=== PATIENT | male | born 1965 | race Caucasian/White ===

== ENCOUNTER 2022-01-26 21:33 | Observation (INO) ==
[2022-01-26] MEDS ORDERED: SODIUM CHLORIDE 0.9% 1000ML 1,000 ML IV ONE (22:48)
[2022-01-26 23:03] LABS: Basophils # (auto) 0.17 K/uL (0-0.2); Basophils % (auto) 1.1 %; Eosinophils # (auto) 0.76 K/uL (0-0.50); Eosinophils % (auto) 5.1 %; Hematocrit (blood only) 39.9 % (40.1-51.0); Hemoglobin 12.9 g/dl (14.0-18.0); Immature Granulocytes # (auto) 0.11 K/uL (0.00-0.02); Immature Granulocytes % (auto) 0.7 %; Lymphocytes # (auto) 2.56 K/uL (1.2-3.4); Lymphocytes % (auto) 17.1 %; Mean Corpuscular Hemoglobin 29.3 pg (25.0-34.0); Mean Corpuscular Hgb Conc 32.3 g/dL (32.0-36.0); Mean Corpuscular Volume 90.5 fL (80.0-100.0); Mean Platelet Volume 11.1 fL (9.4-12.4); Monocytes # (auto) 1.13 K/uL (0.24-0.82); Monocytes % (auto) 7.5 %; Neutrophils # (auto) 10.24 K/uL (1.4-6.5); Neutrophils % (auto) 68.5 %; Platelet Count 433 K/uL (130-400); RDW Coefficient of Variation 12.7 % (11.5-14.5); RDW Standard Deviation 41.7 fL (36.4-46.3); Red Blood Count 4.41 M/uL (4.63-6.08); White Blood Count 14.97 K/ul (4.8-10.8)
--- NOTE | 2022-01-26 23:06 | Emergency Department Note ---
History of Present Illness General Chief complaint: Dehydration Stated complaint: DEHYDRATION, DIARRHEA Time Seen by Provider: 01/26/22 22:47 History of Present Illness Maximum Pain Intensity: 5 56-year-old male presents emergency department with a 3-day history of diarrhea. Patient states initially had crampy upper abdominal pain and 2 episodes of vomiting over the past 2 days. He states he felt well today however he has had 10 episodes of diarrhea that is nonbloody but watery; patient denies sick contacts, patient states that he was at the [employer] this weekend. Patient denies bloody stools, denies recent antibiotic use. Denies history of colitis.Denies specific abdominal pain currently denies fever. There are no other mitigating or alleviating factors Past Med/Surg History Social History Smoking Status: Never smoker Feels Safe at Home: Yes Immunizations: Past medical history is diabetes, past surgical history denies, social history negative for alcohol Review of Systems A total of 10 systems reviewed and were otherwise negative Constitutional: no fever Cardiovascular: no chest pain Gastrointestinal: + nausea, + vomiting and + diarrhea/loose stools; no abdominal pain Physical Exam Vital Signs Vital Signs - 24 hr 01/26/22 21:35 01/26/22 22:00 Temperature 36 C L Temperature Source Temporal Artery Scan Pulse Rate 85 78 Respiratory Rate 18 15 Respiratory Effort / Characteristics Non-Labored Spontaneous Respiratory Depth Normal Blood Pressure 108/70 102/69 Blood Pressure Mean 82 80 Pulse Oximetry 94 97 Oxygen Delivery Method Room Air Room Air Sepsis Recent Fever Within 48 Hours No Sepsis New/Unexplained Change in Mental Status No Sepsis Action Taken by Nursing No Action Required VITAL SIGNS - Vital signs and nursing notes were reviewed. GENERAL - no acute distress. Communicates well with provider and answers questions appropriately. SKIN - Without rashes. HEAD - NC/AT. EYES - PERRL with EOMI bilaterally. Sclera anicteric. Palpebral conjunctiva pink and moist with no injection noted. EARS - No deformities of external structures noted on gross examination bilaterally. NOSE - Midline and without cyanosis. No epistaxis or purulent drainage noted. Septum midline without deviation or septal hematoma noted. MOUTH/OROPHARYNX - Without perioral cyanosis. Buccal mucosa pink and moist and without leukoplakia. NECK - Neck with FROM. Supple to palpation. LUNGS - Chest wall symmetric without accessory muscle use, intercostals retractions, or central cyanosis. Normal vesicular breath sounds CTA B/L. No wheezes, rales, or rhonchi appreciated. CARDIAC - RRR with S1/S2. No murmur, rubs, or gallops appreciated. ABDOMEN - Abdominal contour soft without pulsations or visible masses. BS normoactive all four quadrants. No tenderness, palpable masses, hepato splenomegaly, or ascites noted. EXTREMITIES - No clubbing or peripheral cyanosis. +5/5 strength noted in UE/LE bilaterally. NEUROLOGIC - Cranial nerves II through XII grossly intact. PSYCH - A&Ox3 and cooperates fully with examiner. Pt is very pleasant and interacts well with examiner. Course Reevaluation(s) Reevaluation #1: Started on IV fluids, patient clearly is dehydrated with VASILE. Patient will undergo CT, the case was discussed with the hospitalist for admission Time: 00:10 Consultations Consultation #1: Discussed with Dr. Castle for admission Time: 00:11 Administered Medications Discontinued Medications Sodium Chloride (Nss 1000ml) 1,000 mls @ 999 mls/hr IV .Q1H1M ONE Stop: 01/26/22 23:48 Last Admin: 01/26/22 23:44 Dose: 999 mls/hr Documented By: Critical Care Time Critical Care Time: Yes Total Critical Care Time: 35 I have personally spent greater than 35 minutes of critical care time in the direct management of this patient. This includes bedside care, interpretation of diagnostic studies, and testing, discussion with consultants, patient, and family members, and other required patient management activities. These minutes are in excess of all separately billable procedures. Medical Decision Making Medical Records Attestation: I reviewed the patient's medical records. Home Medications Current Medication List: was personally reviewed by me Laboratory Data Attestation: I reviewed the patient's lab results. Result diagrams: 01/26/22 21:53 01/26/22 21:53 Lab Results 01/26/22 01/26/22 01/26/22 Range/Units 21:53 21:53 23:42 WBC 14.97 H (4.8-10.8) K/ul RBC 4.41 L (4.63-6.08) M/uL Hgb 12.9 L (14.0-18.0) g/dl Hct 39.9 L (40.1-51.0) % MCV 90.5 (80.0-100.0) fL MCH 29.3 (25.0-34.0) pg MCHC 32.3 (32.0-36.0) g/dL RDW Std Deviation 41.7 (36.4-46.3) fL RDW Coeff of Flaquita 12.7 (11.5-14.5) % Plt Count 433 H (130-400) K/uL MPV 11.1 (9.4-12.4) fL Immature Gran % (Auto) 0.7 % Neut % (Auto) 68.5 % Lymph % (Auto) 17.1 % [place] % (Auto) 7.5 % Eos % (Auto) 5.1 % Baso % (Auto) 1.1 % Neut # (Auto) 10.24 H (1.4-6.5) K/uL Lymph # (Auto) 2.56 (1.2-3.4) K/uL [place] # (Auto) 1.13 H (0.24-0.82) K/uL Eos # (Auto) 0.76 H (0-0.50) K/uL Baso # (Auto) 0.17 (0-0.2) K/uL Immature Gran # (Auto) 0.11 H (0.00-0.02) K/uL Sodium 126 L (136-145) mmol/L Potassium 4.5 (3.5-5.1) mmol/L Chloride 101 (98-107) mmol/L Carbon Dioxide 16 L (21-32) mmol/L Anion Gap 9 (3-11) BUN 75 H (6-23) mg/dl Creatinine 3.30 H (0.6-1.4) mg/dl Est Cr Clr Drug Dosing 23.6 ml/min Est GFR ( Amer) 22.6 ml/min Est GFR (Non-Af Amer) 19.5 ml/min BUN/Creatinine Ratio 22.7 H (10-20) Glucose 153 H (70-99(Fasting)) mg/dl Calcium 9.2 (8.5-10.1) mg/dl Total Bilirubin 0.9 (0.2-1.0) mg/dl AST 25 (13-39) U/L ALT 26 (7-52) U/L Alkaline Phosphatase 44 (34-104) U/L Total Protein 8.5 H (6.0-8.3) gm/dl Albumin 5.1 H (3.4-5.0) gm/dl Globulin 3.4 (2.5-4.0) gm/dl Albumin/Globulin Ratio 1.5 (0.9-2) Lipase 59 (11-82) U/L SARS-CoV-2, RNA, NAAT NEGATIVE (NEGATIVE) MDM Narrative Medical decision making differential diagnosis includes dehydration, metabolic derangement, colitis, gastroenteritis, gastritis. Plan is to check labs, give IV fluids Impression & Plan VASILE (acute kidney injury), Dehydration Discharge Plan Visit Data Chief Complaint: Dehydration Stated Complaint: DEHYDRATION, DIARRHEA ED Provider: Landon Sapp Discharge Problem: VASILE (acute kidney injury), Dehydration Patient Disposition: Being Evaluated by Hospitalist Forms Stand Alone Forms: My [facility] Referrals Referrals: PCP,NO [Physician] -
[2022-01-26 23:13] LABS: Albumin Globulin Ratio 1.5 (0.9-2); Albumin Level 5.1 gm/dl (3.4-5.0); BUN Creatinine Ratio 22.7 (10-20); Bilirubin,Total 0.9 mg/dl (0.2-1.0); Calcium 9.2 mg/dl (8.5-10.1); Creatinine Clr Calc Pharmacy 23.6 ml/min; Est GFR (African American) 22.6 ml/min; Est GFR (Non-African American) 19.5 ml/min; Globulin 3.4 gm/dl (2.5-4.0); Potassium 4.5 mmol/L (3.5-5.1); Total Protein 8.5 gm/dl (6.0-8.3)
[2022-01-26 23:59] LABS: Base Excess VBG -11.9 mEq/L; HCO3 VBG 15 mmol/L; Oxygen Saturation VBG 60.2 %; PCO2 VBG 38 mmHg (38-50); PO2 VBG 37 mmHg; pH VBG 7.21 (7.36-7.41)
--- NOTE | 2022-01-27 00:36 | History & Physical Report ---
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 Basal bolus Insulin, ISS BG goal 1 10-1 40, carb count coverage DVT prophylaxis. Heparin subcu Full code Text document was generated using [employer] voice recognition software. It may contain grammatical or spelling errors. Kindly contact undersigned for clarification of any documentation item in questi on. History of Present Illness Chief Complaint: Diarrhea Primary Care Provider: Timmy Chavez MD History obtained from patient and records. 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 4 days history of nausea vomiting watery diarrhea symptoms without chest pain or shortness of breath. No fever, some chills. Transient abdominal cramping. [facility] prior to diarrheal illness. No recent antibiotic Rx. Patient consulted ER for worsening symptoms. 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 Allergies Allergy/AdvReac Type Severity Reaction Status Date / Time lisinopril Allergy Intermediate Swelling Verified 01/27/22 01:07 of Lip/Tongue/Throat Home Medications Medication Instructions Recorded Confirmed Type Vitamin B-12 1,000 mcg PO DAILY 01/27/22 01/27/22 History albuterol sulfate 2 puff inhalation QID PRN 01/27/22 01/27/22 History Congestion amlodipine 10 mg PO DAILY 01/27/22 01/27/22 History aspirin 81 mg PO DAILY 01/27/22 01/27/22 History carvedilol 25 mg tablet 37.5 mg PO BID 01/27/22 01/27/22 History cetirizine 10 mg tablet (Zyrtec) 10 mg PO HS 01/27/22 01/27/22 History dulaglutide 4.5 mg/0.5 mL 4.5 mg subcut WK 01/27/22 01/27/22 History subcutaneous pen injector (Trulicity) empagliflozin 25 mg tablet 25 mg PO DAILY 01/27/22 01/27/22 History (Jardiance) fenofibrate micronized 67 mg 67 mg PO DAILY 01/27/22 01/27/22 History capsule levothyroxine 100 mcg tablet 100 mcg PO DAILY 01/27/22 01/27/22 History losartan 100 mg tablet 100 mg PO DAILY 01/27/22 01/27/22 History metformin 500 mg tablet 500 mg PO BID 01/27/22 01/27/22 History omeprazole 20 mg capsule,delayed 20 mg PO DAILY 01/27/22 01/27/22 History release rosuvastatin 5 mg tablet 5 mg PO DAILY 01/27/22 01/27/22 History spironolactone 25 mg tablet 25 mg PO DAILY 01/27/22 01/27/22 History terazosin 1 mg capsule 2 mg PO HS 01/27/22 01/27/22 History testosterone 20.25 mg/1.25 gram 20.25 mg transdermal DAILY 01/27/22 01/27/22 History (1.62 %) transdermal gel pump Past Med/Surg History Social History Smoking Status: Never smoker Hx Alcohol Use: No Hx Substance Use: No Preferred Language: Mauritanian Communication Ability: Effective Measurement Psychologist Required: No Beliefs That Will Affect Care: None Current Living Situation: Spouse Other Information That Helps Us Care for You: No Feels Safe at Home: Yes Safety Concerns: Feels Safe At This Time Assistive Devices: CPAP Review of Systems Review of Systems: As per HPI, all other systems reviewed and negative Physical Exam Physical Exam: GENERAL: Comfortable, pleasant, no respiratory distress SKIN: Pallor, warm HEENT: Bespectacled, pale palpebral conjunctivae, no ptosis, dry buccal mucosa NECK : Supple, no tenderness CHEST : CTA, no tenderness HEART : RRR, no obvious murmurs ABDOMEN: Some distention, nontender EXTREMITIES : No LE swelling/tenderness, no other conspicuous deformities noted NEUROLOGIC : Coherent, no facial asymmetry, no other gross focality Results & Data Results & Data ([facility]) Vital Signs (Past 12 Hours) Vital Signs Temp Pulse Resp BP Pulse Ox O2 Del Method 01/27/22 00:31 76 13 117/74 99 Room Air 01/26/22 22:00 78 15 102/69 97 Room Air 01/26/22 21:35 36 C L 85 18 108/70 94 Room Air Laboratory Results Laboratory Results WBC 14.97 K/ul (4.8-10.8) H 01/26/22 21:53 RBC 4.41 M/uL (4.63-6.08) L 01/26/22 21:53 Hgb 12.9 g/dl (14.0-18.0) L 01/26/22 21:53 Hct 39.9 % (40.1-51.0) L 01/26/22 21:53 MCV 90.5 fL (80.0-100.0) 01/26/22 21:53 MCH 29.3 pg (25.0-34.0) 01/26/22 21:53 MCHC 32.3 g/dL (32.0-36.0) 01/26/22 21:53 RDW Std Deviation 41.7 fL (36.4-46.3) 01/26/22 21:53 RDW Coeff of Flaquita 12.7 % (11.5-14.5) 01/26/22 21:53 Plt Count 433 K/uL (130-400) H 01/26/22 21:53 MPV 11.1 fL (9.4-12.4) 01/26/22 21:53 Immature Gran % (Auto) 0.7 % 01/26/22 21:53 Neut % (Auto) 68.5 % 01/26/22 21:53 Lymph % (Auto) 17.1 % 01/26/22 21:53 [place] % (Auto) 7.5 % 01/26/22 21:53 Eos % (Auto) 5.1 % 01/26/22 21:53 Baso % (Auto) 1.1 % 01/26/22 21:53 Neut # (Auto) 10.24 K/uL (1.4-6.5) H 01/26/22 21:53 Lymph # (Auto) 2.56 K/uL (1.2-3.4) 01/26/22 21:53 [place] # (Auto) 1.13 K/uL (0.24-0.82) H 01/26/22 21:53 Eos # (Auto) 0.76 K/uL (0-0.50) H 01/26/22 21:53 Baso # (Auto) 0.17 K/uL (0-0.2) 01/26/22 21:53 Immature Gran # (Auto) 0.11 K/uL (0.00-0.02) H 01/26/22 21:53 VBG pH 7.21 (7.36-7.41) L 01/26/22 23:53 VBG pCO2 38 mmHg (38-50) 01/26/22 23:53 VBG pO2 37 mmHg 01/26/22 23:53 VBG HCO3 15 mmol/L 01/26/22 23:53 VBG O2 Saturation 60.2 % 01/26/22 23:53 VBG Base Excess -11.9 mEq/L 01/26/22 23:53 Sodium 126 mmol/L (136-145) L 01/26/22 21:53 Potassium 4.5 mmol/L (3.5-5.1) 01/26/22 21:53 Chloride 101 mmol/L (98-107) 01/26/22 21:53 Carbon Dioxide 16 mmol/L (21-32) L 01/26/22 21:53 Anion Gap 9 (3-11) 01/26/22 21:53 BUN 75 mg/dl (6-23) H 01/26/22 21:53 Creatinine 3.30 mg/dl (0.6-1.4) H 01/26/22 21:53 Est Cr Clr Drug Dosing 23.6 ml/min 01/26/22 21:53 Est GFR ( Amer) 22.6 ml/min 08/30/22 21:53 Est GFR (Non-Af Amer) 19.5 ml/min 01/26/22 21:53 BUN/Creatinine Ratio 22.7 (10-20) H 01/26/22 21:53 Glucose 153 mg/dl (70-99(Fasting)) H 01/26/22 21:53 Calcium 9.2 mg/dl (8.5-10.1) 01/26/22 21:53 Total Bilirubin 0.9 mg/dl (0.2-1.0) 01/26/22 21:53 AST 25 U/L (13-39) 01/26/22 21:53 ALT 26 U/L (7-52) 01/26/22 21:53 Alkaline Phosphatase 44 U/L (34-104) 01/26/22 21:53 Total Protein 8.5 gm/dl (6.0-8.3) H 01/26/22 21:53 Albumin 5.1 gm/dl (3.4-5.0) H 01/26/22 21:53 Globulin 3.4 gm/dl (2.5-4.0) 01/26/22 21:53 Albumin/Globulin Ratio 1.5 (0.9-2) 01/26/22 21:53 Lipase 59 U/L (11-82) 01/26/22 21:53 SARS-CoV-2, RNA, NAAT NEGATIVE (NEGATIVE) 01/26/22 23:[address] abd pelvis initial read: Fluid within the colon compatible with a nonspecific diarrheal state. No colonicwall thickening evident to suggest colitis Moderate gastric distention predominantlyfluid-filled maysimplyreflect recent fluid ingestion. Further GI evaluation recommended onlyin the setting of symptoms of gastric outlet obstruction Solid organs in the upper abdomen are normal The gallbladder is contracted Chest x-ray as per my interpretation borderline cardiomegaly
[2022-01-27] MEDS ORDERED: LACTATED RINGER'S 1,000 ML IV ONE (00:52)
[2022-01-27 01:39] LABS: Appearance Urine Clear (Clear); Bilirubin Urine Negative (Negative); Blood Urine Negative (Negative); Color Urine Yellow; Glucose Urine UA 3+ (Negative); Ketones Urine Negative (Negative); Leukocyte Esterase Urine Negative (Negative); Nitrite Urine Negative (Negative); Protein Urine Negative (Negative); Specific Gravity Urine 1.009 (1.000-1.030); Urobilinogen Urine Negative (Negative)
[2022-01-27 01:46] LABS: BUN Creatinine Ratio 26.7 (10-20); Calcium 8.2 mg/dl (8.5-10.1); Creatinine Clr Calc Pharmacy 27.7 ml/min; Est GFR (African American) 27.5 ml/min; Est GFR (Non-African American) 23.7 ml/min; Potassium 4.4 mmol/L (3.5-5.1)
[2022-01-27 01:52] LABS: Adenovirus F 40/41 PCR Not Detected (NotDetected); Astrovirus PCR Not Detected (NotDetected); Campylobacter PCR Not Detected (NotDetected); Clostridium diff Toxin A/B PCR Not Detected (NotDetected); Cryptosporidium PCR Not Detected (NotDetected); Cyclospora cayetanensis PCR Not Detected (NotDetected); Entamoeba histolytica PCR Not Detected (NotDetected); Enteroaggregative E.coli(EAEC) Not Detected (NotDetected); Enteropathogenic E.coli (EPEC) Not Detected (NotDetected); Enterotoxigenic E.coli (ETEC) Not Detected (NotDetected); Giardia lamblia PCR Not Detected (NotDetected); Norovirus GI/GII PCR Not Detected (NotDetected); Plesiomonas shigelloides PCR Not Detected (NotDetected); Rotavirus A PCR Not Detected (NotDetected); Salmonella PCR Not Detected (NotDetected); Sapovirus PCR Not Detected (NotDetected); Shiga-like Toxin E.coli (STEC) Not Detected (NotDetected); Shigella/Enteroinvasive E.coli Not Detected (NotDetected); Vibrio cholerae PCR Not Detected (NotDetected); Vibrio species PCR Not Detected (NotDetected); Yersinia enterocolitica PCR Not Detected (NotDetected)
[2022-01-27] MEDS ORDERED: PROMETHAZINE HCL 12.5 MG in SODIUM CHLORIDE 0.9% 50 ML IV PRN (03:54)
[2022-01-27] MEDS ORDERED: ACETAMINOPHEN 325 MG TAB PO PRN (03:54)
[2022-01-27] MEDS ORDERED: oxyCODONE HCL IR 5 MG TAB (IMMEDIATE RELEASE) PO PRN (03:54)
[2022-01-27] MEDS ORDERED: GLUCOSE 10 TAB/TUBE PO PRN (03:54)
[2022-01-27] MEDS ORDERED: CARBOHYDRATES FOR HYPOGLYCEMIA PO PRN (03:54)
[2022-01-27] MEDS ORDERED: GLUCAGON FOR INJ 1 MG VIAL SQ PRN (03:54)
[2022-01-27] MEDS ORDERED: DEXTROSE 50% 50 ML SYRINGE IV PRN (03:54)
[2022-01-27] MEDS ORDERED: GLUCOSE 40% GEL 15 GM TUBE PO PRN (03:54)
[2022-01-27] MEDS: INSULIN ASPART PER UNIT SC SCH ×5 (04:52→20:16)
[2022-01-27] MEDS: LEVOTHYROXINE SODIUM 100 MCG TABLET PO SCH (06:07)
[2022-01-27] MEDS: HEPARIN SOD 5,000 UNIT/0.5 ML VIAL SQ SCH ×3 (06:20→21:53)
[2022-01-27 07:01] LABS: Basophils # (auto) 0.11 K/uL (0-0.2); Basophils % (auto) 0.9 %; Eosinophils # (auto) 0.77 K/uL (0-0.50); Eosinophils % (auto) 6.5 %; Hematocrit (blood only) 34.9 % (40.1-51.0); Hemoglobin 11.3 g/dl (14.0-18.0); Immature Granulocytes # (auto) 0.08 K/uL (0.00-0.02); Immature Granulocytes % (auto) 0.7 %; Lymphocytes # (auto) 2.21 K/uL (1.2-3.4); Lymphocytes % (auto) 18.7 %; Mean Corpuscular Hgb Conc 32.4 g/dL (32.0-36.0); Mean Corpuscular Volume 89.7 fL (80.0-100.0); Mean Platelet Volume 10.3 fL (9.4-12.4); Monocytes % (auto) 8.5 %; Neutrophils # (auto) 7.64 K/uL (1.4-6.5); Neutrophils % (auto) 64.7 %; Platelet Count 335 K/uL (130-400); RDW Coefficient of Variation 12.7 % (11.5-14.5); RDW Standard Deviation 41.4 fL (36.4-46.3); Red Blood Count 3.89 M/uL (4.63-6.08); White Blood Count 11.81 K/ul (4.8-10.8)
[2022-01-27 07:28] LABS: BUN Creatinine Ratio 28.3 (10-20); Calcium 8.1 mg/dl (8.5-10.1); Creatinine Clr Calc Pharmacy 31.5 ml/min; Est GFR (African American) 32.1 ml/min; Est GFR (Non-African American) 27.7 ml/min; Potassium 4.4 mmol/L (3.5-5.1)
[2022-01-27] MEDS ORDERED: LACTATED RINGER'S 1,000 ML IV SCH (07:45)
--- NOTE | 2022-01-27 08:00 | CT Scan Report ---
CT abd pelvis wo con CLINICAL HISTORY: diarrhea TECHNIQUE: Helical axial images of the abdomen and pelvis were obtained. Automated dose lowering tech niques and/or adjustment according to patient size were utilized for this exam. This exam was perfor med without intravenous contrast. CT DOSE: 331.82 mGy.cm COMPARISON: None available at the time of this dictation. FINDINGS: Lower chest: No acute abnormality Liver: Hepatic steatosis is noted. Gallbladder and biliary tree: No calcified gallstones. Normal caliber wall. No intra- or extrahepatic biliary ductal dilation. Pancreas: Unremarkable, no focal lesions. Spleen: Unremarkable. Adrenals: Unremarkable. Kidneys and ureters: Unremarkable. Bladder: Limited evaluation due to underdistention. Reproductive organs: Unremarkable. Bowel: Liquid contents are seen in the colon. No wall thickening or fat stranding is seen. The append ix appears normal. The stomach is distended. Lymph nodes Retroperitoneal: Unremarkable. Pelvic: Unremarkable. Mesenteric: Subcentimeter lymph nodes are noted. Peritoneum: Normal. Vessels: Unremarkable. Abdominal wall: Bilateral fat-containing inguinal hernias are seen. Bones: Degenerative changes in the visualized spine. IMPRESSION: 1. Limited contents in the colon compatible with diarrhea. No evidence of bowel inflammation or obst ruction. 2. Hepatic steatosis. ACT 112: Negative or not required by law. Electronically signed by: Srinivas Gill M.D. 01/27/2022 7:58 AM
[2022-01-27] MEDS: PANTOprazole 40 MG TAB PO SCH (08:07)
[2022-01-27] MEDS: FENOFIBRATE NANOCRYSTALLIZED 48 MG TABLET PO SCH (08:07)
[2022-01-27] MEDS: ROSUVASTATIN CALCIUM 5 MG TAB PO SCH (08:07)
[2022-01-27] MEDS: amLODIPine BESYLATE 5 MG TAB PO SCH (08:07)
[2022-01-27] MEDS: MAGNESIUM SULFATE / D5W 1 GM/100 ML BAG IV SCH ×3 (08:13→12:11)
[2022-01-27] MEDS: LANTUS PER UNIT CHARGE SQ SCH (08:18)
--- NOTE | 2022-01-27 08:56 | XRay Report ---
XR chest 1V portable HISTORY: Renal failure. COMPARISON: None. FINDINGS: The lungs are clear. Cardiac silhouette is top normal in size. No pleural effusions. No pne umothorax. IMPRESSION: No acute process. ACT 112: Negative or not required by law. Electronically signed by: Alvaro Bass M.D. 01/27/2022 8:55 AM
--- NOTE | 2022-01-27 09:59 | Ultrasound Report ---
RENAL ULTRASOUND HISTORY: Acute kidney injury COMPARISON: Abdomen and pelvis CT 01/27/2022. FINDINGS: Right kidney: 11.0 cm. No hydronephrosis. Normal corticomedullary differentiation. Mild cortical thin robert/lobulation. Left kidney: 11.2 cm. No hydronephrosis. Normal corticomedullary differentiation. Mild cortical thinn ing/lobulation. Bladder: No bladder wall thickening. The bilateral ureteral jets were identified. Miscellaneous: Hepatic steatosis. IMPRESSION: 1. Mild bilateral renal cortical thinning/lobulation. This is likely chronic. 2. No hydronephrosis. 3. Hepatic steatosis ACT 112: Negative or not required by law. Electronically signed by: Alvaro Bass M.D. 01/27/2022 9:57 AM
--- NOTE | 2022-01-27 12:44 | Hospitalist Progress Note ---
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 He was found to have VASILE on CKD, hyponatremia and non- anion gap metabolic acidosis. Patient was admitted to telemetry floor for further care. Gastroenteritis VASILE on CKD, likely prerenal secondary to gastroenteritis Hyponatremia likely hypovolemic Non-anion gap metabolic acidosis secondary to diarrhea and VASILE Afebrile, normotensive and saturating well on room air. WBC down trended from 14.9-11.8. Sodium improved from 1 26-1 28. Urine osmolarity on the lower side. Calculate serum osmolality was 287; serum osmolarity in lab 301. Higher serum osmolarity in setting of hyponatremia due to increased BUN and glucose. [id number] Creatinine down trended to 2.47; baseline around 1.6 ( labs done in 04/2021) GI bio fire is negative Renal ultrasoundno hydronephrosis Plan; Continue IV hydration for now. No fever, chills, blood/mucus in stool. This is more suggestive of viral gastroenteritis. Advance diet as tolerated. -Continue to monitor sodium; appropriately going up. -Nephrology consulted; patient follows up with Dr. Augustine as outpatient. -Need to hold his antihypertensive. Only on amlodipine currently. Chronic conditions; Type 2 diabetes mellitus, continue on glargine and sliding scale Hyperlipidemia continue rosuvastatin Hypothyroidismcontinue levothyroxine CODE STATUS full DVT ppx- heparin Dispo- pending clinical improvement; [facility] home. Admission and Anticipated Discharge Date Admission Date: January 27, 2022 Subjective Patient seen and examined at bedside. He continues to have loose bowel movement. However, he feels that the abdominal pain has decreased compared to presentation. He says that his appetite is back and would like to try regular food. Review of Systems Review of Systems: All systems reviewed & are unremarkable except as noted in Subjective Physical Exam Physical Exam: GENERAL: Comfortable, pleasant, no respiratory distress SKIN: Pallor, warm HEENT: Bespectacled, pale palpebral conjunctivae, no ptosis, dry buccal mucosa NECK : Supple, no tenderness CHEST : CTA, no tenderness HEART : RRR, no obvious murmurs ABDOMEN: Some distention, nontender EXTREMITIES : No LE swelling/tenderness, no other conspicuous deformities noted NEUROLOGIC : Coherent, no facial asymmetry, no other gross focality Results & Data Results & Data ([facility]) Vital Signs (Past 12 Hours) Vital Signs Temp Pulse Pulse Resp BP BP BP 01/27/22 11:31 36.6 C 67 16 107/64 01/27/22 10:49 75 01/27/22 07:50 36.8 C 76 18 103/61 01/27/22 04:53 36.9 C 78 18 112/74 01/27/22 02:18 77 01/27/22 02:07 36.9 C 78 18 112/74 01/27/22 01:00 75 13 118/72 01/27/22 00:31 76 13 117/74 Pulse Ox O2 Del Method 01/27/22 11:31 97 Room Air 01/27/22 10:49 01/27/22 07:50 97 Room Air 01/27/22 04:53 98 Room Air 01/27/22 02:18 01/27/22 02:07 98 Room Air 01/27/22 01:00 97 Room Air 01/27/22 00:31 99 Room Air Diagnostic Findings Laboratory Results WBC 11.81 K/ul (4.8-10.8) H 01/27/22 06:42 RBC 3.89 M/uL (4.63-6.08) L 01/27/22 06:42 Hgb 11.3 g/dl (14.0-18.0) L 01/27/22 06:42 Hct 34.9 % (40.1-51.0) L 01/27/22 06:42 MCV 89.7 fL (80.0-100.0) 01/27/22 06:42 MCH 29.0 pg (25.0-34.0) 01/27/22 06:42 MCHC 32.4 g/dL (32.0-36.0) 01/27/22 06:42 RDW Std Deviation 41.4 fL (36.4-46.3) 01/27/22 06:42 RDW Coeff of [place]qu[place] 12.7 % (11.5-14.5) 01/27/22 06:42 Plt Count 335 K/uL (130-400) 01/27/22 06:42 MPV 10.3 fL (9.4-12.4) 01/27/22 06:42 Immature Gran % (Auto) 0.7 % 01/27/22 06:42 Neut % (Auto) 64.7 % 01/27/22 06:42 Lymph % (Auto) 18.7 % 01/27/22 06:42 [place] % (Auto) 8.5 % 01/27/22 06:42 Eos % (Auto) 6.5 % 01/27/22 06:42 Baso % (Auto) 0.9 % 01/27/22 06:42 Neut # (Auto) 7.64 K/uL (1.4-6.5) H 01/27/22 06:42 Lymph # (Auto) 2.21 K/uL (1.2-3.4) 01/27/22 06:42 [place] # (Auto) 1.00 K/uL (0.24-0.82) H 01/27/22 06:42 Eos # (Auto) 0.77 K/uL (0-0.50) H 01/27/22 06:42 Baso # (Auto) 0.11 K/uL (0-0.2) 01/27/22 06:42 Immature Gran # (Auto) 0.08 K/uL (0.00-0.02) H 01/27/22 06:42 VBG pH 7.21 (7.36-7.41) L 01/26/22 23:53 VBG pCO2 38 mmHg (38-50) 01/26/22 23:53 VBG pO2 37 mmHg 01/26/22 23:53 VBG HCO3 15 mmol/L 01/26/22 23:53 VBG O2 Saturation 60.2 % 01/26/22 23:53 VBG Base Excess -11.9 mEq/L 01/26/22 23:53 Sodium 128 mmol/L (136-145) L 01/27/22 06:42 Potassium 4.4 mmol/L (3.5-5.1) 01/27/22 06:42 Chloride 107 mmol/L (98-107) 01/27/22 06:42 Carbon Dioxide 14 mmol/L (21-32) L 01/27/22 06:42 Anion Gap 7 (3-11) 01/27/22 06:42 BUN 70 mg/dl (6-23) H 01/27/22 06:42 Creatinine 2.47 mg/dl (0.6-1.4) H D 01/27/22 06:42 Est Cr Clr Drug Dosing 31.5 ml/min 01/27/22 06:42 Est GFR ( Amer) 32.1 ml/min 01/27/22 06:42 Est GFR (Non-Af Amer) 27.7 ml/min 01/27/22 06:42 BUN/Creatinine Ratio 28.3 (10-20) H 01/27/22 06:42 Glucose 108 mg/dl (70-99(Fasting)) H 01/27/22 06:42 POC Glucose 101 mg/dl (70-99) H 01/27/22 11:45 Osmolality 301 mOsm/kg (280-300) H 01/26/22 21:53 Calcium 8.1 mg/dl (8.5-10.1) L 01/27/22 06:42 Magnesium 1.3 mg/dl (1.7-2.4) L 01/26/22 21:53 Total Bilirubin 0.9 mg/dl (0.2-1.0) 01/26/22 21:53 AST 25 U/L (13-39) 01/26/22 21:53 ALT 26 U/L (7-52) 01/26/22 21:53 Alkaline Phosphatase 44 U/L (34-104) 01/26/22 21:53 Total Protein 8.5 gm/dl (6.0-8.3) H 01/26/22 21:53 Albumin 5.1 gm/dl (3.4-5.0) H 01/26/22 21:53 Globulin 3.4 gm/dl (2.5-4.0) 01/26/22 21:53 Albumin/Globulin Ratio 1.5 (0.9-2) 01/26/22 21:53 Lipase 59 U/L (11-82) 01/26/22 21:53 TSH 3.185 uIu/ml (0.300-4.500) 01/26/22 21:53 Urine Color Yellow 01/27/22 01:32 Urine Appearance Clear (Clear) 01/27/22 01:32 Urine pH 5.0 (4.5-7.5) 01/27/22 01:32 Ur Specific [place] 1.009 (1.000-1.030) 01/27/22:32 Urine Protein Negative (Negative) 01/27/22:32 Urine Glucose (UA) 3+ (Negative) H 01/27/22 01:32 Urine Ketones Negative (Negative) 01/27/22:32 Urine Blood Negative (Negative) 01/27/22: Urine Nitrite Negative (Negative) 01/27/22 01: Urine Bilirubin Negative (Negative) 01/27/22 01:32 Urine Urobilinogen Negative (Negative) 01/27/22:32 Ur Leukocyte Esterase Negative (Negative) 01/27/22:32 Urine Osmolality 238 mOsm/kg (500-800) L 01/27/22 01:32 Stl C. cayetanensis PCR Not Detected (NotDetected) 01/27/22 00:25 Stool Rotavirus A PCR Not Detected (NotDetected) 01/27/22 00:25 Stl Adenov F 40/41 PCR Not Detected (NotDetected) 01/27/22 00:25 Stool Astrovirus (PCR) Not Detected (NotDetected) 01/27/22 00:25 Stool Campylobacter PCR Not Detected (NotDetected) 01/27/22 00:25 Stl C. diff Tox A/B PCR Not Detected (NotDetected) 01/27/22 00:25 Stool Cryptosporidium PCR Not Detected (NotDetected) 01/27/22 00:25 Stl E.coli Shiga Tox PCR Not Detected (NotDetected) 01/27/22 00:25 Stl Enterotoxigenic E PCR Not Detected (NotDetected) 01/27/22 00:25 Stool EPEC (PCR) Not Detected (NotDetected) 01/27/22 00:25 Stool EAEC (PCR) Not Detected (NotDetected) 01/27/22 00:25 Stl E. histolytica PCR Not Detected (NotDetected) 01/27/22 00:25 Stool Giardia Lamblia PCR Not Detected (NotDetected) 01/27/22 00:25 Stool Salmonella PCR Not Detected (NotDetected) 01/27/22 00:25 Stool Sapovirus (PCR) Not Detected (NotDetected) 01/27/22 00:25 Stl P. shigelloides PCR Not Detected (NotDetected) 01/27/22 00:25 Stl Shigella/EIEC PCR Not Detected (NotDetected) 01/27/22 00:25 St Y.enterocolitica PCR Not Detected (NotDetected) 01/27/22 00:25 Stool Vibrio (PCR) Not Detected (NotDetected) 01/27/22 00:25 Stl Vibrio cholerae PCR Not Detected (NotDetected) 01/27/22 00:25 Stl Norovirus GI/GII PCR Not Detected (NotDetected) 01/27/22 00:25 SARS-CoV-2, RNA, NAAT NEGATIVE (NEGATIVE) 01/26/22 23:42 Impressions Abdomen/Pelvis CT 01/26/22 23:27 CT abd pelvis wo con CLINICAL HISTORY: diarrhea TECHNIQUE: Helical axial images of the abdomen and pelvis were obtained. Automated dose lowering techniques and/or adjustment according to patient size were utilized for this exam. This exam was performed without intravenous contrast. CT DOSE: 331.82 mGy.cm COMPARISON: None available at the time of this dictation. FINDINGS: Lower chest: No acute abnormality Liver: Hepatic steatosis is noted. Gallbladder and biliary tree: No calcified gallstones. Normal caliber wall. No intra- or extrahepatic biliary ductal dilation. Pancreas: Unremarkable, no focal lesions. Spleen: Unremarkable. Adrenals: Unremarkable. Kidneys and ureters: Unremarkable. Bladder: Limited evaluation due to underdistention. Reproductive organs: Unremarkable. Bowel: Liquid contents are seen in the colon. No wall thickening or fat stranding is seen. The appendix appears normal. The stomach is distended. Lymph nodes Retroperitoneal: Unremarkable. Pelvic: Unremarkable. Mesenteric: Subcentimeter lymph nodes are noted. Peritoneum: Normal. Vessels: Unremarkable. Abdominal wall: Bilateral fat-containing inguinal hernias are seen. Bones: Degenerative changes in the visualized spine. IMPRESSION: 1. Limited contents in the colon compatible with diarrhea. No evidence of bowel inflammation or obstruction. 2. Hepatic steatosis. ACT 112: Negative or not required by law. Electronically signed by: Srinivas Gill M.D. 01/27/2022 7:58 AM Chest X-Ray 01/27/22 00:16 XR chest 1V portable HISTORY: Renal failure. COMPARISON: None. FINDINGS: The lungs are clear. Cardiac silhouette is top normal in size. No pleural effusions. No pneumothorax. IMPRESSION: No acute process. ACT 112: Negative or not required by law. Electronically signed by: Alvaro Bass M.D. 01/27/2022 8:55 AM Renal Ultrasound 01/27/22 07:43 RENAL ULTRASOUND HISTORY: Acute kidney injury COMPARISON: Abdomen and pelvis CT 01/27/2022. FINDINGS: Right kidney: 11.0 cm. No hydronephrosis. Normal corticomedullary differentiation. Mild cortical thinning/lobulation. Left kidney: 11.2 cm. No hydronephrosis. Normal corticomedullary differentia tion. Mild cortical thinning/lobulation. Bladder: No bladder wall thickening. The bilateral ureteral jets were identified. Miscellaneous: Hepatic steatosis. IMPRESSION: 1. Mild bilateral renal cortical thinning/lobulation. This is likely chronic. 2. No hydronephrosis. 3. Hepatic steatosis ACT 112: Negative or not required by law. Electronically signed by: Alvaro Bass M.D. 01/27/2022 9:57 AM
--- NOTE | 2022-01-27 17:18 | Nephrology Consultation ---
Date of Consultation January 27, 2022 Assessment & Plan (1) Hyponatremia: no prior/OP hx of hyponatremia; likely hypovolemic based on hx/response. asymptomatic improving on labs this am. Goal sNa for this evening is 132 though would accept to 137 -recheck bmp and mag now > may need D5W versus just observation -Stop IVF (2) Acute on chronic renal failure: improving w/ supportive care; cont same -agree w/ holding jardiance, metformin, leatha antag -daily bmp History of Present Illness Reason for Consultation: hyponatremia, VASILE Requesting Physician: Dr White Attending Physician: Shailesh White MD History of Present Illness 56 y/o M whom I'm asked to evaluate for hyponatremia and VASILE was admitted for management of volume depletion and VASILE on CKD after he presented w/ presumed food borne illness. PMH includes nonproteinuric CKD 3A/B baseline creatinine 1.6-1.7, panhypopituitarism from trauma w/ resultant growth hormone deficiency/hypogonadism/hypothyroid, CAD, HTN, HL, DM on po meds, severe EDA on CPAP. Ate a sausage sandwich at [employer] and w/in 12 hrs developed n/v/watery diarrhea (q30 min for some of the time) intermittent crampy abd pain which persisted x 3 days. No f/c; no rash. no new/worrisome voiding sx. did have some severe heartburn as well at start and intermittently; has resolved since arrival here. On arrival his sNa was 126 (to 128 by 0900); creatinine 3.3 (to 2.5 by 0900); WBC 14K. Started on LR at 100 mL/hr after 1LNS. Allergies Allergy/AdvReac Type Severity Reaction Status Date / Time lisinopril Allergy Intermediate Swelling Verified 01/27/22 01:07 of Lip/Tongue/Throat Home Medications Medication Instructions Recorded Confirmed Type Vitamin B-12 1,000 mcg PO DAILY 01/27/22 01/27/22 History albuterol sulfate 2 puff inhalation QID PRN 01/27/22 01/27/22 History Congestion amlodipine 10 mg PO DAILY 01/27/22 01/27/22 History aspirin 81 mg PO DAILY 01/27/22 01/27/22 History carvedilol 25 mg tablet 37.5 mg PO BID 01/27/22 01/27/22 History cetirizine 10 mg tablet (Zyrtec) 10 mg PO HS 01/27/22 01/27/22 History dulaglutide 4.5 mg/0.5 mL 4.5 mg subcut WK 01/27/22 01/27/22 History subcutaneous pen injector (Trulicity) empagliflozin 25 mg tablet 25 mg PO DAILY 01/27/22 01/27/22 History (Jardiance) fenofibrate micronized 67 mg 67 mg PO DAILY 01/27/22 01/27/22 History capsule levothyroxine 100 mcg tablet 100 mcg PO DAILY 01/27/22 01/27/22 History losartan 100 mg tablet 100 mg PO DAILY 01/27/22 01/27/22 History metformin 500 mg tablet 500 mg PO BID 01/27/22 01/27/22 History omeprazole 20 mg capsule,delayed 20 mg PO DAILY 01/27/22 01/27/22 History release rosuvastatin 5 mg tablet 5 mg PO DAILY 01/27/22 01/27/22 History spironolactone 25 mg tablet 25 mg PO DAILY 01/27/22 01/27/22 History terazosin 1 mg capsule 2 mg PO HS 01/27/22 01/27/22 History testosterone 20.25 mg/1.25 gram 20.25 mg transdermal DAILY 01/27/22 01/27/22 History (1.62 %) transdermal gel pump Patient History Medical History CAD (coronary artery disease) CKD (chronic kidney disease) stage 3, GFR 30-59 ml/min HTN (hypertension) DEA (obstructive sleep apnea) Panhypopituitarism Type 2 diabetes mellitus Family History Father Hypertension Mother Diabetes Social History Smoking Status: Never smoker Hx Alcohol Use: No Hx Substance Use: No Preferred Language: Haitian Communication Ability: Effective [employer] Messenger Required: No Beliefs That Will Affect Care: None Current Living Situation: Spouse Other Information That Helps Us Care for You: No Feels Safe at Home: Yes Safety Concerns: Feels Safe At This Time Assistive Devices: CPAP Review of Systems Review of Systems: All systems reviewed & are unremarkable except as noted in HPI & below Physical Exam Constitutional: well developed and well nourished; no acute distress Eyes: EOM intact bilaterally ENMT: Ears: no external ear abnormality Nose: no external nose abnormality Mouth: + dry oral mucous membranes Neck: no nuchal rigidity Respiratory: normal respiratory effort Auscultation: lungs clear to auscultation bilaterally Cardiovascular: RRR, no murmur, no edema Gastrointestinal (Abdomen): Inspection/Auscultation: normal bowel sounds Percussion/Palpation: abdomen soft; abdomen nontender Musculoskeletal: Extremities: strength 5/5 throughout Skin: no rashes, warm and dry Neurologic: crabtree, fluent speech, no tremor Psychiatric: Orientation: oriented x 3 Speech: normal rate/rhythm/volume of speech Results & Data ([facility]) Vital Signs (Past 12 Hours) Vital Signs Temp Pulse Pulse Resp BP BP Pulse Ox 01/27/22 15:38 69 01/27/22 14:52 36.8 C 68 18 110/67 98 01/27/22 11:31 36.6 C 67 16 107/64 97 01/27/22 10:49 75 01/27/22 07:50 36.8 C 76 18 103/61 97 O2 Del Method 01/27/22 15:38 01/27/22 14:52 Room Air 01/27/22 11:31 Room Air 01/27/22 10:49 01/27/22 07:50 Room Air Laboratory Results 01/27/22 06:42 01/27/22 06:42
[2022-01-27 19:17] LABS: BUN Creatinine Ratio 24.6 (10-20); Calcium 8.5 mg/dl (8.5-10.1); Creatinine Clr Calc Pharmacy 33.6 ml/min; Est GFR (African American) 34.6 ml/min; Est GFR (Non-African American) 29.9 ml/min; Magnesium 2.2 mg/dl (1.7-2.4); Potassium 4.6 mmol/L (3.5-5.1)
[2022-01-28] MEDS: HEPARIN SOD 5,000 UNIT/0.5 ML VIAL SQ SCH (06:04)
[2022-01-28] MEDS: LEVOTHYROXINE SODIUM 100 MCG TABLET PO SCH (06:04)
[2022-01-28 07:49] LABS: Albumin Globulin Ratio 1.6 (0.9-2); Albumin Level 4.2 gm/dl (3.4-5.0); BUN Creatinine Ratio 25.5 (10-20); Bilirubin,Total 0.6 mg/dl (0.2-1.0); Creatinine Clr Calc Pharmacy 41.4 ml/min; Est GFR (African American) 44.6 ml/min; Est GFR (Non-African American) 38.5 ml/min; Globulin 2.7 gm/dl (2.5-4.0); Magnesium 2.1 mg/dl (1.7-2.4); Potassium 4.6 mmol/L (3.5-5.1); Total Protein 6.9 gm/dl (6.0-8.3)
[2022-01-28] MEDS: INSULIN ASPART PER UNIT SC SCH (08:43)
[2022-01-28] MEDS: LANTUS PER UNIT CHARGE SQ SCH (08:43)
[2022-01-28] MEDS: FENOFIBRATE NANOCRYSTALLIZED 48 MG TABLET PO SCH (08:47)
[2022-01-28] MEDS: ROSUVASTATIN CALCIUM 5 MG TAB PO SCH (08:47)
[2022-01-28] MEDS: amLODIPine BESYLATE 5 MG TAB PO SCH (08:47)
[2022-01-28] MEDS: PANTOprazole 40 MG TAB PO SCH (08:47)
--- NOTE | 2022-01-28 08:55 | Nephrology Progress Note ---
Date of Service January 28, 2022 Assessment & Plan (1) Hyponatremia: Plan: no prior/OP hx of hyponatremia; likely hypovolemic based on hx/response. asymptomatic improving on labs this am. corrected a bit fast but overall at goal -resumed LR at 80 for now (2) Acute on chronic renal failure: Plan: improving w/ supportive care; cont same; stage 2 nonoliguric prerenal VASILE -agree w/ holding jardiance, metformin, leatha antag -daily bmp FROM neph standpoint could be d/c home if diarrhea remains resolved -reintroduce jardiance/leatha antagonist one by one weekly once renal function back to normal -recheck bmp weekly x 3 to be ordered by neph RN after d/c -no need for hospital d/c neph appt unless OP labs concerning -no fluid limit at d/c Admission and Anticipated Discharge Date Admission Date: January 27, 2022 Subjective no further diarrhea since yesterday am; feels improved overall; no n/v; no voiding concerns; no sob Review of Systems Review of Systems: All systems reviewed & are unremarkable except as noted in Subjective Physical Exam Constitutional: well developed and well nourished; no acute distress Eyes: EOM intact bilaterally ENMT: Ears: no external ear abnormality Nose: no external nose abnormality Mouth: + dry oral mucous membranes Neck: no nuchal rigidity Respiratory: normal respiratory effort Auscultation: lungs clear to auscultation bilaterally Cardiovascular: RRR, no murmur, no edema Gastrointestinal (Abdomen): Inspection/Auscultation: normal bowel sounds Percussion/Palpation: abdomen soft; abdomen nontender Musculoskeletal: Extremities: strength 5/5 throughout Skin: no rashes, warm and dry Psychiatric: Orientation: oriented x 3 Speech: normal rate/rhythm/volume of speech Results & Data ([facility]) Vital Signs (Past 12 Hours) Vital Signs Temp Pulse Pulse Resp BP Pulse Ox O2 Del Method 01/28/22 07:50 36.9 C 69 18 120/69 97 Room Air 01/28/22 06:57 70 01/28/22 03:00 36.4 C L 68 18 134/76 95 Room Air 01/27/22 22:20 71 01/27/22 22:00 36.6 C 73 20 132/75 98 Room Air Laboratory Results 01/27/22 06:42 01/28/22 07:13
[2022-01-28] MEDS ORDERED: LACTATED RINGER'S 1,000 ML IV SCH (09:00)
--- NOTE | 2022-01-28 15:27 | Discharge Summary ---
Date of Service January 28, 2022 Admission HPI Per Admitting Provider History obtained from patient and records. 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 4 days history of nausea vomiting watery diarrhea symptoms without chest pain or shortness of breath. No fever, some chills. Transient abdominal cramping. Consumption of a sausage sandwich at the [employer] prior to diarrheal illness. No recent antibiotic Rx. Patient consulted ER for worsening symptoms. 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 Admission Exam Per Admitting Provider GENERAL: Comfortable, pleasant, no respiratory distress SKIN: Pallor, warm HEENT: Bespectacled, pale palpebral conjunctivae, no ptosis, dry buccal mucosa NECK : Supple, no tenderness CHEST : CTA, no tenderness HEART : RRR, no obvious murmurs ABDOMEN: Some distention, nontender EXTREMITIES : No LE swelling/tenderness, no other conspicuous deformities noted NEUROLOGIC : Coherent, no facial asymmetry, no other gross focality Principal Diagnosis Viral Gastroenteritis VASILE on CKD, likely prerenal secondary to gastroenteritis Hyponatremia likely hypovolemic Non-anion gap metabolic acidosis secondary to diarrhea and VASILE Discharge Exam GENERAL: Comfortable, pleasant, no respiratory distress SKIN: Pallor, warm HEENT: Bespectacled, pale palpebral conjunctivae, no ptosis, dry buccal mucosa NECK : Supple, no tenderness CHEST : CTA, no tenderness HEART : RRR, no obvious murmurs ABDOMEN: Some distention, nontender EXTREMITIES : No LE swelling/tenderness, no other conspicuous deformities noted NEUROLOGIC : Coherent, no facial asymmetry, no other gross focality Discharge Data Allergies Allergy/AdvReac Type Severity Reaction Status Date / Time lisinopril Allergy Intermediate Swelling Verified 01/27/22 01:07 of Lip/Tongue/Throat Consultations 01/27/22 00:08 ED Decision to Admit Stat 01/27/22 09:19 Consult Nephrology Routine Ordered Studies 01/26/22 23:27 CT abd pelvis wo con Urgent 01/27/22 07:43 US Renal Bladder [US renal/blad retro comp] Routine Hospital Course (1) Gastroenteritis: (2) Hyponatremia: (3) VASILE (acute kidney injury): (4) Type 2 diabetes mellitus: Plan Patient is a 56-year-old male with past medical history of type 2 diabetes mellitus, CKD stage III, hypertension, hyperlipidemia, 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 He was found to have VASILE on CKD, hyponatremia(126) and non-anion gap metabolic acidosis. Patient was admitted to telemetry floor for further care. Patient was treated with IV hydration. GI bio fire was negative for any pathogens. Nephrology consulted for co-management. Patient's sodium continued to improve with IV hydration.; Na at discharge was 135. Patient's diarrhea resolved over the course of the stay in the hospital. He is creatinine trended down to 1.88; his baseline is around 1.6. Patient was discharged home with instruction to hold off on metformin, losartan Jardiance and spironolactone till he sees his PCP and repeat his BMP. Patient has appointment on 02/03 to see his PCP. Total Time Total Time Spent Total Time Spent (In Minutes): 35 Total Time Includes: Examination of the Patient, Discharge Planning, Medication Reconciliation, Communication With Other Providers and Other Discharge Plan Discharge Items Patient Disposition: Home - Self-Care Reason For Visit: HYPONATREMIA, ARF Discharge Diagnosis: Gastroenteritis VASILE on CKD, likely prerenal secondary to gastroenteritis Hyponatremia likely hypovolemic Non-anion gap metabolic acidosis secondary to diarrhea and VASILE Activity: Resume your previous activity Non-emergency contact: Primary Care Provider Call non-emergency contact if: you have any medication questions and your symptoms worsen Follow-up/Referrals: Timmy Chavez MD [Primary Care Provider] - (Date & Time 02/03/2022 11:00 AM Provider RINKU [facility] Department [facility] ) Diet: Carb Consistent or DM2 Addtl Attending Provider Instructions: You were admitted here and treated for viral gastroenteritis, acute kidney injury and low sodium. Please hold taking following medication till you see your primary care doctor and have labs drawn. 1) Metformin 2) losartan 3) Jardiance 4) Spironolactone Nephrology has recommended to reintroduce Jardiance/spironolactone one by one weekly after renal function is back to normal. Continue to take other medications as prescribed. Check your blood pressure daily. Follow-up with nephrology as needed. Pending Studies at Discharge: No Stand-Alone Forms: My [facility], Smoking Cessation Medications and DC Order Prescriptions: Continued metformin 500 mg tablet 500 mg PO BID Rx Instructions: 2 tabs in AM, 1 tab in PM carvedilol 25 mg tablet 37.5 mg PO BID fenofibrate micronized 67 mg capsule 67 mg PO DAILY terazosin 1 mg capsule 2 mg PO HS spironolactone 25 mg tablet 25 mg PO DAILY levothyroxine 100 mcg tablet 100 mcg PO DAILY omeprazole 20 mg capsule,delayed release(DR/EC) 20 mg PO DAILY losartan 100 mg tablet 100 mg PO DAILY rosuvastatin 5 mg tablet 5 mg PO DAILY testosterone 20.25 mg/1.25 gram (1.62 %) gel in metered-dose pump 20.25 mg transdermal DAILY Jardiance 25 mg tablet 25 mg PO DAILY Trulicity 4.5 mg/0.5 mL pen injector 4.5 mg SUBCUT WK albuterol sulfate 2 puff inhalation QID PRN (Reason: Congestion) amlodipine 10 mg PO DAILY cetirizine [Zyrtec] 10 mg Tablet 10 mg PO HS aspirin 81 mg PO DAILY Vitamin B-12 1,000 mcg PO DAILY Discharge Orders: Discharge Order (Routine); Ordered 01/28/22 Ordered By: Shailesh White Admission Data Admit Date/Time: 01/27/22 00:55 Attending Provider: Shailesh White Admit Provider: Dale Sosa Primary Care Provider: Timmy Chavez Other Providers: Dale Sosa ; Nohemi Loredo Other Interventions: Discharge Summary Assessment (RN) Last Done: 01/28/22 10:50
== END 2022-01-28 11:48 | disposition home or self-care (01) ==
LOC: ED 21:33 → INTOOBSV 01-27 00:55 → 2N 01-27 00:55

== ENCOUNTER 2023-09-06 21:20 | Inpatient (IN) ==
[2023-09-06 21:49] LABS: Basophils % (auto) 0.6 %; Eosinophils # (auto) 0.49 K/uL (0.00-0.50); Eosinophils % (auto) 2.7 %; Hematocrit (blood only) 42.2 % (42.0-52.0); Hemoglobin 13.8 g/dl (14.0-18.0); Immature Granulocytes # (auto) 0.12 K/uL (0.01-0.20); Immature Granulocytes % (auto) 0.7 %; Lymphocytes # (auto) 2.34 K/uL (1.20-3.40); Lymphocytes % (auto) 12.9 %; Mean Corpuscular Hemoglobin 28.8 pg (25.0-34.0); Mean Corpuscular Hgb Conc 32.7 g/dL (32.0-36.0); Mean Corpuscular Volume 87.9 fL (80.0-100.0); Mean Platelet Volume 10.5 fL (9.4-12.4); Monocytes # (auto) 1.19 K/uL (0.11-0.59); Monocytes % (auto) 6.6 %; Neutrophils % (auto) 76.5 %; Platelet Count 415 K/uL (130-400); RDW Coefficient of Variation 12.8 % (11.5-14.5); RDW Standard Deviation 41.1 fL (36.4-46.3); White Blood Count 18.14 K/ul (4.8-10.8)
[2023-09-06 22:08] LABS: Albumin Globulin Ratio 1.5 (0.9-2); Albumin Level 5.2 gm/dl (3.4-5.0); BUN Creatinine Ratio 21.4 (10-20); Bilirubin,Total 1.3 mg/dl (0.2-1.0); Calcium 9.7 mg/dl (8.6-10.3); Creatinine Clr Calc Pharmacy 32.5 ml/min; Est GFR (African American) 33.8 ml/min; Est GFR (Non-African American) 29.1 ml/min; Globulin 3.5 gm/dl (2.5-4.0); Potassium 4.5 mmol/L (3.5-5.1); Total Protein 8.7 gm/dl (6.0-8.3)
[2023-09-06 22:32] LABS: Adenovirus PCR Not Detected (NotDetected); Bordetella parapertussis PCR Not Detected (NotDetected); Bordetella pertussis PCR Not Detected (NotDetected); Chlamydia pneumoniae PCR Not Detected (NotDetected); Coronavirus 229E PCR Not Detected (NotDetected); Coronavirus CoV-2 (COVID19)PCR Not Detected (NotDetected); Coronavirus HKU1 PCR Not Detected (NotDetected); Coronavirus NL63 PCR Not Detected (NotDetected); Coronavirus OC43PCR Not Detected (NotDetected); Human Metapneumovirus PCR Not Detected (NotDetected); Influenza A PCR Not Detected (NotDetected); Influenza B PCR Not Detected (NotDetected); Mycoplasma pneumoniae PCR Not Detected (NotDetected); Parainfluenza Virus 1 PCR Not Detected (NotDetected); Parainfluenza Virus 2 PCR Not Detected (NotDetected); Parainfluenza Virus 3 PCR Not Detected (NotDetected); Parainfluenza Virus 4 PCR Not Detected (NotDetected); Respiratory Syncytial VirusPCR Not Detected (NotDetected); Rhinovirus/Enterovirus PCR Not Detected (NotDetected)
[2023-09-07] MEDS: SODIUM CHLORIDE 0.9% 250 ML IV ONE (01:23)
[2023-09-07] MEDS: SODIUM CHLORIDE 0.9% 1,000 ML IV SCH (01:46)
--- NOTE | 2023-09-07 01:51 | Emergency Department Note ---
Impression & Plan Acute hyponatremia, Acute dehydration, Nausea, vomiting, and diarrhea ED Provider Note NAME: ASHLEY DU Sr AGE: 58 SEX: Male INFORMANT: Patient ED PROVIDER(S): Placido Rodriguez MD CHIEF COMPLAINT: Vomiting and diarrhea PLAN: Disposition: Admitted Outpatient prescription management: none Referral: None MEDICAL DECISION MAKING: Patient presented to the emergency department because of vomiting and diarrhea. He felt dehydrated. Blood work was consistent with acute dehydration with an elevated creatinine from baseline consistent with VASILE. Patient also had hyponatremia with a sodium of 124. Mild leukocytosis was also noted. Patient's bili was minimally elevated but rest of LFTs were unremarkable. Respiratory bio fire was negative. Stool bio fire testing was ordered as well as C. difficile. Patient had an unremarkable ECG. Patient was gently hydrated with saline because of the hyponatremia. Patient will need admitted to the hospital. Consultation was placed with Dr. Dale Sosa, [facility] hospitalist service. Patient was seen in the ER and admitted for further treatment. 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 Triage Nursing notes: reviewed and agree them. Vital Signs: reviewed and remarkable for no significant abnormalities Additional History obtained from: none Chronic Medical/Social Conditions affecting care: CKD Prior/ Outside/ External records reviewed: none Differential Diagnosis: Etiologies such as dehydration, gastroenteritis, food borne illness, infections, appendicitis, diverticulitis, inflammatory bowel disease, GI bleed, biliary pathology, as well as others were entertained. Diagnostics, independently interpreted by me: EC Lead ECG performed and revealed Normal sinus rhythm at 80, normal [place], QRS normal. No elevation or depression. No PACs or PVCs Cardiac Monitoring: Cardiac monitoring ordered by me: The patient was placed on continuous cardiac monitoring and observed. It revealed a normal sinus rhythm at 72 beats per minute without ectopy or evidence of dysrhythmia. Medical decision rules: none Imaging studies: Deferred. HPI: 58 year old Male arrives for evaluation of vomiting and diarrhea. This started a few days ago and is persisting but mostly diarrhea at this point. The patient also notes the following associated symptoms, feeling dehydrated. The patient has found no relieving factors. Current pain is rated as 0/10. Patient notes a similar episode last year that caused dehydration and hospital admission. He was concerned for the same. Patient notes no formal etiology was found at that time. Pt denies LOC, headache, fevers, chills, diaphoresis, visual changes, neck pain, chest pain, breathing difficulties, abdominal pain, back pain, melena, hematochezia, urinary symptoms, numbness, weakness, lymphadenopathy, rash, or other complaints.. PAST MEDICAL HISTORY: See Below, CKD PAST SURGICAL HISTORY: See Below, SOCIAL HISTORY: See Below, non-smoker HOME MEDICATIONS: See Below ALLERGIES: See Below VITALS: See Below PHYSICAL EXAMINATION: GENERAL: Awake, tired-appearing, in no distress HENT: Normocephalic, atraumatic. Oropharynx unremarkable except for mildly dry mucous membranes. EYES: Normal conjunctiva. Sclera non-icteric. NECK: Inspection normal. Non-tender. Supple. No nuchal rigidity. FROM. No masses. RESPIRATORY: Clear to auscultation. No wheezes. No rales. Normal respiratory effort. CARDIAC: Normal rate. Normal rhythm. No murmurs. No rubs. Extremities warm and well perfused. Pulses equal. No JVD. GI: Soft, non-distended. No tenderness to palpation. No rebound or guarding. No masses. RECTAL: Deferred. MUSCULOSKELETAL: Atraumatic. Chest examination reveals no tenderness. The back is symmetrical on inspection without obvious abnormality. There is no CVA tenderness to palpation. No joint edema. LOWER EXTREMITIES: Calves are equal size bilaterally and non-tender. No edema. No discoloration. NEURO: Normal sensorium. No sensory or motor deficits noted. SKIN: No rash or jaundice noted. PROCEDURES: none CRITICAL CARE: none OBSERVATION NOTE: none Past Med/Surg History Medical History (Updated 09/07/23 @ 14:11 by Nohemi Loredo MD, PhD) Hyponatremia Acute on chronic renal failure HTN (hypertension) EDA (obstructive sleep apnea) CAD (coronary artery disease) CKD (chronic kidney disease) stage 3, GFR 30-59 ml/min Panhypopituitarism Type 2 diabetes mellitus Gastroenteritis Dehydration VASILE (acute kidney injury) Family History Father Hypertension Mother Diabetes Social History Smoking Status: Never smoker Hx Alcohol Use: No Hx Substance Use: No Preferred Language: Afghan Communication Ability: Effective 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 Beliefs That Will Affect Care: None Current Living Situation: Spouse Other Information That Helps Us Care for You: No Feels Safe at Home: Yes Safety Concerns: Feels Safe At This Time Assistive Devices: None Allergies Allergies Allergy/AdvReac Type Severity Reaction Status Date / Time lisinopril Allergy Intermediate Swelling Verified 09/07/23 02:40 of Lip/Tongue/Throat Home Meds Home Medications Medication Instructions Recorded Confirmed carvedilol 25 mg tablet 37.5 mg PO BIDM 01/27/22 09/07/23 cetirizine 10 mg tablet (Zyrtec) 10 mg PO HS 01/27/22 09/07/23 dulaglutide 4.5 mg/0.5 mL 4.5 mg subcut WK 01/27/22 09/07/23 subcutaneous pen injector (Trulicity) empagliflozin 25 mg tablet 25 mg PO DAILY 01/27/22 09/07/23 (Jardiance) fenofibrate micronized 67 mg 67 mg PO DAILYBB 01/27/22 09/07/23 capsule levothyroxine 100 mcg tablet 100 mcg PO DAILYBB 01/27/22 09/07/23 metformin 500 mg tablet 500 mg PO BIDM 01/27/22 09/07/23 omeprazole 20 mg capsule,delayed 20 mg PO DAILY 01/27/22 09/07/23 release rosuvastatin 5 mg tablet 5 mg PO DAILY 01/27/22 09/07/23 spironolactone 25 mg tablet 25 mg PO QAM 01/27/22 09/07/23 terazosin 1 mg capsule 2 mg PO HS 01/27/22 09/07/23 testosterone 20.25 mg transdermal QAM 01/27/22 09/07/23 albuterol sulfate 90 mcg/actuation 2 puff inhalation QID PRN 09/07/23 09/07/23 aerosol inhaler Shortness Of Breath Or Wheezing amlodipine 10 mg tablet 10 mg PO QAM 09/07/23 09/07/23 aspirin 81 mg tablet,delayed 81 mg PO QAM 09/07/23 09/07/23 release cholecalciferol (vitamin D3) 50 2,000 unit PO DAILY 09/07/23 09/07/23 mcg (2,000 unit) tablet cyanocobalamin (vitamin B-12) 1,000 mcg PO DAILY 09/07/23 09/07/23 1,000 mcg tablet fluticasone propionate 50 1 spray intranasal BID PRN 09/07/23 09/07/23 mcg/actuation nasal Congestion spray,suspension Results & Data (ED) Vital Signs Vital Signs - 24 hr 09/06/23 21:26 09/07/23 00:24 Temperature 36.9 C Temperature Source Temporal Artery Scan Pulse Rate 81 72 Respiratory Rate 16 Respiratory Effort / Characteristics Non-Labored Spontaneous Respiratory Depth Normal Blood Pressure 130/84 Blood Pressure Mean 99 Pulse Oximetry 100 Oxygen Delivery Method Room Air Sepsis Recent Fever Within 48 Hours No Sepsis New/Unexplained Change in Mental Status N/A Sepsis Action Taken by Nursing No Action Required Laboratory Data 09/08/23 04:08 09/08/23 04:08 Lab Results 09/06/23 09/06/23 09/07/23 Range/Units 21:28 21:36 02:34 WBC 18.14 H (4.8-10.8) K/ul RBC 4.80 (4.70-6.10) M/uL Hgb 13.8 L (14.0-18.0) g/dl Hct 42.2 (42.0-52.0) % MCV 87.9 (80.0-100.0) fL MCH 28.8 (25.0-34.0) pg MCHC 32.7 (32.0-36.0) g/dL RDW Std Deviation 41.1 (36.4-46.3) fL RDW Coeff of [place] 12.8 (11.5-14.5) % Plt Count 415 H (130-400) K/uL MPV 10.5 (9.4-12.4) fL Immature Gran % (Auto) 0.7 % Neut % (Auto) 76.5 % Lymph % (Auto) 12.9 % [place] % (Auto) 6.6 % Eos % (Auto) 2.7 % Baso % (Auto) 0.6 % Neut # (Auto) 13.90 H (1.40-6.50) K/uL Lymph # (Auto) 2.34 (1.20-3.40) K/uL [place] # (Auto) 1.19 H (0.11-0.59) K/uL Eos # (Auto) 0.49 (0.00-0.50) K/uL Baso # (Auto) 0.10 (0.00-0.20) K/uL Immature Gran # (Auto) 0.12 (0.01-0.20) K/uL Sodium 124 L (136-145) mmol/L Potassium 4.5 (3.5-5.1) mmol/L Chloride 96 L (98-107) mmol/L Carbon Dioxide 19 L (21-32) mmol/L Anion Gap 9 (3-11) BUN 50 H (6-23) mg/dl Creatinine 2.34 H (0.6-1.4) mg/dl Est Cr Clr Drug Dosing 32.5 ml/min Est GFR ( Amer) 33.8 ml/min Est GFR (Non-Af Amer) 29.1 ml/min BUN/Creatinine Ratio 21.4 H (10-20) Glucose 156 H (70-99(Fasting)) mg/dl Calcium 9.7 (8.6-10.3) mg/dl Magnesium (1.7-2.4) mg/dl Total Bilirubin 1.3 H (0.2-1.0) mg/dl AST 20 (13-39) U/L ALT 18 (7-52) U/L Alkaline Phosphatase 56 (34-104) U/L Total Protein 8.7 H (6.0-8.3) gm/dl Albumin 5.2 H (3.4-5.0) gm/dl Globulin 3.5 (2.5-4.0) gm/dl Albumin/Globulin Ratio 1.5 (0.9-2) TSH (0.300-4.500) uIu/ml Urine Color Yellow Urine Appearance Clear (Clear) Urine pH 5.0 (4.5-7.5) Ur Specific [place] 1.008 (1.000-1.030) Urine Protein Negative (Negative) Urine Glucose (UA) 1+ H (Negative) Urine Ketones Negative (Negative) Urine Blood Negative (Negative) Urine Nitrite Negative (Negative) Urine Bilirubin Negative (Negative) Urine Urobilinogen Negative (Negative) Ur Leukocyte Esterase Negative (Negative) Urine Osmolality 235 L (500-800) mOsm/kg Ur Random Sodium 10 mmol/L Stl C. cayetanensis PCR Not Detected (NotDetected) Stool Rotavirus A PCR Not Detected (NotDetected) Stl Adenov F 40/41 PCR Not Detected (NotDetected) Stool Astrovirus (PCR) Not Detected (NotDetected) Stool Campylobacter PCR Not Detected (NotDetected) Stl C. diff Tox B Gene Negative Cdiff Gene (Neg) Stool Cryptosporidium PCR Not Detected (NotDetected) Stl E.coli Shiga Tox PCR Not Detected (NotDetected) Stl Enterotoxigenic E PCR Not Detected (NotDetected) Stool EPEC (PCR) Not Detected (NotDetected) Stool EAEC (PCR) Not Detected (NotDetected) Stl E. histolytica PCR Not Detected (NotDetected) Stool Giardia Lamblia PCR Not Detected (NotDetected) Stool Salmonella PCR Not Detected (NotDetected) Stool Sapovirus (PCR) Not Detected (NotDetected) Stl P. shigelloides PCR Not Detected (NotDetected) Stl Shigella/EIEC PCR Not Detected (NotDetected) St Y.enterocolitica PCR Not Detected (NotDetected) Stool Vibrio (PCR) Not Detected (NotDetected) Stl Vibrio cholerae PCR Not Detected (NotDetected) Stl Norovirus GI/GII PCR Not Detected (NotDetected) Adenovirus (PCR) Not Detected (NotDetected) B. pertussis DNA (PCR) Not Detected (NotDetected) B.parapertussis DNA PCR Not Detected (NotDetected) C. pneumoniae DNA (PCR) Not Detected (NotDetected) Coronavirus OC43 (PCR) Not Detected (NotDetected) Coronavirus HKU1 (PCR) Not Detected (NotDetected) Coronavirus 229E (PCR) Not Detected (NotDetected) SARS-CoV-2 (PCR) Not Detected (NotDetected) Coronavirus NL63 (PCR) Not Detected (NotDetected) Human Metapneumovir PCR Not Detected (NotDetected) Influenza Type A (PCR) Not Detected (NotDetected) Influenza Type B (PCR) Not Detected (NotDetected) M. pneumoniae (PCR) Not Detected (NotDetected) Parainfluenza 1 (PCR) Not Detected (NotDetected) Parainfluenza 2 (PCR) Not Detected (NotDetected) Parainfluenza 3 (PCR) Not Detected (NotDetected) Parainfluenza 4 (PCR) Not Detected (NotDetected) RSV (PCR) Not Detected (NotDetected) Entero/Rhino (PCR) Not Detected (NotDetected) 09/07/23 Range/Units 02:48 WBC (4.8-10.8) K/ul RBC (4.70-6.10) M/uL Hgb (14.0-18.0) g/dl Hct (42.0-52.0) % MCV (80.0-100.0) fL MCH (25.0-34.0) pg MCHC (32.0-36.0) g/dL RDW Std Deviation (36.4-46.3) fL RDW Coeff of [place]qu[place] (11.5-14.5) % Plt Count (130-400) K/uL MPV (9.4-12.4) fL Immature Gran % (Auto) % Neut % (Auto) % Lymph % (Auto) % [place] % (Auto) % Eos % (Auto) % Baso % (Auto) % Neut # (Auto) (1.40-6.50) K/uL Lymph # (Auto) (1.20-3.40) K/uL [place] # (Auto) (0.11-0.59) K/uL Eos # (Auto) (0.00-0.50) K/uL Baso # (Auto) (0.00-0.20) K/uL Immature Gran # (Auto) (0.01-0.20) K/uL Sodium 125 L (136-145) mmol/L Potassium 4.6 (3.5-5.1) mmol/L Chloride 101 (98-107) mmol/L Carbon Dioxide 17 L (21-32) mmol/L Anion Gap 7 (3-11) BUN 49 H (6-23) mg/dl Creatinine 2.04 H D (0.6-1.4) mg/dl Est Cr Clr Drug Dosing 37.3 ml/min Est GFR ( Amer) 39.9 ml/min Est GFR (Non-Af Amer) 34.4 ml/min BUN/Creatinine Ratio 24.0 H (10-20) Glucose 126 H (70-99(Fasting)) mg/dl Calcium 8.7 (8.6-10.3) mg/dl Magnesium 1.4 L (1.7-2.4) mg/dl Total Bilirubin (0.2-1.0) mg/dl AST (13-39) U/L ALT (7-52) U/L Alkaline Phosphatase (34-104) U/L Total Protein (6.0-8.3) gm/dl Albumin (3.4-5.0) gm/dl Globulin (2.5-4.0) gm/dl Albumin/Globulin Ratio (0.9-2) TSH 2.070 (0.300-4.500) uIu/ml Urine Color Urine Appearance (Clear) Urine pH (4.5-7.5) Ur Specific [place] (1.000-1.030) Urine Protein (Negative) Urine Glucose (UA) (Negative) Urine Ketones (Negative) Urine Blood (Negative) Urine Nitrite (Negative) Urine Bilirubin (Negative) Urine Urobilinogen (Negative) Ur Leukocyte Esterase (Negative) Urine Osmolality (500-800) mOsm/kg Ur Random Sodium mmol/L Stl C. cayetanensis PCR (NotDetected) Stool Rotavirus A PCR (NotDetected) Stl Adenov F 40/41 PCR (NotDetected) Stool Astrovirus (PCR) (NotDetected) Stool Campylobacter PCR (NotDetected) Stl C. diff Tox B Gene (Neg) Stool Cryptosporidium PCR (NotDetected) Stl E.coli Shiga Tox PCR (NotDetected) Stl Enterotoxigenic E PCR (NotDetected) Stool EPEC (PCR) (NotDetected) Stool EAEC (PCR) (NotDetected) Stl E. histolytica PCR (NotDetected) Stool Giardia Lamblia PCR (NotDetected) Stool Salmonella PCR (NotDetected) Stool Sapovirus (PCR) (NotDetected) Stl P. shigelloides PCR (NotDetected) Stl Shigella/EIEC PCR (NotDetected) St Y.enterocolitica PCR (NotDetected) Stool Vibrio (PCR) (NotDetected) Stl Vibrio cholerae PCR (NotDetected) Stl Norovirus GI/GII PCR (NotDetected) Adenovirus (PCR) (NotDetected) B. pertussis DNA (PCR) (NotDetected) B.parapertussis DNA PCR (NotDetected) C. pneumoniae DNA (PCR) (NotDetected) Coronavirus OC43 (PCR) (NotDetected) Coronavirus HKU1 (PCR) (NotDetected) Coronavirus 229E (PCR) (NotDetected) SARS-CoV-2 (PCR) (NotDetected) Coronavirus NL63 (PCR) (NotDetected) Human Metapneumovir PCR (NotDetected) Influenza Type A (PCR) (NotDetected) Influenza Type B (PCR) (NotDetected) M. pneumoniae (PCR) (NotDetected) Parainfluenza 1 (PCR) (NotDetected) Parainfluenza 2 (PCR) (NotDetected) Parainfluenza 3 (PCR) (NotDetected) Parainfluenza 4 (PCR) (NotDetected) RSV (PCR) (NotDetected) Entero/Rhino (PCR) (NotDetected) Administered Medications Discontinued Medications Amlodipine Besylate (Amlodipine Besylate 5 Mg Tab) 10 mg PO [facility] Stop: 10/07/23 08:59 Last Admin: 09/08/23 09:05 Dose: 10 mg Documented By: ZOYA Co-signed By: EBONY Admin: 09/07/23 08:23 Dose: 10 mg Documented By: ALISON Aspirin (Aspirin 81 Mg Ectab) [facility] [place] Stop: 10/07/23 08:59 Last Admin: 09/08/23 07:29 Dose: 81 mg Documented By: Admin: 09/07/23 08:23 Dose: 81 mg Documented By: ALISON Carvedilol (Carvedilol 12.5 Mg Tab) [facility] [place] Stop: 10/07/23 07:59 Last Admin: 09/08/23 07:28 Dose: 37.5 mg Documented By: Admin: 09/07/23 18:15 Dose: 37.5 mg Documented By: Admin: 09/07/23 08:21 Dose: 37.5 mg Documented By: ALISON Cetirizine HCl (Cetirizine Hcl 10 Mg Tablet) 10 mg PO HS [facility] Stop: 10/07/23 20:59 Last Admin: 09/07/23 20:33 Dose: 10 mg Documented By: MARU Cyanocobalamin (Cyanocobalamin (B-12) 500 Mcg Tablet) 1,000 mcg PO DAILY [facility] Stop: 10/07/23 08:59 Last Admin: 09/08/23 07:30 Dose: 1,000 mcg Documented By: Admin: 09/07/23 08:22 Dose: 1,000 mcg Documented By: ALISON Heparin Sodium (Porcine) (Heparin Sod 5,000 Unit/0.5 Ml Vial) 5,000 units SQ Q8 [facility] Stop: 10/07/23 05:59 Last Admin: 09/08/23 13:13 Dose: Not Given Documented By: Admin: 09/08/23 05:34 Dose: 5,000 units Documented By: Admin: 09/07/23 21:50 Dose: 5,000 units Documented By: Admin: 09/07/23 14:02 Dose: 5,000 units Documented By: Admin: 09/07/23 06:45 Dose: 5,000 units Documented By: JOSUE Sodium Chloride (Nss) 1,000 mls @ 125 mls/hr IV .Q8H [facility] Stop: 10/07/23 01:14 Last Infusion: 09/07/23 08:18 Dose: Infused Documented By: Infusion: 09/07/23 02:26 Dose: 0 mls/hr Documented By: Admin: 09/07/23 01:46 Dose: 125 mls/hr Documented By: JOSUE Sodium Chloride (Nss) 250 mls @ 999 mls/hr IV .Q16M ONE Stop: 09/07/23 01:29 Last Infusion: 09/07/23 01:44 Dose: Infused Documented By: Admin: 09/07/23 01:23 Dose: 999 mls/hr Documented By: JOSUE Magnesium Sulfate/Dextrose (Magnesium Sulfate / D5w) 1 gm in 100 mls @ 50 mls/hr IV Q2H [facility] Stop: 09/07/23 07:44 Last Infusion: 09/07/23 08:40 Dose: Infused Documented By: Admin: 09/07/23 06:27 Dose: 50 mls/hr Documented By: Infusion: 09/07/23 06:27 Dose: Infused Documented By: Admin: 09/07/23 04:41 Dose: 50 mls/hr Documented By: JOSUE Sodium Chloride (Nss) 1,000 mls @ 60 mls/hr IV .[id number] ONE Stop: 09/08/23 00:39 Last Infusion: 09/07/23 14:21 Dose: Infused Documented By: Admin: 09/07/23 08:18 Dose: 60 mls/hr Documented By: HUY Dextrose (D5w) 1,000 mls @ 150 mls/hr IV .[id number] STA Stop: 09/07/23 20:53 Last Infusion: 09/07/23 21:07 Dose: Infused Documented By: Admin: 09/07/23 14:41 Dose: 150 mls/hr Documented By: HUY Insulin Aspart (Insulin Aspart Per Unit Charge) 0 units SC ACHS [facility] Stop: 10/07/23 05:22 Last Admin: 09/08/23 13:21 Dose: 3 units Documented By: LENA Co-signed By: MOHAN Admin: 09/08/23 08:50 Dose: Not Given Documented By: Admin: 09/07/23 21:26 Dose: Not Given Documented By: Admin: 09/07/23 18:25 Dose: Not Given Documented By: Admin: 09/07/23 12:46 Dose: Not Given Documented By: Admin: 09/07/23 06:00 Dose: Not Given Documented By: JOSUE Co-signed By: LISSETTE Pantoprazole Sodium (Pantoprazole 40 Mg Tab) 40 mg PO DAILY [facility] Stop: 10/07/23 08:59 Last Admin: 09/08/23 07:29 Dose: 40 mg Documented By: Admin: 09/07/23 08:22 Dose: 40 mg Documented By: ALISON Rosuvastatin Calcium (Rosuvastatin Calcium 5 Mg Tab) 5 mg PO DAILY [facility] Stop: 10/07/23 08:59 Last Admin: 09/08/23 09:07 Dose: 5 mg Documented By: ZOYA Co-signed By: EBONY Admin: 09/07/23 08:21 Dose: 5 mg Documented By: ALISON Terazosin HCl (Terazosin Hcl 1 Mg Cap) 2 mg PO HS [facility] Stop: 10/07/23 20:59 Last Admin: 09/07/23 21:50 Dose: 2 mg Documented By: TANYA Discharge Plan Visit Data Chief Complaint: Illness Stated Complaint: VOMITING, DIARREAH, DEHYDRATION, KIDNEY CHECK/PROB ED Provider: Placido Rodriguez Discharge Problem: Acute hyponatremia, Acute dehydration, Nausea, vomiting, and diarrhea Patient Disposition: Admitted As Inpatient Discharge Instructions Interventions: ED Discharge Assessment Last Done: 09/07/23 05:24
[2023-09-07 02:48] LABS: Appearance Urine Clear (Clear); Bilirubin Urine Negative (Negative); Blood Urine Negative (Negative); Color Urine Yellow; Glucose Urine UA 1+ (Negative); Ketones Urine Negative (Negative); Leukocyte Esterase Urine Negative (Negative); Nitrite Urine Negative (Negative); Protein Urine Negative (Negative); Specific Gravity Urine 1.008 (1.000-1.030); Urobilinogen Urine Negative (Negative)
[2023-09-07 03:15] LABS: Calcium 8.7 mg/dl (8.6-10.3); Creatinine Clr Calc Pharmacy 37.3 ml/min; Est GFR (African American) 39.9 ml/min; Est GFR (Non-African American) 34.4 ml/min; Magnesium 1.4 mg/dl (1.7-2.4); Potassium 4.6 mmol/L (3.5-5.1)
--- NOTE | 2023-09-07 03:42 | History & Physical Report ---
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 Heparin subcu Full code Text document was generated using [employer] voice recognition software. It may contain grammatical or spelling errors. Kindly contact undersigned for clarification of any documentation item in question. History of Present Illness Chief Complaint: Vomiting, diarrhea Primary Care Provider: Timmy Chavez MD History obtained from patient and records. 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 Last confinement 2021 for ARF on CKD, hypovolemic hyponatremia secondary to gastroenteritis. Few days history of nausea, vomiting, watery diarrhea symptoms without abdominal pain symptoms. No chest pain or shortness of breath. No fever, some chills. Recent food consumption at a [employer] restaurant in [place], [place]. No other family members were sick. No recent antibiotic Rx. Patient consulted ER for worsening symptoms. 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 Allergies Allergy/AdvReac Type Severity Reaction Status Date / Time lisinopril Allergy Intermediate Swelling Verified 09/07/23 02:40 of Lip/Tongue/Throat Home Medications Medication Instructions Recorded Confirmed Type carvedilol 25 mg tablet 37.5 mg PO BIDM 01/27/22 09/07/23 History cetirizine 10 mg tablet (Zyrtec) 10 mg PO HS 01/27/22 09/07/23 History dulaglutide 4.5 mg/0.5 mL 4.5 mg subcut WK 01/27/22 09/07/23 History subcutaneous pen injector (Trulicity) empagliflozin 25 mg tablet 25 mg PO DAILY 01/27/22 09/07/23 History (Jardiance) fenofibrate micronized 67 mg 67 mg PO DAILYBB 01/27/22 09/07/23 History capsule levothyroxine 100 mcg tablet 100 mcg PO DAILYBB 01/27/22 09/07/23 History metformin 500 mg tablet 500 mg PO BIDM 01/27/22 09/07/23 History omeprazole 20 mg capsule,delayed 20 mg PO DAILY 01/27/22 09/07/23 History release rosuvastatin 5 mg tablet 5 mg PO DAILY 01/27/22 09/07/23 History spironolactone 25 mg tablet 25 mg PO QAM 01/27/22 09/07/23 History terazosin 1 mg capsule 2 mg PO HS 01/27/22 09/07/23 History testosterone 20.25 mg transdermal QAM 01/27/22 09/07/23 History albuterol sulfate 90 mcg/actuation 2 puff inhalation QID PRN 09/07/23 09/07/23 H istory aerosol inhaler Shortness Of Breath Or Wheezing amlodipine 10 mg tablet 10 mg PO QAM 09/07/23 09/07/23 History aspirin 81 mg tablet,delayed 81 mg PO QAM 09/07/23 09/07/23 History release cholecalciferol (vitamin D3) 50 2,000 unit PO DAILY 09/07/23 09/07/23 History mcg (2,000 unit) tablet cyanocobalamin (vitamin B-12) 1,000 mcg PO DAILY 09/07/23 09/07/23 History 1,000 mcg tablet fluticasone propionate 50 1 spray intranasal BID PRN 09/07/23 09/07/23 History mcg/actuation nasal Congestion spray,suspension Past Med/Surg History Medical History CAD (coronary artery disease) CKD (chronic kidney disease) stage 3, GFR 30-59 ml/min HTN (hypertension) EDA (obstructive sleep apnea) Panhypopituitarism Type 2 diabetes mellitus Family History Father Hypertension Mother Diabetes Social History Smoking Status: Never smoker Hx Alcohol Use: No Hx Substance Use: No Preferred Language: [place] Communication Ability: Effective Tax Technician Required: No Beliefs That Will Affect Care: None Current Living Situation: Spouse Other Information That Helps Us Care for You: No Feels Safe at Home: Yes Safety Concerns: Feels Safe At This Time Assistive Devices: None Review of Systems Review of Systems: As per HPI, all other systems reviewed and negative Physical Exam Physical Exam: GENERAL: Comfortable, pleasant, no respiratory distress SKIN: Pallor, warm HEENT: Bespectacled, pale palpebral conjunctivae, no ptosis, dry buccal mucosa NECK : Supple, no tenderness CHEST : CTA, no tenderness HEART : RRR, no obvious murmurs ABDOMEN: Some distention, nontender EXTREMITIES : No LE swelling/tenderness, no other conspicuous deformities noted NEUROLOGIC : Coherent, no facial asymmetry, no other gross focality Results & Data Results & Data Vital Signs (Past 12 Hours) Vital Signs Temp Pulse Resp BP Pulse Ox O2 Del Method 09/07/23 03:00 135/73 09/07/23 02:00 76 14 132/66 97 09/07/23 01:00 68 15 130/78 97 09/07/23 00:24 72 09/06/23 21:26 36.9 C 81 16 130/84 100 Room Air Laboratory Results Laboratory Results WBC 18.14 K/ul (4.8-10.8) H 09/06/23 21:28 RBC 4.80 M/uL (4.70-6.10) 09/06/23 21:28 Hgb 13.8 g/dl (14.0-18.0) L 09/06/23 21:28 Hct 42.2 % (42.0-52.0) 09/06/23 21:28 MCV 87.9 fL (80.0-100.0) 09/06/23 21:28 MCH 28.8 pg (25.0-34.0) 09/06/23 21: MCHC 32.7 g/dL (32.0-36.0) 09/06/23: RDW Std Deviation 41.1 fL (36.4-46.3) 09/06/23: RDW Coeff of [place] 12.8 % (11.5-14.5) 09/06/23 21: Plt Count 415 K/uL (130-400) H 09/06/23 21: MPV 10.5 fL (9.4-12.4) 09/06/23 21: Immature Gran % (Auto) 0.7 % 09/06/23 21: Neut % (Auto) 76.5 % 09/06/23: Lymph % (Auto) 12.9 % 09/06/23: [place] % (Auto) 6.6 % 09/06/23: Eos % (Auto) 2.7 % 09/06/23: Baso % (Auto) 0.6 % 09/06/23 21: Neut # (Auto) 13.90 K/uL (1.40-6.50) H 09/06/23 21: Lymph # (Auto) 2.34 K/uL (1.20-3.40) 09/06/23: [place] # (Auto) 1.19 K/uL (0.11-0.59) H 09/06/23 21: Eos # (Auto) 0.49 K/uL (0.00-0.50) 09/06/23 21: Baso # (Auto) 0.10 K/uL (0.00-0.20) 09/06/23 21: Immature Gran # (Auto) 0.12 K/uL (0.01-0.20) 09/06/23 21: Sodium 125 mmol/L (136-145) L 09/07/23 02:48 Potassium 4.6 mmol/L (3.5-5.1) 09/07/23 02:48 Chloride 101 mmol/L (98-107) 09/07/23 02:48 Carbon Dioxide 17 mmol/L (21-32) L 09/07/23 02:48 Anion Gap 7 (3-11) 09/07/23 02:48 BUN 49 mg/dl (6-23) H 09/07/23 02:48 Creatinine 2.04 mg/dl (0.6-1.4) H D 09/07/23 02:48 Est Cr Clr Drug Dosing 37.3 ml/min 09/07/23 02:48 Est GFR ( Amer) 39.9 ml/min 09/07/23 02:48 Est GFR (Non-Af Amer) 34.4 ml/min 09/07/23 02:48 BUN/Creatinine Ratio 24.0 (10-20) H 09/07/23 02:48 Glucose 126 mg/dl (70-99(Fasting)) H 09/07/23 02:48 Osmolality 284 mOsm/kg (280-300) 09/07/23 Unknown Calcium 8.7 mg/dl (8.6-10.3) 09/07/23 02:48 Magnesium 1.4 mg/dl (1.7-2.4) L 09/07/23 02:48 Total Bilirubin 1.3 mg/dl (0.2-1.0) H 09/06/23 21:28 AST 20 U/L (13-39) 09/06/23 21:28 ALT 18 U/L (7-52) 09/06/23 21:28 Alkaline Phosphatase 56 U/L (34-104) 09/06/23 21:28 Total Protein 8.7 gm/dl (6.0-8.3) H 09/06/23 21:28 Albumin 5.2 gm/dl (3.4-5.0) H 09/06/23 21:28 Globulin 3.5 gm/dl (2.5-4.0) 09/06/23 21:28 Albumin/Globulin Ratio 1.5 (0.9-2) 09/06/23 21:28 Urine Color Yellow 09/07/23 02:34 Urine Appearance Clear (Clear) 09/07/23 02:34 Urine pH 5.0 (4.5-7.5) 09/07/23 02:34 Ur Specific [place] 1.008 (1.000-1.030) 09/07/23 02:34 Urine Protein Negative (Negative) 09/07/23 02:34 Urine Glucose (UA) 1+ (Negative) H 09/07/23 02:34 Urine Ketones Negative (Negative) 09/07/23 02:34 Urine Blood Negative (Negative) 09/07/23 02:34 Urine Nitrite Negative (Negative) 09/07/23 02:34 Urine Bilirubin Negative (Negative) 09/07/23 02:34 Urine Urobilinogen Negative (Negative) 09/07/23 02:34 Ur Leukocyte Esterase Negative (Negative) 09/07/23 02:34 Ur Random Sodium 10 mmol/L 09/07/23 02:34 Stl C. diff Tox B Gene Negative Cdiff Gene (Neg) 09/07/23 02:34 Adenovirus (PCR) Not Detected (NotDetected) 09/06/23 21:36 B. pertussis DNA (PCR) Not Detected (NotDetected) 09/06/23 21:36 B.parapertussis DNA PCR Not Detected (NotDetected) 09/06/23 21:36 C. pneumoniae DNA (PCR) Not Detected (NotDetected) 09/06/23 21:36 Coronavirus OC43 (PCR) Not Detected (NotDetected) 09/06/23 21:36 Coronavirus HKU1 (PCR) Not Detected (NotDetected) 09/06/23 21:36 Coronavirus 229E (PCR) Not Detected (NotDetected) 09/06/23 21:36 SARS-CoV-2 (PCR) Not Detected (NotDetected) 09/06/23 21:36 Coronavirus NL63 (PCR) Not Detected (NotDetected) 09/06/23 21:36 Human Metapneumovir PCR Not Detected (NotDetected) 09/06/23 21:36 Influenza Type A (PCR) Not Detected (NotDetected) 09/06/23 21:36 Influenza Type B (PCR) Not Detected (NotDetected) 09/06/23 21:36 M. pneumoniae (PCR) Not Detected (NotDetected) 09/06/23 21:36 Parainfluenza 1 (PCR) Not Detected (NotDetected) 09/06/23 21:36 Parainfluenza 2 (PCR) Not Detected (NotDetected) 09/06/23 21:36 Parainfluenza 3 (PCR) Not Detected (NotDetected) 09/06/23 21:36 Parainfluenza 4 (PCR) Not Detected (NotDetected) 09/06/23 21:36 RSV (PCR) Not Detected (NotDetected) 09/06/23 21:36 Entero/Rhino (PCR) Not Detected (NotDetected) 09/06/23 21:36 Diagnostic Findings Chest x-ray as per my interpretation : No congestion
[2023-09-07] MEDS ORDERED: PROMETHAZINE HCL 6.25 MG in SODIUM CHLORIDE 0.9% 50 ML IV PRN (03:46)
[2023-09-07] MEDS ORDERED: ACETAMINOPHEN 325 MG TAB PO PRN (03:47)
[2023-09-07] MEDS ORDERED: oxyCODONE HCL IR 5 MG TAB (IMMEDIATE RELEASE) PO PRN (03:47)
[2023-09-07 04:09] LABS: Thyroid Stimulating Hormone 2.07 uIu/ml (0.300-4.500)
[2023-09-07 04:13] LABS: Adenovirus F 40/41 PCR Not Detected (NotDetected); Astrovirus PCR Not Detected (NotDetected); Campylobacter PCR Not Detected (NotDetected); Cryptosporidium PCR Not Detected (NotDetected); Cyclospora cayetanensis PCR Not Detected (NotDetected); Entamoeba histolytica PCR Not Detected (NotDetected); Enteroaggregative E.coli(EAEC) Not Detected (NotDetected); Enteropathogenic E.coli (EPEC) Not Detected (NotDetected); Enterotoxigenic E.coli (ETEC) Not Detected (NotDetected); Giardia lamblia PCR Not Detected (NotDetected); Norovirus GI/GII PCR Not Detected (NotDetected); Plesiomonas shigelloides PCR Not Detected (NotDetected); Rotavirus A PCR Not Detected (NotDetected); Salmonella PCR Not Detected (NotDetected); Sapovirus PCR Not Detected (NotDetected); Shiga-like Toxin E.coli (STEC) Not Detected (NotDetected); Shigella/Enteroinvasive E.coli Not Detected (NotDetected); Vibrio cholerae PCR Not Detected (NotDetected); Vibrio species PCR Not Detected (NotDetected); Yersinia enterocolitica PCR Not Detected (NotDetected)
[2023-09-07] MEDS: MAGNESIUM SULFATE / D5W 1 GM/100 ML BAG IV SCH (04:41)
[2023-09-07] MEDS ORDERED: GLUCAGON FOR INJ 1 MG VIAL SQ PRN (05:23)
[2023-09-07] MEDS ORDERED: DEXTROSE 50% 50 ML SYRINGE IV PRN (05:23)
[2023-09-07] MEDS ORDERED: GLUCOSE 40% GEL 15 GM TUBE PO PRN (05:23)
[2023-09-07] MEDS ORDERED: CARBOHYDRATES FOR HYPOGLYCEMIA PO PRN (05:23)
[2023-09-07] MEDS ORDERED: GLUCOSE 10 TAB/TUBE PO PRN (05:23)
[2023-09-07] MEDS: INSULIN ASPART PER UNIT CHARGE SC SCH (06:00)
[2023-09-07] MEDS: HEPARIN SOD 5,000 UNIT/0.5 ML VIAL SQ SCH (06:45)
--- NOTE | 2023-09-07 06:52 | XRay Report ---
XR chest 1V portable HISTORY: 58 years-old Male hyponatremia COMPARISON: 01/27/2022 TECHNIQUE: AP view of the chest FINDINGS: Cardiomediastinal and hilar silhouettes are within normal limits. No pneumothorax, pleural effusion, airspace consolidation or pulmonary edema. The bones of the chest appear grossly intact. IMPRESSION: No acute process. ACT 112: Negative or not required by law. The above report was generated using voice recognition software. It may contain grammatical, syntax o r spelling errors. Electronically signed by: Sagar Babb M.D. 09/07/2023 6:50 AM
[2023-09-07 07:03] LABS: Basophils # (auto) 0.05 K/uL (0.00-0.20); Basophils % (auto) 0.4 %; Eosinophils # (auto) 0.46 K/uL (0.00-0.50); Eosinophils % (auto) 3.5 %; Hematocrit (blood only) 33.7 % (42.0-52.0); Hemoglobin 11.5 g/dl (14.0-18.0); Immature Granulocytes # (auto) 0.06 K/uL (0.01-0.20); Immature Granulocytes % (auto) 0.5 %; Lymphocytes # (auto) 1.81 K/uL (1.20-3.40); Lymphocytes % (auto) 13.6 %; Mean Corpuscular Hgb Conc 34.1 g/dL (32.0-36.0); Mean Corpuscular Volume 84.9 fL (80.0-100.0); Mean Platelet Volume 10.3 fL (9.4-12.4); Monocytes # (auto) 0.96 K/uL (0.11-0.59); Monocytes % (auto) 7.2 %; Neutrophils # (auto) 9.93 K/uL (1.40-6.50); Neutrophils % (auto) 74.8 %; Platelet Count 357 K/uL (130-400); RDW Coefficient of Variation 12.7 % (11.5-14.5); RDW Standard Deviation 39.1 fL (36.4-46.3); Red Blood Count 3.97 M/uL (4.70-6.10); White Blood Count 13.27 K/ul (4.8-10.8)
[2023-09-07] MEDS ORDERED: SODIUM CHLORIDE 0.9% 1,000 ML IV ONE (07:41)
[2023-09-07] MEDS: SODIUM CHLORIDE 0.9% 1,000 ML IV ONE (08:18)
[2023-09-07] MEDS: carvediloL 12.5 MG TAB PO SCH (08:21)
[2023-09-07] MEDS: ROSUVASTATIN CALCIUM 5 MG TAB PO SCH (08:21)
[2023-09-07] MEDS: PANTOprazole 40 MG TAB PO SCH (08:22)
[2023-09-07] MEDS: CYANOCOBALAMIN (B-12) 500 MCG TABLET PO SCH (08:22)
[2023-09-07] MEDS: ASPIRIN 81 MG ECTAB PO SCH (08:23)
[2023-09-07] MEDS: amLODIPine BESYLATE 5 MG TAB PO SCH (08:23)
--- OUTSIDE RECORDS SUMMARY | 2023-09-07 10:28 | External Medical Summary | Summary of Care ---
Author Name Unknown Organization [facility] Address [address] [place] [facility] [place] [address] Phone [phone] Care Team Providers Care Efficiency Engineer Name Role Phone Timmy Chavez MD Primary Care Provider + Reason for Visit * Reason Comments Dosage Adjustment In Person (Anticoag Cl inic) Diabetes Follow-Up Encounter Details Date Type Department Care Team (Late st Contact Info) Description 08/12/2023 3:30 PM EDT Office Visit Pharmacy, [facility] [address] [facility] [address] [facility] [address] [address] Type 2 diabetes mellitus with hemoglobin A1c goal of less than 8.0% ([facility])* Allergies Active Allergy Reactions Criticality Noted Date Comments Lisinopril Edema face/lips/tongue High 11/28/2003 Lip swelling documented as of this encounter (statuses as of 08/12/2023) Medications Medication Sig Dispensed Refills Start Date End Date Status CETIRIZINE HCL 10 MG PO TABS one tablet by mouth daily at night 0 Active ASPIRIN 81 MG PO CHEWIndications:Ches t pain,Dyslipidemia, goal LDL below 100,HTN, goal below 130/80,DM type 2, goal A1c below 7 take one tablet daily 100 Tab 3 12/22/2010 Active HM VITAMIN D3 2000 UNITS PO CAPS 1 CAPSULE DAILY 0 10/03/2012 Active VITAMIN B-12 1000 MCG PO TABS 1 TABLET DAILY 0 02/25/2014 Active fluticasone (FLONASE) 50 MCG/ACT nasal spray USE ONE SPRAY IN EACH NOSTRIL TWICE DAILY FOR ALLERGIES 1 Bottle 3 12/02/2014 Active CPAP every night at bedtime. 0 Active metFORMIN HCl 500 MG Oral Tablet (Glucophage)Indicati ons:Type 2 diabetes mellitus with hemoglobin A1c goal of less than 7.0% (HCC) Take 1 Tablet by mouth 2 times a day with morning and evening meals. 180 Tablet 3 08/23/2022 Active Fenofibrate Micronized 67 MG Oral CapsuleIndications:D yslipidemia, goal LDL below 100 Take 1 Capsule by mouth daily before breakfast. 90 Capsule 3 12/21/2022 Active Terazosin HCl 1 MG Oral Capsule (Hytrin)Indications: Hypertensive heart disease without heart failure,HTN, goal below 140/90 TAKE TWO CAPSULES BY MOUTH ONCE DAILY AT BEDTIME 180 Capsule 3 01/20/2023 Active Carvedilol 25 MG Oral Tablet (Coreg)Indications:H TN, goal below 140/80,Hypertensive heart disease without congestive heart failure TAKE ONE & ONE-HALF TABLETS BY MOUTH TWICE DAILY WITH MORNING AND EVENING MEALS 270 Tablet 3 04/07/2023 Active Omeprazole 20 MG Oral Capsule Delayed Release (PriLOSEC)Indication s:GERD (gastroesophageal reflux disease) TAKE 1 CAP BY MOUTH DAILY. 90 Capsule 1 04/07/2023 Active Levothyroxine Sodium 100 MCG Oral Tablet (Levoxyl)Indications :Hypothyroidism due to acquired atrophy of thyroid Take 1 Tablet by mouth in the morning. 30 minutes prior to breakfast or other meds. 90 Tablet 1 04/07/2023 Active Spironolactone 25 MG Oral Tablet (Aldactone)Indicatio ns:Hypertensive heart disease without heart failure One tablet daily 90 Tablet 3 04/26/2023 Active Empagliflozin 25 MG Oral Tablet (Jardiance) Take 1 Tablet by mouth in the morning. 90 Tablet 3 04/25/2023 Active Testosterone 20.25 MG/ACT (1.62%) Transdermal Gel (AndroGel Pump)Indications:Hyp ogonadism male Apply 3 Act topically to affected area in the morning. to clean, dry, unbroken skin on the shoulders or upper arms.. 225 g 1 06/09/2023 Active amLODIPine Besylate 10 MG Oral Tablet (Norvasc)Indications :HTN, goal below 140/80 Take 1 Tablet by mouth in the morning. 90 Tablet 3 06/17/2023 Active Rosuvastatin Calcium 5 MG Oral Tablet (Crestor)Indications :Dyslipidemia, goal LDL below 100 Take 1 Tablet by mouth in the morning. 90 Tablet 3 07/18/2023 Active Trulicity 4.5 MG/0.5ML Subcutaneous Solution Pen-injector (Dulaglutide)Indicat ions:Type 2 diabetes mellitus with hemoglobin A1c goal of less than 7.0% ([facility]) Inject 1 pen once weekly 6 mL 3 07/15/2023 Active documented as of this encounter (statuses as of 08/12/2023) Active Problems Problem Noted Date Diagnosed Date Chronic kidney disease, stage 3b 08/09/2022 Overview: Per CKD protocol Hypertension associated with stage 3b chronic kidney disease due to type 2 diabetes mellitus 08/09/2022 Overview: Per CKD protocol Gastroenteritis 02/03/2022 Hx of actinic keratosis 03/06/2018 Well adult exam 09/09/2016 Overview: Hx growth hormone as child. 05/21 grandson with Hirshprung surgery 05/21 colon mult polyps PATH PEND 2013 colonoscopy WNL. HTN, goal below 140/90 08/04/2015 Overview: Per HTN Protocol #27. Epididymal cyst 06/18/2014 Low testosterone 06/18/2014 Overview: With chronic fatigue. Other anterior pituitary disorders 03/14/2013 Overview: Injury at ? Type 2 diabetes mellitus with hypoglycemia unawa reness 01/22/2013 Hypogonadism male 12/06/2012 Intermittent asthma with reliever use up to twic e per week 08/11/2012 Hypertensive heart disease 04/12/2012 Severe obstructive sleep apnea 05/07/2011 Overview: CPAP 8 cwp AHI 44 [employer] DYSLIPIDEMIA, GOAL LDL BELOW 100 05/15/2009 Overview: Per Lipid Taxonomy. Type 2 diabetes mellitus wit h hemoglobin A1c goal of less than 8.0% 03/27/2009 Overview: Per Diabetes Taxonomy. ICD-10 update of inactive term ADVANCE DIRECTIVE INFORMATION 04/30/2005 Overview: Yes, Patient instructed to provide copy of advance directive for provider to review and to be scanned into Electronic Medical Record Hypothyroidism due to acquired atrophy of thyroi d Allergic rhinitis documented as of this encounter (statuses as of 08/12/2023) Resolved Problems Problem Noted Date Diagnosed Date Resolved Date Stage 3 chronic kidney disease 11/08/2022 12/09/2022 Type 2 diabetes mellitus wit h stage 3a chronic kidney disease and hypertension 05/10/2022 08/11/2022 Overview: Per CKD protocol Type 2 DM with CKD stage 3 and hypertension 05/03/2022 05/13/2022 Overview: Per CKD protocol COVID-19 virus infection 04/28/2020 Stage 3a chronic kidney disease 04/07/2020 08/11/2022 Overview: Per CKD protocol Kidney disease, chronic, sta ge III (GFR 30-59 ml/min) 08/07/2018 04/10/2020 Overview: Per CKD protocol #1 Hematospermia 06/18/2014 09/09/2016 Overview: Really blood in semen (he had a bilateral vasectomy and the blood should not be from the testes). Screening for deficiency anemia 12/11/2012 09/09/2016 Hypoglycemia 12/06/2012 09/09/2016 [facility] HTN3 Clinical [facility] [id number] 09/27/2012 11/23/2012 HTN, GOAL BELOW 140/80 01/17/201209/02 Overview: Per HTN Protocol #27. Sleep apnea 02/08/2011 05/07/2011 HTN, GOAL BELOW 130/80 06/26/200901/19 Overview: Per HTN Taxonomy. PURE HYPERCHOLESTEROLEM 03/05/200504/29 Overview: Per Lipid Taxonomy. ACUTE SINUSITIS NOS 05/17/2004 12/28/19 05 ACUTE URI NOS 05/17/2004 12/27/2004 Unspecified viral infection, in conditions classified elsewhere and of unspecified site 05/17/2004 12/27/2004 Myalgia and myositis 05/17/2004 005 ASTHMA,UNSPEC,W/ ACUTE EXACERB 05/17/2004 11/01/2008 HTN, goal below 140/90 03/05/200206/26 Overview: Per HTN Taxonomy. Panhypopituitarism 7 Asthma with severity to be determined 09/09/2016 Overview: ICD-10 update of inactive term Type 2 diabetes mellitus wit h hemoglobin A1c goal of less than 7.0% 03/27/2009 Overview: Per Diabetes Taxonomy. ICD-10 update of inactive term documented as of this encounter (statuses as of 08/12/2023) Immunizations Name Administration Dates Next Due COVID-19 mRNA, LNP-s, No Pre serve, 2-Dose Series ([employer]Logic) 05/13/2021,08/18/2020,07/28/2020 H1N1 2009 Influenza, IM 03/30/2009 Hepatitis B, 20+ yrs 03/31/1995,10/28/1994,09/27 Pneumococcal Conjugate Vacci ne, 20-valent ([id number]) 11/03/2021 Seasonal Influenza, PF, 6 M & above, IM , (FluLaval or Fluzone) 2023,03/16/2022,02/17/2021,2019,03/12/2019,03/06/2018 Seasonal Influenza, Quadriva lent, No Preserve, IM 02/16/2017,03/10/2015 Seasonal Influenza, Split, I IV3, With Preserve, Inj 03/01/2014,02/15/2013,02/08/2012,2010,02/26/2010,02/27/2009,04/01/2008,1 06/18/2006,03/07/2006 TDAP (age 10 and older)(Boostrix) 05/25/2016 TDAP (age 11 and older)(Adacel) 11/01/2005 Zoster Vaccine Recombinant (Shingrix) 12/19/2018 ,09/15/2018 documented as of this encounter Social History Tobacco Use Types Packs/Day Years Used Date Smoking Tobacco: Never Smokeless Tobacco: Never Comments:No Passive smoke ex posure Alcohol Use Standard Drinks/Week Comments No 0 (1 standard drink = 0.6 oz pur e alcohol) PHQ-2 Answer Date Recorded PHQ Adult Total Score 0 11/03/2022 Hunger Vital Sign Answer Date Recorded Within the past 12 months, y ou worried that your food would run out before you got the money to buy more. Never true 11/04/19 Within the past 12 months, t he food you bought just didn't last and you didn't have money to get more. Never true 11/03/2022 Sex and Gender Information Value Date Recorded Sex Assigned at Male 11/03/2022 3:49 PM EDT Gender Identity Male 11/03/2022 3:49 PM EDT Sexual Orientation Straight 11/03/2022 3: 49 PM EDT Job Start Date Occupation Industry Not on file Not on file Not on file documented as of this encounter Progress Notes * Cookie Ortiz, [facility] - 08/12/2023 3:19 PM EDT Medication Therapy Disease [facility] - Diabetes Management Progress Note Landon Cecy Ghosh Sr., identified by name and date of , is a 58 year old male being seen for diabetes management/education. Patient presents for return diabetic visit. DIABETES: Current diabetic medications: Metformin 500 mg tablets BID Trulicity 4.5 mg weekly Jardiance 25 mg daily Medication Injection Site: Abdomen Lifestyle: Diet: improved Glucose Review/SMBG: Readings per patient memory/recall: Patient is currently testing 0 times a day Hypoglycemia: Does your blood sugar go below 70 mg/dL? No Hyperglycemia symptoms present: none Recent Labs Units 07/21/23 1439 05/06/23 0940 07/23/22 0736 HEMOGLOBIN A1C - [facility] % 8.1* 10.1* 8.8* Recent Labs Units 07/21/23 1439 10/22/22 0739 07/23/22 0736 ESTIMATED GLOMERULAR FILTRATION RATE - [facility] mL/min 48* 51* 43* CREATININE - [facility] mg/dL 1.6* 1.6* 1.8* HYPERTENSION: Patient on ACEi/ARB: no, not indicated BP Readings from Last 3 Encounters: 07/21/23 130/74 05/20/23 112/68 05/19/23 115/65 Blood pressure at goal: yes HYPERLIPIDEMIA: Patient is taking moderate or high intensity statin: yes HEALTH MAINTENANCE REVIEW: Health Maintenance Due Topic Date Due DXA Scan 05/16/2018 Diabetic Eye Exam 11/18/2022 COVID-19 Vaccine ( season) 2023 CKD HGB USE SMARTSET [id number] 07/23/2023 Albumin/Creatinine Ratio 10/23/2023 ASSESSMENT & PLAN: ICD-10-CM 1. Type 2 diabetes mellitus with hemoglobin A1c goal of less than 8.0% (HCC) E11.9 BG Readings - Blood sugars controlled. A1c improved to 8.1%. Medications - Reviewed current regimen, patient is adherent to regimen. Will continue at this time. Diet, Exercise, Lifestyle - increased exercise . Discussed with patient. Patient is agreeable to SMBG 0 time(s) daily. Patient aware to contact clinic if any hypoglycemia before next visit. MEDICATION CHANGES: no change Diabetic Medications: Metformin 500 mg tablets BID Trulicity 4.5 mg weekly Jardiance 25 mg daily HEALTH MAINTENANCE INTERVENTIONS: Labs: Up to Date Immunizations: Up to Date Foot Exam: Up to Date Eye Exam: Up to Date Annual Wellness Visit: Up to Date FOLLOW UP: Return to clinic in 12 weeks 12/02/2023 Cookie Ortiz rah Clinical Pharmacist - [employer] Medication Therapy Management Clinic 08/12/2023, 3:19 PM documented in this encounter Plan of Treatment Upcoming Encounters Date Type Department Care Team (Late st Contact Info) Description 10/07/2023 1:30 PM EDT Imaging Cardiac Studies, [facility] [address] [place] [address] 11/23/2023 11:40 AM EDT Office Visit Family Practice [facility] [address] [place] [address] Timmy Chavez MD [address] [place] [address] 12/02/2023 3:30 PM EDT Office Visit Pharmacy, [facility] [address] [facility] [place] [address] [facility] [address] [facility] [place] [address] 05/17/2024 10:00 AM EST Office Visit Sleep Disorders Ctr [facility] [address] [facility] [place] [phone] Mariel Mendez, [address] [place] [address] Scheduled Procedures Name Priority Associated Diagnoses Date/Ti me COLONOSCOPY FLEXIBLE PROXIMA L DIAGNOSTIC Recall History of colonic polyps Health Maintenance Due Date Last Done Comments DXA Scan 05/16/2018 05/16/2017 Diabetic Eye Exam 11/18/2022 11/18/2021, , 01/16/2018, Additional history exists COVID-19 Vaccine ( season) 2023 05/13/2021, 08/18/2020, 07/28/2020 CKD HGB USE SMARTSET 15886 07/23/202307/23, 04/29/2021, 09/09/2016, Additional history exists Albumin/Creatinine Ratio 10/23/2023 023, 07/23/2022, 01/30/2021, Additional history exists CKD PHOS USE SMARTSET 19420 10/23/202309/28, 07/23/2022, 08/21/2021, Additional history exists TSH 10/23/2023 10/22/2022, 07/29, 07/02/2020, Additional history exists Depression Screening 11/04/2023 11/03/2022 Diabetic Foot Exam 11/04/2023 11/03/2022, 0 11/03/2021, 10/23/2020, Additional history exists GFR 01/19/2024 07/21/2023, 09/28, 07/23/2022, Additional history exists HbA1c 01/19/2024 07/21/2023, 12/2022, 07/23/2022, Additional history exists DTaP,Tdap,and Td Vaccines (3 - Td or Tdap) 05/25/2026 05/25/2016, 11/01/2005, 10/28/1994 COLONOSCOPY-EVERY 5 YRS AGES 18-100 05/19/2028 05/19/2023, 05/19/2023, 12/27/2012, Additional history exists Lipid Panel 07/21/2028 07/21/2023, 02/27, 07/02/2020, Additional history exists Hepatitis B Completed 03/31/1995, 05/1994, 10/28/1994, Additional history exists Fecal Occult Blood Test Discontinued 12/15/2012 Zoster Vaccines Completed 12/19/2018, 09/15/2018 Pneumococcal Vaccine: Pediatrics (0 to 5 Years) and At-Risk Patients (6 to 64 Years) Completed 11/03/2021, 03/05/2002 Influenza Vaccine (FLU shot) Completed 2023, 03/16/2022, 02/17/2021, Additional history exists Colonoscopy Discontinued 05/19/2023, 04/30, 12/27/2012, Additional history exists Colorectal Cancer Screening Discontinued Cologuard Discontinued GARDASIL-HPV IMMUNIZATION SERIES Aged Out No longer eligible based on patient's age to complete this topic MENINGOCOCCAL (MENACTRA/MENVEO) Aged Out No longer eligible based on patient's age to complete this topic Sigmoidoscopy Discontinued documented as of this encounter Medical Devices Not on filedocumented as of this encounter Visit Diagnoses Diagnosis Type 2 diabetes mellitus with hemoglobin A1c goal of less than 8.0% (HCC)- Primary documented in this encounter Care Teams Efficiency Engineer Relationship Specialty Start Date End Date Timmy Chavez MD [address] [place] [address] PCP - General Family Medicine 09/09/16 documented as of this encounter
--- OUTSIDE RECORDS SUMMARY | 2023-09-07 10:28 | External Medical Summary | Summary of Care ---
Author Name Unknown Organization [facility] Address [address] [facility] [place] [address] Phone [phone] Care Team Providers Care Client Service Consultant Name Role Phone Timmy Chavez MD Primary Care Provider + Encounter Details Date Type Department Care Team (Late st Contact Info) Description 05/10/2023 Telephone OR [facility], Operating Room [facility] [address] [facility] [place] [address] Kateryna Urbina MD [address] [place] [address] [place] [address] Allergies Active Allergy Reactions Criticality Noted Date Comments Lisinopril Edema face/lips/tongue High 11/28/2003 Lip swelling documented as of this encounter (statuses as of 08/09/2023) Medications Medication Sig Dispensed Refills Start Date End Date Status CETIRIZINE HCL 10 MG PO TABS one tablet by mouth daily at night 0 Active ASPIRIN 81 MG PO CHEWIndications:Rebeca st pain,Dyslipidemia, goal LDL below 100,HTN, goal below [...] Active metFORMIN HCl 500 MG Oral Tablet (Glucophage)Indicat ions:Type 2 diabetes mellitus with hemoglobin A1c goal of less than 7.0% (HCC) Take 1 Tablet by mouth 2 times a day with morning and evening meals. 180 Tablet 3 08/23/2022 Active Fenofibrate Micronized 67 MG Oral CapsuleIndications: Dyslipidemia, goal LDL below 100 Take 1 Capsule by mouth daily before breakfast. 90 Capsule 3 12/21/2022 Active Terazosin HCl 1 MG Oral Capsule (Hytrin)Indications :Hypertensive heart disease without heart failure,HTN, goal below 140/90 TAKE TWO CAPSULES BY MOUTH ONCE DAILY AT BEDTIME 180 Capsule 3 01/20/2023 Active Carvedilol 25 MG Oral Tablet (Coreg)Indications: HTN, goal below 140/80,Hypertensive heart disease without congestive heart failure TAKE ONE & ONE-HALF TABLETS BY MOUTH TWICE DAILY WITH MORNING AND EVENING MEALS 270 Tablet 3 04/07/2023 Active Omeprazole 20 MG Oral Capsule Delayed Release (PriLOSEC)Indicatio ns:GERD (gastroesophageal reflux disease) TAKE 1 CAP BY MOUTH DAILY. 90 Capsule 1 04/07/2023 Active Levothyroxine Sodium 100 MCG Oral Tablet (Levoxyl)Indication s:Hypothyroidism due to acquired atrophy of thyroid Take 1 Tablet by mouth in the morning. 30 minutes prior to breakfast or other meds. 90 Tablet 1 04/07/2023 Active Spironolactone 25 MG Oral Tablet (Aldactone)Indicati ons:Hypertensive heart disease without heart failure One tablet daily 90 Tablet 3 04/26/2023 Active Empagliflozin 25 MG Oral Tablet (Jardiance) Take 1 Tablet by mouth in the morning. 90 Tablet 3 04/25/2023 Active documented as of this encounter (statuses as of 08/09/2023) Active Problems Problem Noted Date Diagnosed Date [...] as of this encounter (statuses as of 08/09/2023) Resolved Problems Problem Noted Date Diagnosed Date [...] deficiency anemia 12/11/2012 09/09/2016 Hypoglycemia 12/06/2012 09/09/[facility] Tri al [id number] 09/27/2012 11/23/2012 HTN, GOAL BELOW 140/80 01/17/201209/02 [...] as of this encounter (statuses as of 08/09/2023) Immunizations Name Administration Dates Next Due COVID-19 mRNA, LNP-s, No Pre serve, 2-Dose Series (ReplyBuy) 05/13/2021,08/18/2020,07/28/2020 H1N1 2009 Influenza, IM 03/30/2009 Hepatitis B, 20+ yrs 03/31/1995,10/28/1994,09/27 Pneumococcal Conjugate Vacci ne, 20-valent ([id number]) 11/03/2021 Seasonal Influenza, PF, 6 M & [...] money to buy more. Never true 11/04/19 23 Within the past 12 months, t he [...] on file documented as of this encounter Miscellaneous Notes * Telephone Encounter - Latanya Forbes RN - 05/10/2023 2:34 PM EST Attempted to call for pre anesthesia evaluation. No answer. Voice mail left requesting return call documented in this encounter Plan of Treatment Upcoming Encounters Date Type Department Care Team (Late st Contact Info) Description 08/12/2023 3:30 PM EDT Office Visit Pharmacy, [facility] [address] [facility] [place] [address] [facility] [address] [facility] [facility] [place] [address] 10/07/2023 1:30 PM EDT Imaging Cardiac Studies, [facility] [address] [place] [address] 11/23/2023 11:40 AM EDT Office Visit Family Practice [facility] [address] [place] [address] Timmy Chavez MD [address] [place] [address] 05/17/2024 10:00 AM EST Office Visit Sleep Disorders Ctr [facility] [address] [place] [phone] Mariel Mendez DO [address] [place] [address] Scheduled Procedures Name Priority Associated Diagnoses Date/Ti me COLONOSCOPY FLEXIBLE PROXIMA L DIAGNOSTIC Recall History of colonic polyps Health Maintenance Due Date Last Done Comments DXA Scan 05/16/2018 05/16/2017 Diabetic Eye Exam 11/18/2022 11/18/2021, , 01/16/2018, Additional history exists COVID-19 Vaccine ( season) 2023 05/13/2021, 08/18/2020, 07/28/2020 CKD HGB USE SMARTSET 53689 07/23/202307/23, 04/29/2021, 09/09/2016, Additional history exists Albumin/Creatinine Ratio 10/23/2023 023, 07/23/2022, 01/30/2021, Additional history exists CKD PHOS USE SMARTSET [id number] 10/23/202309/28, 07/23/2022, 08/21/2021, Additional history exists TSH 10/23/2023 10/22/2022, 07/29, 07/02/2020, Additional history exists Depression Screening 11/04/2023 11/03/2022 Diabetic Foot Exam 11/04/2023 11/03/2022, 0 11/03/2021, 10/23/2020, Additional history exists GFR 01/19/2024 07/21/2023, 09/28, 07/23/2022, Additional history exists HbA1c 01/19/2024 07/21/2023, 1212/2022, 07/23/2022, Additional history exists DTaP,Tdap,and Td Vaccines [...] Not on filedocumented as of this encounter Care Teams Client Service Consultant Relationship Specialty Start Date End Date Timmy Chavez MD [address] [place] [address] PCP - General Family Medicine 09/09/16 documented as of this encounter
--- OUTSIDE RECORDS SUMMARY | 2023-09-07 10:29 | External Medical Summary ---
Author Name Unknown Address Unknown Organization [id number] [address] [place] [address] Laboratory Report Ordering Provider Test Date Status TIFFANIE GAXIOLA 07/21/2023 14:39:35 Final Observation Date Value Abnormality Reference (Units ) Status BUN 07/21/2023 14:39:35 29 Above high normal 6-20 (mg/dL) Final Creatinine 07/21/2023 14:39:35 1.6 Above high normal 0.6-1.2 (mg/dL) Final Glomerular filtration rate/1.73 sq M.predicted [Volume Rate/Area] in Serum, Plasma or Blood by Creatinine-based formula (CKD-EPI) 07/21/2023 14:39:35 48 Below low normal >=60 (mL/min) Final eGFR is calculated based on the CKD-EPI 2020 equation SODIUM 07/21/2023 14:39:35 137 135-146 (m mol/L) Final Potassium 07/21/2023 14:39:35 4.3 3.5-5.1 (m mol/L) Final Cl 07/21/2023 14:39:35 102 98-107 (mm ol/L) Final CO2 07/21/2023 14:39:35 23 22-32 (mmo l/L) Final Anion gap 07/21/2023 14:39:35 12 7-15 (mmol /L) Final Glucose 07/21/2023 14:39:35 191 Above high normal 70 -120 (mg/dL) Final Calcium 07/21/2023 14:39:35 10.0 8.4-10.2 ( mg/dL) Final Performing Location [facility] [address] [place] [address]
--- OUTSIDE RECORDS SUMMARY | 2023-09-07 10:29 | External Medical Summary | Summary of Care ---
Author Name Unknown Organization [facility] Address [address] [place] [address] Phone [phone] Care Team Providers Care Senior Merchandiser Name Role Phone Timmy Chavez MD Primary Care Provider + Reason for Visit * Reason Comments Outpatient Testing Encounter Details Date Type Department Care Team (Late st Contact Info) Description 07/21/2023 2:40 PM EST Laboratory Laboratory, [facility] [address] [place] [address] [facility] [address] [place] [address] Type 2 diabetes mellitus with hemoglobin A1c goal of less than 8.0% ([facility]) Allergies Active Allergy Reactions Criticality Noted Date Comments Lisinopril Edema face/lips/tongue High 11/28/2003 Lip swelling documented as of this encounter (statuses as of 07/21/2023) Medications Medication Sig Dispensed Refills Start Date [...] A1c goal of less than 7.0% (HCC) Inject 1 pen once weekly 6 mL 3 07/15/2023 Active documented as of this encounter (statuses as of 07/21/2023) Active Problems Problem Noted Date Diagnosed Date [...] as of this encounter (statuses as of 07/21/2023) Resolved Problems Problem Noted Date Diagnosed Date [...] deficiency anemia 12/11/2012 09/09/2016 Hypoglycemia 12/06/2012 09/09/2016 [facility] HTN3 Clinical [facility] [id number] 09/27/2012 11/23/2012 HTN, GOAL BELOW 140/80 01/17/201209/02 [...] as of this encounter (statuses as of 07/21/2023) Immunizations Name Administration Dates Next Due COVID-19 mRNA, LNP-s, No Pre serve, 2-Dose Series ([employer]) 05/13/2021,08/18/2020,07/28/2020 H1N1 2009 Influenza, IM 03/30/2009 Hepatitis B, 20+ yrs 03/31/1995,10/28/1994,09/27 Pneumococcal Conjugate Vacci ne, 20-valent ([id number]) 11/03/2021 Seasonal Influenza, PF, 6 M & [...] on file documented as of this encounter Plan of Treatment Upcoming Encounters Date Type Department Care Team (Late st Contact Info) Description 07/21/2023 3:30 PM EST Office Visit Cardiology, [facility] [address] [place] [address] Scot Vernon DO [address] [place] [address] Arrived 08/12/2023 3:30 PM EDT Office Visit Pharmacy, [facility] [address] [place] [address] [facility] [address] [place] [address] 11/23/2023 11:40 AM EDT Office Visit Family Practice [facility] [address] [place] [address] Timmy Chavez MD [address] [place] [address] 05/17/2024 10:00 AM EST Office Visit Sleep Disorders Ctr [facility] [place] [address] [place] [phone] Mariel Mendez, [address] [place] [address] Pending Results Name Type Priority Associated Diagnoses Date /Time HEMOGLOBIN A1C Lab Routine Type 2 diabetes mellitus with hemoglobin A1c goal of less than 8.0% (HCC) 07/21/2023 2:39 PM EST BASIC METABOLIC PANEL Lab Routine Type 2 diabetes mellitus with hemoglobin A1c goal of less than 8.0% ([facility]) 07/21/2023 2:39 PM EST LIPID PANEL WITH DIRECT LDL IF TG IS HIGH Lab Routine Type 2 diabetes mellitus with hemoglobin A1c goal of less than 8.0% ([facility]) 07/21/2023 2:39 PM EST Scheduled Procedures Name Priority Associated Diagnoses Date/Ti me COLONOSCOPY FLEXIBLE PROXIMA L DIAGNOSTIC Recall History of colonic polyps Health Maintenance Due Date Last Done Comments DXA Scan 05/16/2018 05/16/2017 Diabetic Eye Exam 11/18/2022 11/18/2021, , 01/16/2018, Additional history exists COVID-19 Vaccine ( season) 2023 05/13/2021, 08/18/2020, 07/28/2020 GFR 04/24/2023 10/22/2022, 07/01, 03/12/2022, Additional history exists CKD HGB USE SMARTSET 84906 07/23/202307/23, 04/29/2021, 09/09/2016, Additional history exists Albumin/Creatinine Ratio 10/23/2023 023, 07/23/2022, 01/30/2021, Additional history exists CKD PHOS USE SMARTSET 94776 10/23/20232 10/2022, 07/23/2022, 08/21/2021, Additional history exists TSH 10/23/2023 10/22/2022, 07/29, 07/02/2020, Additional history exists Depression Screening 11/04/2023 11/03/2022 Diabetic Foot Exam 11/04/2023 11/03/2022, 0 11/03/2021, 10/23/2020, Additional history exists HbA1c 11/05/2023 05/06/2023, 07/01, 03/12/2022, Additional history exists DTaP,Tdap,and Td Vaccines (3 - Td or Tdap) 05/25/2026 05/25/2016, 11/01/2005, 10/28/1994 Lipid Panel 03/12/2027 03/12/2022, 07/2020, 03/13/2020, Additional history exists COLONOSCOPY-EVERY 5 YRS AGES 18-100 05/19/2028 05/19/2023, 05/19/2023, 12/27/2012, Additional history exists Hepatitis B Completed 03/31/1995, [...] A1c goal of less than 8.0% (HCC) documented in this encounter Care Teams Senior Merchandiser Relationship Specialty Start Date End Date Timmy Chavez MD [address] [place] [address] PCP - General Family Medicine 09/09/16 documented as of this encounter
--- OUTSIDE RECORDS SUMMARY | 2023-09-07 10:29 | External Medical Summary | Summary of Care ---
Author Name Unknown Organization [facility] Address [address] [place] [address] Phone [phone] Care Team Providers Care Stave And Bolt Equalizer Name Role Phone Timmy Allen MD Primary Care Provider + Reason for Visit * Reason Onset Date Comments Medication Refill 07/14/2023 Encounter Details Date Type Department Care Team (Late st Contact Info) Description 07/14/2023 Refill Pharmacy, [facility] [address] [facility] [address] Timmy Allen MD [address] [place] [address] Type 2 diabetes mellitus with hemoglobin A1c goal of less than 7.0% ([facility]) Allergies Active Allergy Reactions Criticality Noted Date Comments Lisinopril Edema face/lips/tongue High 11/28/2003 Lip swelling documented as of this encounter (statuses as of 07/15/2023) Medications Medication Sig Dispensed Refills Start Date End Date Status CETIRIZINE HCL 10 MG PO TABS one tablet by mouth daily at night 0 Active ASPIRIN 81 MG PO CHEWIndications:Ch est pain,Dyslipidemia, goal LDL below 100,HTN, goal below [...] CPAP every night at bedtime. 0 Active Rosuvastatin Calcium 5 MG Oral Tablet (Crestor)Indicatio ns:Dyslipidemia, goal LDL below 100 Take 1 Tablet by mouth in the morning. 90 Tablet 3 07/13/2022 Active metFORMIN HCl 500 MG Oral Tablet (Glucophage)Indica tions:Type 2 diabetes mellitus with hemoglobin A1c goal of less than 7.0% (HCC) Take 1 Tablet by mouth 2 times a day with morning and evening meals. 180 Tablet 3 08/23/2022 Active Fenofibrate Micronized 67 MG Oral CapsuleIndications :Dyslipidemia, goal LDL below 100 Take 1 Capsule by mouth daily before breakfast. 90 Capsule 3 12/21/2022 Active Terazosin HCl 1 MG Oral Capsule (Hytrin)Indication s:Hypertensive heart disease without heart failure,HTN, goal below 140/90 TAKE TWO CAPSULES BY MOUTH ONCE DAILY AT BEDTIME 180 Capsule 3 01/20/2023 Active Carvedilol 25 MG Oral Tablet (Coreg)Indications :HTN, goal below 140/80,Hypertensiv e heart disease without congestive heart failure TAKE ONE & ONE-HALF TABLETS BY MOUTH TWICE DAILY WITH MORNING AND EVENING MEALS 270 Tablet 3 04/07/2023 Active Omeprazole 20 MG Oral Capsule Delayed Release (PriLOSEC)Indicati ons:GERD (gastroesophageal reflux disease) TAKE 1 CAP BY MOUTH DAILY. 90 Capsule 1 04/07/2023 Active Levothyroxine Sodium 100 MCG Oral Tablet (Levoxyl)Indicatio ns:Hypothyroidism due to acquired atrophy of thyroid Take 1 Tablet by mouth in the morning. 30 minutes prior to breakfast or other meds. 90 Tablet 1 04/07/2023 Active Spironolactone 25 MG Oral Tablet (Aldactone)Indicat ions:Hypertensive heart disease without heart failure One tablet daily 90 Tablet 3 04/26/2023 Active Empagliflozin 25 MG Oral Tablet (Jardiance) Take 1 Tablet by mouth in the morning. 90 Tablet 3 04/25/2023 Active Testosterone 20.25 MG/ACT (1.62%) Transdermal Gel (AndroGel Pump)Indications:H ypogonadism male Apply 3 Act topically to affected area in the morning. to clean, dry, unbroken skin on the shoulders or upper arms.. 225 g 1 06/09/2023 Active amLODIPine Besylate 10 MG Oral Tablet (Norvasc)Indicatio ns:HTN, goal below 140/80 Take 1 Tablet by mouth in the morning. 90 Tablet 3 06/17/2023 Active Trulicity 4.5 MG/0.5ML Subcutaneous Solution Pen-injector (Dulaglutide)Indic ations:Type 2 diabetes mellitus with hemoglobin A1c goal of less than 7.0% (HCC) Inject 1 pen once weekly 6 mL 3 07/15/2023 Active Trulicity 4.5 MG/0.5ML Subcutaneous Solution Pen-injector (Dulaglutide)Indic ations:Type 2 diabetes mellitus with hemoglobin A1c goal of less than 7.0% (HCC) Inject 1 pen once weekly 6 mL 3 08/23/2022 4 Discontinue d(Refill) documented as of this encounter (statuses as of 07/15/2023) Active Problems Problem Noted Date Diagnosed Date [...] as of this encounter (statuses as of 07/15/2023) Resolved Problems Problem Noted Date Diagnosed Date [...] deficiency anemia 12/11/2012 09/09/2016 Hypoglycemia 12/06/2012 09/09/2016 [facility] HTN3 Clinical [facility] [id number] 09/27/2012 11/23/2012 HTN, GOAL BELOW 140/80 01/17/201209/02 [...] as of this encounter (statuses as of 07/15/2023) Immunizations Name Administration Dates Next Due COVID-19 mRNA, LNP-s, No Pre serve, 2-Dose Series ([employer]) 05/13/2021,08/18/2020,07/28/2020 H1N1 2009 Influenza, IM 03/30/2009 Hepatitis B, 20+ yrs 03/31/1995,10/28/1994,09/27 Pneumococcal Conjugate Vacci ne, 20-valent ([id number]) 11/03/2021 Seasonal Influenza, PF, 6 M & [...] encounter Miscellaneous Notes * Telephone Encounter - Aron Pulido RPh - 07/15/2023 7:57 AM ESTSigned Prescriptions: Disp Refills Trulicity 4.5 MG/0.5ML Subcutaneous Soluti*6 mL 3 Sig: Inject 1 pen once weeklyAuthorizing Provider: TIMMY ALLEN User: ARON PULIDO documented in this encounter Plan of Treatment Upcoming Encounters Date Type Department Care Team (Late st Contact Info) Description 07/21/2023 3:30 PM EST Office Visit Cardiology, [facility] [address] [place] [address] Scot Vernon, [address] [place] [address] 08/12/2023 3:30 PM EDT Office Visit Pharmacy, [facility] [address] [place] [address] [facility] [address] [place] [address] 11/23/2023 11:40 AM EDT Office Visit Family Practice [facility] [address] [place] [address] Timmy Allen MD [address] [place] [address] 05/17/2024 10:00 AM EST Office Visit Sleep Disorders Ctr [facility] [address] [place] [id number] Mariel Mendez DO [address] [place] [address] Scheduled Procedures Name Priority Associated Diagnoses Date/Ti me COLONOSCOPY FLEXIBLE PROXIMA L DIAGNOSTIC Recall History of colonic polyps Health Maintenance Due Date Last Done Comments DXA Scan 05/16/2018 05/16/2017 Diabetic Eye Exam 11/18/2022 11/18/2021, , 01/16/2018, Additional history exists COVID-19 Vaccine ( season) 2023 05/13/2021, 08/18/2020, 07/28/2020 GFR 04/24/2023 10/22/2022, 07/01, 03/12/2022, Additional history exists CKD HGB USE SMARTSET 65084 07/23/2023 02/24 /2023, 04/29/2021, 09/09/2016, Additional history exists Albumin/Creatinine Ratio 10/23/2023 023, 07/23/2022, 01/30/2021, Additional history exists CKD PHOS USE SMARTSET 12768 10/23/202[address] 10/2022, 07/23/2022, 08/21/2021, Additional history exists TSH 10/23/2023 10/22/2022, 07/29, 07/02/2020, Additional history exists Depression Screening 11/04/2023 11/03/2022 Diabetic Foot Exam 11/04/2023 11/03/2022, 0 11/03/2021, 10/23/2020, Additional history exists HbA1c 11/05/2023 05/06/2023, 07/01, 03/12/2022, Additional history exists DTaP,Tdap,and Td Vaccines (3 - Td or Tdap) 05/25/2026 05/25/2016, 11/01/2005, 10/28/1994 Lipid Panel 03/12/2027 03/12/2022, 020 07/2020, 03/13/2020, Additional history exists COLONOSCOPY-EVERY 5 [...] of less than 7.0% ([facility]) documented in this encounter Care Teams Stave And Bolt Equalizer Relationship Specialty Start Date End Date Timmy Allen MD [address] [place] [address] PCP - General Family Medicine 09/09/16 documented as of this encounter
--- OUTSIDE RECORDS SUMMARY | 2023-09-07 10:29 | External Medical Summary ---
Author Name Unknown Address Unknown Organization [id number][place] [place] [address] [place] [address] Laboratory Report Ordering Provider Test Date Status TIFFANIE GAXIOLA 07/21/2023 14:39:35 Final Observation Date Value Abnormality Reference (Units ) Status HbA1C 07/21/2023 14:39:35 8.1 Above high normal 4. 0-5.6 (%) Final The use of HbA1c to monitor glycemic status is based on normal hemoglobin and HbA composition. This test should not be used in patients with abnormal hemoglobin that affects the half life of the red blood cell or the in vivo glycation rates. Glucose, estimated average 07/21/2023 14:39:35 186 Above high normal <126 (mg/dL) Kirill de la cruz Performing Location [facility] [place] [address] [facility] [address]
--- OUTSIDE RECORDS SUMMARY | 2023-09-07 10:29 | External Medical Summary ---
Author Name Unknown Address Unknown Organization [id number]:[facility] [place] [address] [place] [address] Laboratory Report Ordering Provider Test Date Status ALEJANDRO HERNÁNDEZ 07/21/2023 14:39:35 Final Observation Date Value Abnormality Reference (Units ) Status Triglyceride 07/21/2023 14:39:35 207 Above high normal <=174 (mg/dL) Final Triglyceride Reference Range s (mg/dL):
<150 Acceptable
150-174 Borderline high
175-499 High
>=500 Very high Cholesterol 07/21/2023 14:39:35 99 <200 (mg /dL) Final Total Cholesterol Reference Ranges (mg/dL):
<200 Desirable
200-239 Borderline high
>=240 High HDL 07/21/2023 14:39:35 31 Below low normal >39 (mg/dL) Final HDL Cholesterol Reference Ra nges (mg/dL):
>=60 High (Desirable)
<50 Low (Undesirable) For Females
<40 Low (Undesirable) For Males NON-HDL CHOLESTEROL 07/21/2023 14:39:35 68 <=159 (mg/dL) Final Non-HDL Cholesterol Referenc e Range (mg/dL):
<100 Target level for high risk ASCVD patient
<130 Optimal for general population
130-159 Near optimal for general population
160-189 Borderline High
190-219 High
>=220 Very High Performing Location [facility] - [address] [place] [address]
--- OUTSIDE RECORDS SUMMARY | 2023-09-07 10:29 | External Medical Summary | Summary of Care ---
Author Name Unknown Organization [facility] Address [address] [place] [address] Phone [phone] Care Team Providers Care Architect Intern Name Role Phone Timmy Chavez MD Primary Care Provider + Reason for Referral * Precert (Within 10 days (routine)) - Pending Review Specialty Diagnoses / Procedures Referred By Contac t Referred To Contact Cardiac Studies Diagnoses Hypertensive heart disease without congestive heart failure BENITES (dyspnea on exertion) Coronary artery disease involving [place] coronary artery of [place] heart without angina pectoris Procedures ECHO, STRESS (EXERCISE) W/CONTRAST Scot Vernon DO [address] [place] [address] Referral ID Status Reason Start Date Expiration Date Visits Requested Visits Authorized [id number] Pending Review Precert 07/22/2023 999 999 Reason for Visit * Reason Comments Follow Up Encounter Details Date Type Department Care Team (Late st Contact Info) Description 07/21/2023 3:30 PM EST Office Visit Cardiology, [facility] [address] [place] [address] Scot Vernon DO [address] [place] [address] Hypertensive heart disease without congestive heart failure*; Type 2 diabetes mellitus with hemoglobin A1c goal of less than 7.0% (HCC); BENITES (dyspnea on exertion); Coronary artery disease involving [place] coronary artery of [place] heart without angina pectoris Allergies Active Allergy Reactions Criticality Noted Date [...] deficiency anemia 12/11/2012 09/09/2016 Hypoglycemia 12/06/2012 09/09/[facility] Clinical Tri al [id number] 09/27/2012 11/23/2012 HTN, GOAL BELOW 140/80 01/17/201209/02 [...] mRNA, LNP-s, No Pre serve, 2-Dose Series (nChannel) 05/13/2021,08/18/2020,07/28/2020 H1N1 2009 Influenza, IM 03/30/2009 Hepatitis B, 20+ yrs 03/31/1995,10/28/1994,09/27 Pneumococcal Conjugate Vacci ne, 20-valent ([id number]) 11/03/2021 Seasonal Influenza, PF, 6 M & [...] on file documented as of this encounter Last Filed Vital Signs Vital Sign Reading Time Taken Comments Blood Pressure 130/74 07/21/2023 3:41 PM EST Pulse 76 07/21/2023 3:41 PM EST Temperature - - Respiratory Rate 14 07/21/2023 3:41 PM EST Oxygen Saturation - - Inhaled Oxygen Concentration - - Weight 73.5 kg (162 lb) 07/21/2023 3:41 PM EST Height - - Body Mass Index 25 05/16/2023 11:02 AM EST documented in this encounter Progress Notes * Scot Vernon DO - 07/21/2023 3:41 PM EST SUBJECTIVE: Patient returns today for follow up of resistant HTN, hypertensive heart disease, mild nonobstructive CAD with coronary calcifications per cardiac CT 2010, DM, and dyslipidemia. Voices concern regarding family member recently diagnosed with coronary disease. Requesting repeat coronary calcium score if possible. Notes mild dyspnea on exertion without chest discomfort. Denies lightheadedness, dizziness, syncope, or near syncope. No orthopnea, PND, or lower extremity edema. Tolerating medications listed below. Notes dietary indiscretions over the holidays with resultant elevated hemoglobin A1c. Blood pressure well controlled. No interim hospitalizations. ECG: Normal sinus rhythm, nonspecific ST abnormality. Exercise stress echo report summary August 24, 2019: No evidence of inducible ischemia at high workload. 2D echo 2011 per my report: The qualitative LV ejection fraction is 60-64% (normal). The LV wall thickness is mildly increased (concentric). The left atrium is mildly enlarged. The left ventricular diastolic function is moderately abnormal (grade II). No significant valvular disease is present. The examination is adequate to evaluate the referral indication. Compared to last available study changes are noted as follows: LVH is now mild. Cardiac CT [address] Corado's report: There is coronary atherosclerosis with <25% stenosis of the LAD, LCx and RCA. The Agaston calcium score is 100. Small loculated inferior pericardial effusion. Multiple small right and left calcified granulomas. Stress Echo 11/[address] Smith's report: Interpretation Summary: Left ventricular hypertrophy with strain is noted at rest EKG.. No symptomswere noted.. The stress test was terminated due to fatigue. Exercise capacity is above average .. Uninterpretable Stress EKG due to repolarization changes of Left ventricular hypertrophy.. The left ventricular wall motion is normal at rest.. The left ventricular ejection fraction increases normallywith stress.. The left ventricular wall motion with stress is normal.. The LV wall thickness is severely increased (concentric).. The left ventricular diastolic function is moderately abnormal (gradeII). ROS: All others negative other than those noted in the HPI. 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 Epididymal cyst N50.3 Low testosterone R79.89 HTN, goal below 140/90 I10 Well adult exam Z00.00 Hx of actinic keratosis Z87.2 Gastroenteritis K52.9 Chronic kidney disease, stage 3b (HCC) N18.32 Hypertension associated with stage 3b chronic kidney disease due to type 2 diabetes mellitus (HCC) E11.22, I12.9, N18.32 Social History Tobacco Use Smoking status: Never Smoker Smokeless tobacco: Never Used Tobacco comment: No Passive smoke exposure Substance Use Topics Alcohol use: No Drug use: No Review of patient's allergies indicates: Allergen Reactions Lisinopril Edema face/lips/tongue Lip swelling Current Outpatient Medications Medication Sig Dispense Refill CETIRIZINE HCL 10 MG PO TABS one tablet by mouth daily at night ASPIRIN 81 MG PO CHEW take one tablet daily 100 Tab 3 HM VITAMIN D3 2000 UNITS PO CAPS 1 CAPSULE DAILY VITAMIN B-12 1000 MCG PO TABS 1 TABLET DAILY fluticasone (FLONASE) 50 MCG/ACT nasal spray USE ONE SPRAY IN EACH NOSTRIL TWICE DAILY FOR ALLERGIES 1 Bottle 3 CPAP every night at bedtime. metFORMIN HCl 500 MG Oral Tablet (Glucophage) Take 1 Tablet by mouth 2 times a day with morning andevening meals. 180 Tablet 3 Fenofibrate Micronized 67 MG Oral Capsule Take 1 Capsule by mouth daily before breakfast. 90 Capsule 3 Terazosin HCl 1 MG Oral Capsule (Hytrin) TAKE TWO CAPSULES BY MOUTH ONCE DAILY AT BEDTIME 180 Capsule 3 Carvedilol 25 MG Oral Tablet (Coreg) TAKE ONE & ONE-HALF TABLETS BY MOUTH TWICE DAILY WITH MORNING AND EVENING MEALS 270 Tablet 3 Omeprazole 20 MG Oral Capsule Delayed Release (PriLOSEC) TAKE 1 CAP BY MOUTH DAILY. 90 Capsule 1 Levothyroxine Sodium 100 MCG Oral Tablet (Levoxyl) Take 1 Tablet by mouth in the morning. 30 minutes prior to breakfast or other meds. 90 Tablet 1 Spironolactone 25 MG Oral Tablet (Aldactone) One tablet daily 90 Tablet 3 Empagliflozin 25 MG Oral Tablet (Jardiance) Take 1 Tablet by mouth in the morning. 90 Tablet 3 Testosterone 20.25 MG/ACT (1.62%) Transdermal Gel (AndroGel Pump) Apply 3 Act topically to affectedarea in the morning. to clean, dry, unbroken skin on the shoulders or upper arms.. 225 g 1 amLODIPine Besylate 10 MG Oral Tablet (Norvasc) Take 1 Tablet by mouth in the morning. 90 Tablet 3 Rosuvastatin Calcium 5 MG Oral Tablet (Crestor) Take 1 Tablet by mouth in the morning. 90 Tablet 3 Trulicity 4.5 MG/0.5ML Subcutaneous Solution Pen-injector (Dulaglutide) Inject 1 pen once weekly 6 mL 3 No current facility-administered medications for this visit. OBJECTIVE/PHYSICAL EXAMINATION: BP 130/74 | Pulse 76 | Resp 14 | Wt 73.5 kg (162 lb) | BMI 25.00 kg/m | BSA 1.87 m General: NAD, AAO x3, well nourished. HEENT: Normocephalic. Atraumatic. Conjunctiva pink, no scleral icterus. No carotid bruits, the carotid upstrokes are brisk. No JVD. No HJR Heart: Regular normal S-1 and S-2 no S-3 or S-4 gallop. No murmurs or rubs appreciated. PMI is not displaced. No RV heave.Lungs: Clear bilateral without rales , rhonchi, or wheeze. Abdomen: Normal bowel sounds. Soft. Nontender. No masses or organomegaly. No abdominal bruits. Extremities: No clubbing, cyanosis, or edema.Pulses: radial=2/4, Dorsalis pedis =2/4, posterior tibial=2/4. Neuro: No focal deficits. ASSESSMENT: Resistant HTN with hypertensive heart disease - BP controlled Dyslipidemia, goal LDL less than 70mg/dL with hypertriglyceridemia - controlled Mild coronary disease per coronary CT 2011 - Agaston 100 Obstructive sleep apnea - tolerating CPAP Chronic kidney disease stage 3 Diabetes type II - uncontrolled with most recent hemoglobin A1c 10.1% Hypothyroidism PLAN: Echo, stress (exercise) w/contrast Ekg Continue current cardiovascular medications including terazosin, fenofibrate, amlodipine, rosuvastatin, spironolactone, carvedilol, and low-dose aspirin. Instructed to hold carvedilol morning of stress testing. He will take medication afterward. Encouraged patient to make dietary improvements. Further recommendations regarding exercise prescription pending review of exercise stress echo. All questions answered to patient's satisfaction. He is agreeable to the current plan, however, will report any change or decline in clinical status. Follow Up: Return in about 6 months (around 01/19/2024). I spent a total of 40-54 minutes (exact time 40 mins) on the date of service in preparation, delivery, and documentation of the care provided to Landon Ghosh Sr. excluding any time spent in the performance of separately billed services. Scot Vernon DO, [facility] Associate Cardiology - Hai Hernandez documented in this encounter Nursing Notes * Maria Luz Magaña LPN - 07/21/2023 3:40 PM EST Examination Room: 13 Name: Landon Sam Davina Garcia. Date of : 1965 Reason for Visit: Follow up Problems/Concerns: Discuss having a calcium score Interim Hosp(s): denies Chest Pain/SOB: denies MyChart Discussed: ALREADY ACTIVE Patient was instructed to not get up on the exam table until directed and assisted by their provider; patient is to remain seated in the chair/ wheelchair/ exam table for fall prevention and safety reasons. Patient is aware staff will assist stepping down off exam table with personnel. documented in this encounter Plan of Treatment Upcoming Encounters Date Type Department Care Team (Late st Contact Info) Description 08/12/2023 3:30 PM EDT [facility] [address] [facility] [place] [address] [place], [facility] [address] [facility] [place] [address] 10/07/2023 1:30 PM EDT Imaging Cardiac Studies, [facility] [address] [place] [address] 11/23/2023 11:40 AM EDT Office Visit Family Practice [facility] [address] [place] [address] Timmy Chavez MD [address] [place] [address] 05/17/2024 10:00 AM EST Office Visit [facility] [address] [facility] [place] [phone] Mariel Mendez DO [address] [place] [address] Scheduled Orders Name Type Priority Associated Diagnoses Orde r Schedule EKG EKG Routine Hypertensive heart disease without congestive heart failure Expected: 07/21/2023 (Approximate), Expires: 08/18/2024 ECHO, STRESS (EXERCISE) W/CONTRAST Echocardiology Routine Hypertensive heart disease without congestive heart failure BENITES (dyspnea on exertion) Coronary artery disease involving [place] coronary artery of [place] heart without angina pectoris Expected: 07/22/2023, Expires: 08/18/2024 Scheduled Procedures Name Priority Associated Diagnoses Date/Ti me COLONOSCOPY FLEXIBLE PROXIMA L DIAGNOSTIC Recall History of colonic polyps Health Maintenance Due Date Last Done Comments DXA Scan 05/16/2018 05/16/2017 Diabetic Eye Exam 11/18/2022 11/18/2021, , 01/16/2018, Additional history exists COVID-19 Vaccine ( season) 2023 05/13/2021, 08/18/2020, 07/28/2020 CKD HGB USE SMARTSET 61269 07/23/202307/23, 04/29/2021, 09/09/2016, Additional history exists Albumin/Creatinine Ratio 10/23/2023 023, 07/23/2022, 01/30/2021, Additional history exists CKD PHOS USE SMARTSET 69632 10/23/202309/28, 07/23/2022, 08/21/2021, Additional history exists TSH 10/23/2023 10/22/2022, 07/29, 07/02/2020, Additional history exists Depression Screening 11/04/2023 11/03/2022 Diabetic Foot Exam 11/04/2023 11/03/2022, 0 11/03/2021, 10/23/2020, Additional history exists HbA1c 11/05/2023 05/06/2023, 07/01, 03/12/2022, Additional history exists GFR 01/19/2024 07/21/2023, 09/28, 07/23/2022, Additional history exists DTaP,Tdap,and Td Vaccines [...] as of this encounter Visit Diagnoses Diagnosis Hypertensive heart disease without congestive heart failure- Primary Unspecified hypertensive heart disease without heart failure Type 2 diabetes mellitus with hemoglobin A1c goal of less than 7.0% ([facility]) BENITES (dyspnea on exertion) Other dyspnea and respiratory abnormality Coronary artery disease involving [place] coronary artery of [place] heart without angina pectoris documented in this encounter Care Teams Architect Intern Relationship Specialty Start Date End Date Timmy Chavez MD [address] [place] [address] PCP - General Family Medicine 09/09/16 documented as of this encounter"
--- OUTSIDE RECORDS SUMMARY | 2023-09-07 10:29 | External Medical Summary | Summary of Care ---
Author Name Unknown Organization [facility] Address [address] [place] [address] Phone [phone] Care Team Providers Care Medical Artist Name Role Phone Timmy Allen MD Primary Care Provider + Reason for Visit * Reason Onset Date Comments Medication Refill 06/16/2023 Encounter Details Date Type Department Care Team (Late st Contact Info) Description 06/16/2023 Refill Family Practice [facility] [address] [facility] [address] Timmy Allen MD [address] [facility] [place] [address] HTN, goal below 140/80 Allergies Active Allergy Reactions Criticality Noted Date Comments Lisinopril Edema face/lips/tongue High 11/28/2003 Lip swelling documented as of this encounter (statuses as of 06/17/2023) Medications Medication Sig Dispensed Refills Start Date [...] the morning. 90 Tablet 3 07/13/2022 Active Trulicity 4.5 MG/0.5ML Subcutaneous Solution Pen-injector (Dulaglutide)Indic ations:Type 2 diabetes mellitus with hemoglobin A1c goal of less than 7.0% (HCC) Inject 1 pen once weekly 6 mL 3 08/23/2022 Active metFORMIN HCl 500 MG Oral Tablet [...] the morning. 90 Tablet 3 06/17/2023 Active amLODIPine Besylate 10 MG Oral Tablet (Norvasc)Indicatio ns:HTN, goal below 140/80 Take 1 Tablet by mouth in the morning. 90 Tablet 2 04/25/2023 4 Discontinue d(Refill) documented as of this encounter (statuses as of 06/17/2023) Active Problems Problem Noted Date Diagnosed Date [...] as of this encounter (statuses as of 06/17/2023) Resolved Problems Problem Noted Date Diagnosed Date [...] deficiency anemia 12/11/2012 09/09/2016 Hypoglycemia 12/06/2012 09/09/[facility] Clinical Tri al [id number] 09/27/2012 11/23/2012 HTN, GOAL BELOW 140/80 01/17/201209/02 [...] as of this encounter (statuses as of 06/17/2023) Immunizations Name Administration Dates Next Due COVID-19 mRNA, LNP-s, No Pre serve, 2-Dose Series ([employer]) 05/13/2021,08/18/2020,07/28/2020 H1N1 2009 Influenza, IM 03/30/2009 Hepatitis B, 20+ yrs 03/31/1995,10/28/1994,09/27 Pneumococcal Conjugate Vacci ne, 20-valent ([id number]) 11/03/2021 Seasonal Influenza, PF, 6 M & [...] encounter Miscellaneous Notes * Telephone Encounter - Tin Hensley [facility] - 06/17/2023 4:28 PM ESTSigned Prescriptions: Disp Refills amLODIPine Besylate 10 MG Oral Tablet (Nor*90 Tab*3 Sig: Take 1 Tablet by mouth in the morning.Authorizing Provider: TIMMY ALLEN User: TIN HENSLEY documented in this encounter Plan of Treatment Upcoming Encounters Date Type Department Care Team (Late st Contact Info) Description 07/21/2023 3:30 PM EST Office Visit Cardiology, [facility] [address] [place] [address] Scot Vernon, DO [address] [place] [address] 08/09/2023 3:00 PM EDT Office Visit Nephrology, [facility] [address] [facility] [place], [place] [address] Nohemi Loredo MD [address] [place] [address] 08/12/2023 3:30 PM EDT Office Visit Pharmacy, [facility] [address] [place] [address] [facility] [address] [place] [address] 11/23/2023 11:40 AM EDT Office Visit Family Practice [facility] [address] [place] [address] Timmy Allen MD [address] [place] [address] 05/17/2024 10:00 AM EST Office Visit Sleep Disorders Ctr [facility] [address] [place] [phone] Mariel Mendez, DO [address] [place] [address] Scheduled Procedures Name Priority Associated Diagnoses Date/Ti me COLONOSCOPY FLEXIBLE PROXIMA L DIAGNOSTIC Recall History of colonic polyps Health Maintenance Due Date Last Done Comments DXA Scan 05/16/2018 05/16/2017 Diabetic Eye Exam 11/18/2022 11/18/2021, , 01/16/2018, Additional history exists COVID-19 Vaccine ( season) 2023 05/13/2021, 08/18/2020, 07/28/2020 GFR 04/24/2023 10/22/2022, 07/01, 03/12/2022, Additional history exists CKD HGB USE SMARTSET 16717 07/23/202307/23, 04/29/2021, 09/09/2016, Additional history exists Albumin/Creatinine Ratio 10/23/2023 023, 07/23/2022, 01/30/2021, Additional history exists CKD PHOS USE SMARTSET 29395 10/23/202[address] 10/2022, 07/23/2022, 08/21/2021, Additional history exists TSH 10/23/2023 10/22/2022, 07/29, 07/02/2020, Additional history exists Depression Screening 11/04/2023 11/03/2022 Diabetic Foot Exam 11/04/2023 11/03/2022, 0 11/03/2021, 10/23/2020, Additional history exists HbA1c 11/05/2023 05/06/2023, 07/01, 03/12/2022, Additional history exists DTaP,Tdap,and Td Vaccines (3 - Td or Tdap) 05/25/2026 05/25/2016, 11/01/2005, 10/28/1994 Lipid Panel 03/12/2027 03/12/2022, 02/0 07/2020, 03/13/2020, Additional history exists COLONOSCOPY-EVERY 5 YRS AGES 18-100 05/19/2028 05/19/2023, 05/19/2023, 12/27/2012, Additional history exists Hepatitis B Completed 03/31/1995, 060 05/1994, 10/28/1994, Additional history exists Fecal Occult [...] as of this encounter Visit Diagnoses Diagnosis HTN, goal below 140/80 Unspecified essential hypertension documented in this encounter Care Teams Medical Artist Relationship Specialty Start Date End Date Timmy Allen MD [address] [place] [address] PCP - General Family Medicine 09/09/16 documented as of this encounter
--- OUTSIDE RECORDS SUMMARY | 2023-09-07 10:29 | External Medical Summary | Summary of Care ---
Author Name Unknown Organization [facility] Address [address] [place] [address] Phone [phone] Care Team Providers Care Agronomy Teacher Name Role Phone Timmy Chavez MD Primary Care Provider + Reason for Visit * Reason Comments Return Visit 6 month return Encounter Details Date Type Department Care Team (Late st Contact Info) Description 05/20/2023 9:40 AM EST Office Visit [facility] [address] [place] [address] Timmy Chavez MD [address] [facility] [place] [address] Well adult exam*; Type 2 diabetes mellitus with hemoglobin A1c goal of less than 8.0% ([facility]); HTN, goal below 140/90; Polyp of colon, unspecified part of colon, unspecified type Allergies Active Allergy Reactions Criticality Noted Date Comments Lisinopril Edema face/lips/tongue High 11/28/2003 Lip swelling documented as of this encounter (statuses as of 05/31/2023) Medications Medication Sig Dispensed Refills Start Date [...] evening meals. 180 Tablet 3 08/23/2022 Active Testosterone 20.25 MG/ACT (1.62%) Transdermal Gel (AndroGel Pump)Indications:H ypogonadism male Apply 3 Act topically to affected area in the morning. to clean, dry, unbroken skin on the shoulders or upper arms.. 225 g 1 11/10/2022 Active Fenofibrate Micronized 67 MG Oral CapsuleIndications [...] tablet daily 90 Tablet 3 04/26/2023 Active amLODIPine Besylate 10 MG Oral Tablet (Norvasc)Indicatio ns:HTN, goal below 140/80 Take 1 Tablet by mouth in the morning. 90 Tablet 2 04/25/2023 Active Empagliflozin 25 MG Oral Tablet (Jardiance) Take 1 Tablet by mouth in the morning. 90 Tablet 3 04/25/2023 Active Albuterol Sulfate HFA 108 (90 Base) MCG/ACT Inhalation Aerosol SolutionIndication s:Asthma, allergic INHALE TWO PUFFS BY MOUTH 4 TIMES DAILY NEEDED FOR CHEST CONGESTION OR ASTHMA 54 g 3 10/08/2020 3 Discontinue d(Medicatio n List Clean Up) documented as of this encounter (statuses as of 05/31/2023) Active Problems Problem Noted Date Diagnosed Date [...] surgery 05/21 colon mult polyps PATH PEND 2012 colonoscopy WNL. HTN, goal below 140/90 08/04/2015 [...] as of this encounter (statuses as of 05/31/2023) Resolved Problems Problem Noted Date Diagnosed Date [...] deficiency anemia 12/11/2012 09/09/2016 Hypoglycemia 12/06/2012 09/09/2016 [facility] HTN3 Clinical Tri al [id number] 09/27/2012 11/23/2012 HTN, GOAL BELOW 140/80 01/17/201209/02 Overview: Per HTN Protocol #27. Sleep apnea 02/08/2011 05/07/2011 HTN, GOAL BELOW 130/80 06/26/200901/19 Overview: Per HTN Taxonomy. PURE HYPERCHOLESTEROLEM 03/05/200504/29 Overview: Per Lipid Taxonomy. ACUTE SINUSITIS NOS 05/17/2004 12/28/19 ACUTE URI NOS 05/17/2004 12/27/2004 Unspecified viral [...] as of this encounter (statuses as of 05/31/2023) Immunizations Name Administration Dates Next Due COVID-19 mRNA, LNP-s, No Pre serve, 2-Dose Series ([employer]) 05/13/2021,08/18/2020,07/28/2020 H1N1 2009 Influenza, IM 03/30/2009 Hepatitis B, 20+ yrs 03/31/1995,10/28/1994,09/27 Pneumococcal Conjugate Vacci ne, 20-valent ([id number]) 11/03/2021 Seasonal Influenza, PF, 6 M & [...] Date Smoking Tobacco: Never Smokeless Tobacco: Never Tobacco Cessation:Counseling Given: Not Answered Comments:No Passive smoke exposure Alcohol Use Standard Drinks/Week Comments No 0 [...] 3:49 PM EDT Sexual Orientation Straight 11/03/2022 3 :49 PM EDT Job Start Date Occupation Industry Not on file Not on file Not on file documented as of this encounter Last Filed Vital Signs Vital Sign Reading Time Taken Comments Blood Pressure 112/68 05/20/2023 10:09 AM EST Pulse 84 05/20/2023 10:09 AM EST Temperature - - Respiratory Rate 20 05/20/2023 10:09 AM EST Oxygen Saturation 98% 05/20/2023 10:09 AM EST Inhaled Oxygen Concentration - - Weight 75 kg (165 lb 5 oz) 05/20/2023 10:[address] Height - - Body Mass Index 25.51 05/16/2023 11:02 AM EST documented in this encounter Progress Notes * Timmy Chavez MD - 05/20/2023 10:44 AM EST SUBJECTIVE: Landon Ghosh Sr. is a 58 year old male here for Return Visit (6 month return) . Here for CPE No fever, chills, chest pain, shortness of breath, headache, nausea, vomit, diarrhea, constipation or vision changes No polyuria/dipsia. Apprec MTM appt today, colonoscopy yesterday Sugars high--not following DM diet, not exercising ROS: Negative except above. Past Medical History: Diagnosis Date Allergic rhinitis Benign neoplasm of colon 12/27/12 COLONOSCOPY FLEXIBLE PROXIMAL DIAGNOSTIC performed by Ree Tovar DO at ENDOSCOPY [facility],HYPERPLASTIC POLYPS REPEAT COLONOSCOPY IN 10 YEAR COVID-19 virus infection 04/28/2020 Dyslipidemia, goal LDL below 100 05/15/2009 Per Lipid Taxonomy. Epididymal cyst 06/18/2014 Hematospermia HTN, goal below 140/90 08/04/2015 Per HTN Protocol #27. Hypertensive heart disease 04/12/2012 Hypogonadism male 12/06/2012 Hypothyroidism due to acquired atrophy of thyroid Intermittent asthma with reliever use up to twice per week 08/11/2012 Other anterior pituitary disorders (HCC) 03/14/2013 Severe obstructive sleep apnea 05/07/2011 CPAP 8 cwp AHI 44 T&B Medical Type 2 diabetes mellitus with hemoglobin A1c goal of less than 7.0% (HCC) 03/27/2009 Per Diabetes Taxonomy. ICD-10 update of inactive term Type 2 diabetes mellitus with hemoglobin A1c goal of less than 8.0% (HCC) 03/27/2009 Per Diabetes Taxonomy. 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 (HCC) 01/22/2013 Type 2 DM with CKD stage 3 and hypertension (HCC) 05/03/2022 Well adult exam 09/09/2016 Hx growth hormone as child Past Surgical History: Procedure Laterality Date COLONOSCOPY, DIAGNOSTIC (RECTUM) 12/27/2012 COLONOSCOPY FLEXIBLE PROXIMAL DIAGNOSTIC performed by Ree Tovar DO at ENDOSCOPY [facility],HYPERPLASTIC POLYPS REPEAT COLONOSCOPY IN 10 YEARS EGD, FLEXIBLE, DIAGNOSTIC 08/28/2013 ESOPHAGOGASTRODUODENOSCOPY (EGD), FLEXIBLE, TRANSORAL, DIAGNOSTIC performed by Ree Tovar DO at ENDOSCOPY [facility] MISCELLANEOUS ORDER ([facility] ONLY) nose and arm reset after dislocations VASECTOMY 1998 Dr. 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 +grandson Arturo Other Topics Concern Not on file Social History Narrative Likes--metal detecting [employer] weekly. . Exercise. Social Determinants of Health Financial Resource Strain: Not on file Food Insecurity: No Food Insecurity (11/03/2022) Hunger Vital Sign Worried About Running Out of Food in the Last Year: Never true Ran Out of Food in the Last Year: Never true Transportation Needs: Not on file Physical Activity: Not on file Stress: Not on file Social Connections: Not on file Intimate Partner Violence: Not on file Housing Stability: Not on file Family History Problem Relation Age of Onset Allergies Mother angioedema from ibuprofen Diabetes Mother lives in [place] Hypertension Father Endocrine Disorder Father Hyperlipidemia Endocrine Disorder Sister Hypothyroidism Allergies Daughter Allergies Son Current Outpatient Medications Medication Sig Dispense Refill [...] Bottle 3 CPAP every night at bedtime. Rosuvastatin Calcium 5 MG Oral Tablet (Crestor) Take 1 Tablet by mouth in the morning. 90 Tablet 3 Trulicity 4.5 MG/0.5ML Subcutaneous Solution Pen-injector (Dulaglutide) Inject 1 pen once weekly 6 mL 3 metFORMIN HCl 500 MG Oral Tablet (Glucophage) Take 1 Tablet by mouth 2 times a day with morning andevening meals. 180 Tablet 3 Testosterone 20.25 MG/ACT (1.62%) Transdermal Gel (AndroGel Pump) Apply 3 Act topically to affectedarea in the morning. to clean, dry, unbroken skin on the shoulders or upper arms.. 225 g 1 Fenofibrate Micronized 67 MG Oral Capsule Take [...] (Aldactone) One tablet daily 90 Tablet 3 amLODIPine Besylate 10 MG Oral Tablet (Norvasc) Take 1 Tablet by mouth in the morning. 90 Tablet 2 Empagliflozin 25 MG Oral Tablet (Jardiance) Take 1 Tablet by mouth in the morning. 90 Tablet 3 No current facility-administered medications for this visit. Physical: BP 112/68 | Pulse 84 | Resp 20 | Wt 75 kg (165 lb 5 oz) | SpO2 98% | BMI 25.51 kg/m | BSA 1.89 m General-No apparent Distress Head, Eyes, Ears, Nose, Throat--Normocephalic, atraumatic Neck-Supple Lymph-no lymphadenopathy Lungs-Clear to Auscultation bilaterally Cardiovascular--Regular rate & Rhythm, +s1, s2, no murmur Abdomen-soft, nontender, nondistended + bowel sounds Extremities--no edema Neuro-alert & oriented x3 (Z00.00) Well adult exam (primary encounter diagnosis) Plan: counseled on diet/exercise Shots had flu, rsv Iticp-RIH_-v/u path report likely will need 3-5 y f/u Prostate PSA UTD (E11.9) Type 2 diabetes mellitus with hemoglobin A1c goal of less than 8.0% (HCC) Plan: LIPID PANEL WITH DIRECT LDL IF TG IS HIGH Likely needs insulin -declined today, wants TLC trial F/u MTM 3mo (I10) HTN, goal below 140/90 Plan: cont mgmt (K63.5) Polyp of colon, unspecified part of colon, unspecified type Plan: f/u per path report (This note was completed using the dictation program Fluency Direct. As such, there may be misspellings, word substitutions, or other variations that should not change the essence of the clinical content of this encounter note.If there is need for further clarification, please direct questions to the provider listed above.) Timmy Chavez MD documented in this encounter Nursing Notes * Tootie Dillon LPN - 05/20/2023 10:09 AM EST The patient has been properly identified by confirmation of name and date of . Chief Complaint Patient presents with Return Visit 6 month return documented in this encounter Plan of Treatment Upcoming Encounters Date Type Department Care Team (Late st Contact Info) Description 08/09/2023 3:00 PM EDT [facility] [address] [place] [address] Nohemi Loredo MD [address] [facility] [place] [address] 08/12/2023 3:30 PM EDT Office Visit Pharmacy, [facility] [address] [place] [address] [facility] [address] [place] [address] 11/23/2023 11:40 AM EDT Office Visit Family Practice [facility] [address] [place] [address] Timmy Chavez MD [address] [place] [address] 05/17/2024 10:00 AM EST Office Visit [facility] [address] [place] [phone] Mariel Mendez DO [address] [place] [address] Scheduled Orders Name Type Priority Associated Diagnoses Orde r Schedule LIPID PANEL WITH DIRECT LDL IF TG IS HIGH Lab Routine Type 2 diabetes mellitus with hemoglobin A1c goal of less than 8.0% ([facility]) Expected: 05/20/2023, Expires: 05/20/2024 Health Maintenance Due Date Last Done Comments Cologuard 02/03/2008 Sigmoidoscopy 02/03/2008 Fecal Occult Blood Test 12/15/2013 12/15/2012 DXA Scan 05/16/2018 05/16/2017 Diabetic Eye Exam 11/18/2022 11/18/2021, , 01/16/2018, Additional history exists COVID-19 Vaccine ( season) 2023 05/13/2021, 08/18/2020, 07/28/2020 GFR 04/24/2023 10/22/2022, 07/01, 03/12/2022, Additional history exists CKD HGB USE SMARTSET 64563 07/23/202307/23, 04/29/2021, 09/09/2016, Additional history exists Albumin/Creatinine Ratio 10/23/2023 023, 07/23/2022, 01/30/2021, Additional history exists CKD PHOS USE SMARTSET 10849 10/23/202309/28, 07/23/2022, 08/21/2021, Additional history exists TSH 10/23/2023 10/22/2022, 07/29, 07/02/2020, Additional history exists Depression Screening 11/04/2023 11/03/2022 Diabetic Foot Exam 11/04/2023 11/03/2022, 0 11/03/2021, 10/23/2020, Additional history exists HbA1c 11/05/2023 05/06/2023, 07/01, 03/12/2022, Additional history exists DTaP,Tdap,and Td Vaccines (3 - Td or Tdap) 05/25/2026 05/25/2016, 11/01/2005, 10/28/1994 Lipid Panel 03/12/2027 03/12/2022, 07/2020, 03/13/2020, Additional history exists Colonoscopy 05/19/2033 05/19/2023, 04/30, 12/27/2012, Additional history exists Colorectal Cancer Screening 05/19/2033 Hepatitis B Completed 03/31/1995, 05/1994, 10/28/1994, Additional history exists Zoster Vaccines Completed 12/19/2018, 09/15/2018 Pneumococcal Vaccine: Pediatrics (0 to 5 Years) and At-Risk Patients (6 to 64 Years) Completed 11/03/2021, 03/05/2002 Influenza Vaccine (FLU shot) Completed 10/2022, 03/16/2022, 02/17/2021, Additional history exists GARDASIL-HPV IMMUNIZATION SERIES Aged Out No longer eligible based on patient's age to complete this topic MENINGOCOCCAL (MENACTRA/MENVEO) Aged Out No longer eligible based on patient's age to complete this topic documented as of this encounter Medical Devices Not on filedocumented as of this encounter Visit Diagnoses Diagnosis Well adult exam- Primary Routine general medical examination at a health care facility Type 2 diabetes mellitus with hemoglobin A1c goal of less than 8.0% (HCC) HTN, goal below 140/90 Unspecified essential hypertension Polyp of colon, unspecified part of colon, unspecified type documented in this encounter Care Teams Agronomy Teacher Relationship Specialty Start Date End Date Timmy Chavez MD [address] [place] [address] PCP - General Family Medicine 09/09/16 documented as of this encounter"
--- OUTSIDE RECORDS SUMMARY | 2023-09-07 10:29 | External Medical Summary | Summary of Care ---
Author Name Unknown Organization [facility] Address [address] [place] [address] Phone [phone] Care Team Providers Care Choral Director Name Role Phone Timmy Allen MD Primary Care Provider + Reason for Visit * Reason Onset Date Comments Medication Refill 06/08/2023 Encounter Details Date Type Department Care Team (Late st Contact Info) Description 06/08/2023 Refill Family Practice [facility] [address] [facility] [id number] Timmy Allen MD [address] [place] [address] Hypogonadism male; HTN, goal below 140/80 Allergies Active Allergy Reactions Criticality Noted Date Comments Lisinopril Edema face/lips/tongue High 11/28/2003 Lip swelling documented as of this encounter (statuses as of 06/09/2023) Medications Medication Sig Dispensed Refills Start Date [...] upper arms.. 225 g 1 06/09/2023 Active Testosterone 20.25 MG/ACT (1.62%) Transdermal Gel (AndroGel Pump)Indications:H ypogonadism male Apply 3 Act topically to affected area in the morning. to clean, dry, unbroken skin on the shoulders or upper arms.. 225 g 1 11/10/2022 4 Discontinue d(Refill) documented as of this encounter (statuses as of 06/09/2023) Active Problems Problem Noted Date Diagnosed Date [...] as of this encounter (statuses as of 06/09/2023) Resolved Problems Problem Noted Date Diagnosed Date [...] deficiency anemia 12/11/2012 09/09/2016 Hypoglycemia 12/06/2012 [facility]09/[facility]N3 Clinical Tri al [id number] 09/27/2012 11/23/2012 HTN, GOAL BELOW 140/80 01/17/201209/02 [...] as of this encounter (statuses as of 06/09/2023) Immunizations Name Administration Dates Next Due COVID-19 mRNA, LNP-s, No Pre serve, 2-Dose Series ([email or web address]) 05/13/2021,08/18/2020,07/28/2020 H1N1 2009 Influenza, IM 03/30/2009 Hepatitis B, 20+ yrs 03/31/1995,10/28/1994,09/27 Pneumococcal Conjugate Vacci ne, 20-valent ([id number]) 11/03/2021 Seasonal Influenza, PF, 6 M & [...] encounter Miscellaneous Notes * Telephone Encounter - Timmy Allen MD - 06/09/2023 3:02 PM ESTSigned Prescriptions: Disp Refills Testosterone 20.25 MG/ACT (1.62%) Transder*225 g 1 Sig: Apply 3 Act topically to affected area in the morning. to clean, dry, unbroken skin on the shoulders or upper arms.. Authorizing Provider: TIMMY ALLEN Refused Prescriptions: Disp Refills amLODIPine Besylate 10 MG Oral Tablet (Nor*90 Tab *2 Sig: Take 1 Tablet by mouth in the morning. Refused By: JOSE MARRUFO Reason for Refusal: Too soon Reason for Refusal Comment: 90 w/ 2 refill sent 04/25/23 * Telephone Encounter - Jose Marrufo, [facility] - 06/09/2023 11:59 AM EST Pending Prescriptions: Disp Refills Testosterone 20.25 MG/ACT (1.62%) Transder*225 g 1 Sig: Apply 3 Act topically to affected area in the morning. to clean, dry, unbroken skin on the shoulders or upper arms.. Refused Prescriptions: Disp Refills amLODIPine Besylate 10 MG Oral Tablet (Nor*90 Tab*2 Sig: Take 1 Tablet by mouth in the morn ing. Refused By: JOSE MARRUFO Reason for Refusal: Too soon Reason for Refusal Comment: 90 w/ 2 refill sent 04/25/23 * Telephone Encounter - Jose Marrufo, [facility] - 06/09/2023 11:58 AM EST I have reviewed the patients controlled substance dispensing history in the Prescription Drug Monitoring Program in compliance with the [facility] regulations before prescribing a controlled substance. PDMP checked on 06/09/2023. Pending Prescriptions: Disp Refills Testosterone 20.25 MG/ACT (1.62%) Transde*225 g 1 Sig: Apply 3 Act topically to affected area in the morning. to clean, dry, unbroken skin on the shoulders or upper arms.. Refused Prescriptions: Disp Refills amLODIPine Besylate 10 MG Oral Tablet (Nor*90 Tab*2 Sig: Take 1 Tablet by mouth in the morning. Refused By: JOSE MARRUFO Reason for Refusal: Too soon Reason for Refusal Comment: 90 w/ 2 refill sent 04/25/23 Last Visit: 05/20/2023 (in office), 08/28/2019 (telemedicine) Next Visit: 11/23/2023 Date medication was last filled: 03/18/23 Date medication is due for refill: 05/15/23 Pharmacy: [facility] [facility] [place] Is this request for a controlled substance? Yes and Urine Drug Screen Not completed Toxicology results: No results found. However, due to the size of the patient record, not all encounters were searched.Please check Results Review for a complete set of results. Please approve if appropriate. Thanks, Jose Marrufo, PharmD Clinical Pharmacist [facility] ([facility]) (formerly Telepharmacy) [phone] 06/09/2023, 11:58 AM documented in this encounter Plan of Treatment Upcoming Encounters Date Type Department Care Team (Late st Contact Info) Description 08/09/2023 3:00 PM EDT Office Visit Nephrology, [facility] [address] [place] [address] Nohemi Loredo MD 200 [facility] [place] [address] 08/12/2023 3:30 PM EDT [facility] [address] [place] [address] [facility] [address] [place] [address] 11/23/2023 11:40 AM EDT Office Visit Family Practice [facility] [place] [address] [place] [address] Timmy Allen MD [address] [place] [address] 05/17/2024 10:00 AM EST Office Visit [facility] [place] [address] [place] [phone] Mariel Mendez, [address] [place] [address] Scheduled Procedures Name Priority Associated Diagnoses Date/Ti me COLONOSCOPY FLEXIBLE PROXIMA L DIAGNOSTIC Recall History of colonic polyps Health Maintenance Due Date Last Done Comments DXA Scan 05/16/2018 05/16/2017 Diabetic Eye Exam 11/18/2022 11/18/2021, , 01/16/2018, Additional history exists COVID-19 Vaccine ( season) 2023 05/13/2021, 08/18/2020, 07/28/2020 GFR 04/24/2023 10/22/2022, 07/01, 03/12/2022, Additional history exists CKD HGB USE SMARTSET 67636 07/23/202307/23, 04/29/2021, 09/09/2016, Additional history exists Albumin/Creatinine Ratio 10/23/2023 023, 07/23/2022, 01/30/2021, Additional history exists CKD PHOS USE SMARTSET 25674 10/23/202309/28, 07/23/2022, 08/21/2021, Additional history exists TSH [...] as of this encounter Visit Diagnoses Diagnosis Hypogonadism male Other testicular hypofunction HTN, goal below 140/80 Unspecified essential hypertension documented in this encounter Care Teams Choral Director Relationship Specialty Start Date End Date Timmy Allen MD [address] [facility] [place] [address] PCP - General Family Medicine 09/09/16 documented as of this encounter
--- OUTSIDE RECORDS SUMMARY | 2023-09-07 10:29 | External Medical Summary | Summary of Care ---
Author Name Unknown Organization [facility] Address [address] [place] [address] Phone [phone] Care Team Providers Care Director Long Term Care Name Role Phone Timmy Chavez MD Primary Care Provider + Reason for Visit * Reason Onset Date Comments Medication Refill 07/14/2023 Encounter Details Date Type Department Care Team (Late st Contact Info) Description 07/14/2023 Refill Cardiology, [facility] [address] [facility] [place] [address] [address] [place], [address] [place] [address] Dyslipidemia, goal LDL below 100 Allergies Active Allergy Reactions Criticality Noted Date Comments Lisinopril Edema face/lips/tongue High 11/28/2003 Lip swelling documented as of this encounter (statuses as of 07/18/2023) Medications Medication Sig Dispensed Refills Start Date [...] once weekly 6 mL 3 07/15/2023 Active Rosuvastatin Calcium 5 MG Oral Tablet (Crestor)Indicatio ns:Dyslipidemia, goal LDL below 100 Take 1 Tablet by mouth in the morning. 90 Tablet 3 07/13/2022 4 Discontinue d(Refill) documented as of this encounter (statuses as of 07/18/2023) Active Problems Problem Noted Date Diagnosed Date [...] as of this encounter (statuses as of 07/18/2023) Resolved Problems Problem Noted Date Diagnosed Date [...] deficiency anemia 12/11/2012 09/09/2016 Hypoglycemia 12/06/2012 09/09/[facility] Clinical Tri al [id number] 09/27/2012 11/23/2012 HTN, GOAL BELOW 140/80 01/17/201209/02 [...] as of this encounter (statuses as of 07/18/2023) Immunizations Name Administration Dates Next Due COVID-19 mRNA, LNP-s, No Pre serve, 2-Dose Series ([employer]) 05/13/2021,08/18/2020,07/28/2020 H1N1 2009 Influenza, IM 03/30/2009 Hepatitis B, 20+ yrs 03/31/1995,10/28/1994,09/27 Pneumococcal Conjugate Vacci ne, 20-valent ([id number]) 11/03/2021 Seasonal Influenza, PF, 6 M & [...] encounter Miscellaneous Notes * Telephone Encounter - Braxton Fonseca PA-C - 07/18/2023 3:51 PM EST Signed Prescriptions: Disp Refills Rosuvastatin Calcium 5 MG Oral Tablet (Cre*90 Tab*3 Sig: Take 1 Tablet by mouth in the morning. Authorizing Provider: BRAXTON FONSECA * Telephone Encounter - Maria Luz Magaña LPN - 07/15/2023 3:45 PM ESTPending Prescriptions: Disp Refills Rosuvastatin Calcium 5 MG Oral Tablet (Cre*90 Tab*3 Sig: Take 1 Tablet by mouth in the morning. * Telephone Encounter - Maria Luz Magaña LPN - 07/15/2023 3:42 PM EST Did you pend patient's preferred pharmacy and medication before forwarding?yes Pharmacy: [facility]- [place] Pending Prescriptions: Disp Refills Rosuvastatin Calcium 5 MG Oral Tablet (Cr*90 Tab*3 Sig: Take 1 Tablet by mouth in the morning. Last Visit: 01/19/2023 (in office), Visit date not found (telemedicine) Next Visit: 07/21/2023 If no future appointments scheduled, and last appointment is greater than a year ago, please schedule patient for a follow-up appointment Last date the medication was ordered: 07/13/2022 Is this request for a controlled substance? NO Urine Drug Screen:No results found. However, due to the size of the patient record, not all encounters were searched. Please check Results Review for a complete set of results. Patient Phone Numbers mobile [phone] Labs: Lab Results Component Value Date/Time CREAT 1.6 (H) 10/22/2022 07:39 AM CREAT 1.60 (A) 04/29/2021 12:00 AM CREAT 1.4 (H) 07/19/2018 08:34 AM POTASSIUM 4.8 10/22/2022 07:39 AM POTASSIUM 4.9 08/21/2021 12:00 AM POTASSIUM 4.8 07/19/2018 08:34 AM TSH 2.53 10/22/2022 07:39 AM TSH 3.25 08/21/2021 12:00 AM TSH 1.94 03/02/2017 08:26 AM LDLCALC 53 07/02/2020 12:00 AM LDLCALC UNINTERPRETABLE RESULT 07/19/2018 08:34 AM LDLDIRECT 59 03/12/2022 07:52 AM LDLDIRECT 55 07/19/2018 08:34 AM LDLDIRECT 37 10/22/2011 12:08 PM ALT 24 10/22/2022 07:39 AM ALT 27 04/29/2021 12:00 AM ALT 49 07/19/2018 08:34 AM HGBA1C 10.1 (H) 05/06/2023 09:40 AM HGBA1C 8.3 (H) 01/13/2022 12:00 AM HGBA1C 9.9 (H) 07/19/2018 08:34 AM documented in this encounter Plan of Treatment Upcoming Encounters Date Type Department Care Team (Late st Contact Info) Description 07/21/2023 3:30 PM EST Office Visit Cardiology, [facility] [address] [place] [address] Scot Vernon, DO [address] [place] [address] 08/12/2023 3:30 PM EDT Office Visit Pharmacy, [facility] [address] [place] [address] [facility] [address] [place] [address] 11/23/2023 11:40 AM EDT Office Visit Family Practice [facility] [address] [place] [address] Timmy Chavez MD [address] [place] [address] 05/17/2024 10:00 AM EST Office Visit Sleep Disorders Ctr [facility] [address] [place] [id number] Mariel Mendez, DO [address] [place] [address] Scheduled Procedures Name Priority Associated Diagnoses Date/Ti me COLONOSCOPY FLEXIBLE PROXIMA L DIAGNOSTIC Recall History of colonic polyps Health Maintenance Due Date Last Done Comments DXA Scan 05/16/2018 05/16/2017 Diabetic Eye Exam 11/18/2022 11/18/2021, , 01/16/2018, Additional history exists COVID-19 Vaccine ( season) 2023 05/13/2021, 08/18/2020, 07/28/2020 GFR 04/24/2023 10/22/2022, 07/01, 03/12/2022, Additional history exists CKD HGB USE SMARTSET 15289 07/23/202307/23, 04/29/2021, 09/09/2016, Additional history exists Albumin/Creatinine Ratio 10/23/2023 023, 07/23/2022, 01/30/2021, Additional history exists CKD PHOS USE SMARTSET 90915 10/23/202309/28, 07/23/2022, 08/21/2021, Additional history exists TSH [...] as of this encounter Visit Diagnoses Diagnosis Dyslipidemia, goal LDL below 100 Other and unspecified hyperlipidemia documented in this encounter Care Teams Director Long Term Care Relationship Specialty Start Date End Date Timmy Chavez MD [address] [place] [address] PCP - General Family Medicine 09/09/16 documented as of this encounter
--- OUTSIDE RECORDS SUMMARY | 2023-09-07 10:29 | External Medical Summary | Summary of Care ---
Author Name Unknown Organization [facility] Address [address] [place] [address] Phone [phone] Care Team Providers Care Audio/Video Engineer Name Role Phone Timmy Chavez MD Primary Care Provider + Reason for Visit * Reason Comments Dosage Adjustment In Person (Anticoag Cl inic) Diabetes Follow-Up Encounter Details Date Type Department Care Team (Late st Contact Info) Description 05/20/2023 10:00 AM EST [facility] [address] [facility] [address] [facility] [address] [place] [address] Type 2 diabetes mellitus with hemoglobin A1c goal of less than 8.0% ([facility])*; DM type 2 nursing care encounter ([facility]) Allergies Active Allergy Reactions Criticality [...] 11/10/2022 Active Fenofibrate Micronized 67 MG Oral CapsuleIndications:D [...] deficiency anemia 12/11/2012 09/09/2016 Hypoglycemia 12/06/2012 09/09/2016 [facility] HTN3 Clinical Tri al [id number] 09/27/2012 11/23/2012 HTN, GOAL BELOW 140/80 01/17/201209/02 [...] mRNA, LNP-s, No Pre serve, 2-Dose Series ([employer]) 05/13/2021,08/18/2020,07/28/2020 Diptheria/Tetanus (Adult) 10/28/1994 H1N1 2009 Influenza, IM 03/30/2009 Hepatitis B Vaccine 10/28/1994,09/27/1994 Hepatitis B, 20+ yrs 03/31/1995,10/28/1994,09/27 MMR - Measles/Mumps/Rubella Vaccine 01/28/1990 Pneumococcal Conjugate Vacci ne, 20-valent ([id number]) 11/03/2021 Pneumococcal Polysaccharide PPV23 (Pneumovax) 03/05/2002 Seasonal Influenza Virus Vac cine, Unspecified Formulation 03/11/1998,03/13/1997 Seasonal Influenza, PF, 6 M & above, IM , (FluLaval or Fluzone) 2023,03/16/2022,02/17/2021,03/19,03/12/2019,03/06/2018 Seasonal Influenza, Quadriva lent, No Preserve, IM 02/16/2017,03/10/2015 Seasonal Influenza, Split, I IV3, With Preserve, Inj 03/01/2014,02/15/2013,02/08/2012,03/04,02/26/2010,02/27/2009,04/01/2008 ,04/18/2007,03/07/2006,03/04/2005,03/30,03/26/2003,03/05/2002, 1,04/27/2000,03/09/1999 TDAP (age 10 and older)(Boostrix) 05/25/2016 TDAP [...] on file documented as of this encounter Patient Instructions * Patient Instructions* Cookie Ortiz, [facility] - 05/20/2023 10:07 AM EST Images from the original note were not included. Diabetic Retinopathy: Evaluating Your Eyes Diabetic retinopathy is a condition that happens when diabetes damages blood vessels in the rear ofthe eye. It can lead to vision loss. To help catch it early, have a complete dilated eye exam at least once a year. During the exam, the eye healthcare provider will review your medical history, examine your eyes, and check your vision. Women who are and have pre-existing type 1 or type 2 diabetes have an increased risk of retinopathy. Women with diabetes should have an eye exam before or in the first trimester. They should continue to be monitored every trimester and for 1 year after delivery, depending on the severity of the retinopathy. The retina is the light-sensitive part of the eye that allows you to see. High blood sugar can damage blood vessels of the retina and cause them to leak or bleed. This damage can lead to abnormal blood vessel growth. This condition is called diabetic retinopathy. You may not have symptoms early in the disease. Later, there may be floaters, blurred vision, or poor night vision. There may also be partial or complete vision loss. Early cases of diabetic retinopathy can be treated by carefully controlling blood sugar, blood pressure, and cholesterol. Surgery or laser treatments may help restore lost vision. Laser surgery can shrink abnormal blood vessels or close ones that are leaking. Medicines injected in the eye can help decrease swelling of the retina. Home care Take all medicines, including insulin or oral diabetic medicine, exactly as prescribed. Follow the diet advised by your healthcare provider. If you have high cholesterol, follow a low-fat, low-cholesterol diet. Monitor blood sugars as advised. Try to achieve your ideal weight. If you smoke, quit smoking. Tobacco use worsens the effect of diabetes on your blood vessels. If you have high blood pressure, consider buying an automatic blood pressure machine. These are available at most pharmacies. Use this to monitor your blood pressure. Report your blood pressure readings to your healthcare provider. Exercise regularly. Follow-up care Follow up with your healthcare provider, or as advised. You must have a complete eye exam at least once a year, more often if needed. Untreated diabetic retinopathy can lead to complete loss of vision. Occupational therapists can help you adapt to any vision loss you have, including learning techniques to safely administer insulin. When to seek medical advice Call your healthcare provider right away if any of these occur. Increasing blurriness or any sudden changes in your vision Sudden flashes of light inside your eye New floaters (small dots or strings that seem to be moving across your field of vision) Eye pain, redness, or discharge from your eyelid New dark spots appearing in your field of vision Halos around lights Dimness of vision Partial or complete loss of vision Women with diabetes should have a complete eye exam before becoming , or as soon as possible when they find out they are . Retinopathy sometimes worsens during . Your eye exam Your eye healthcare provider uses an eye chart and other tools to check your vision. Then he or sheexamines your eyes for signs of disease. You are given eye drops to widen (dilate) your pupils. Youmay have one or more of the following tests: Tonometry to measure fluid pressure inside the eye. Slit lamp exam to allow the healthcare provider to view the structures of your eye. Ultrasound to create an image of the eye using sound waves. Ultrasound may be used if blood is found in the clear gel that fills the eye (vitreous). Ocular coherence tomography (OCT) to create an image of the retina using light waves. This shows ifthere is fluid leaking into certain parts of the eye. It can also measure the thickness of the retina. Fluorescein angiography This test may be done to check the health of the inside lining of the eye (retina). It also checks the tiny blood vessels (capillaries) that carry blood to the retina. During the test: Photographs are taken of the retina. A dye is then injected into the bloodstream through the arm or hand. The dye travels to the capillaries in the eye. More photographs are taken of the retina. The dye causes the capillaries to stand out on the photographs. You may feel brief nausea during the procedure. For a few hours after the test, your skin, eyes, and urine may appear yellow. Talk with your healthcare provider for more information about this test. Date Last Reviewed: 10/29/201519999611-6571 [employer]. [address] [place] [address]. All rights reserved. This information is not intended as a substitute for professional medical care. Always follow your healthcare professional's instructions. documented in this encounter Progress Notes * Cookie Ortiz RPh - 05/20/2023 9:59 AM EST Medication Therapy [facility] - Diabetes Management Progress Note Landon Cecy Ghosh Sr., identified by name and date of , is a 58 year old male being seen for diabetes management/education. Patient presents for return diabetic visit. DIABETES: Current diabetic medications: Metformin 500 mg tablets BID Trulicity 4.5 mg weekly Jardiance 25 mg daily Medication Injection Site: Abdomen Lifestyle: Diet: worse notes has not been exercising or watching what he has been eating Glucose Review/SMBG: Readings per patient memory/recall: Patient is currently testing 0-1 times a day Hypoglycemia: Does your blood sugar go below 70 mg/dL? No Hyperglycemia symptoms present: none Recent Labs Units 05/06/23 0940 07/23/22 0736 03/12/22 0741 HEMOGLOBIN A1C - [facility] % 10.1* 8.8* 9.3* Recent Labs Units 10/22/22 0739 07/23/22 0736 03/12/22 0745 ESTIMATED GLOMERULAR FILTRATION RATE - [facility] mL/min 51* 43* 40* CREATININE - [facility] mg/dL 1.6* 1.8* 1.9* HYPERTENSION: Patient on ACEi/ARB: no, not indicated BP Readings from Last 3 Encounters: 05/20/23 112/68 05/19/23 115/65 05/16/23 98/58 Blood pressure at goal: yes HYPERLIPIDEMIA: Patient is taking moderate or high intensity statin: yes HEALTH MAINTENANCE REVIEW: Health Maintenance Due Topic Date Due DXA Scan 05/16/2018 Diabetic Eye Exam 11/18/2022 COVID-19 Vaccine ( season) 2023 GFR 04/24/2023 ASSESSMENT & PLAN: ICD-10-CM 1. Type 2 diabetes mellitus with hemoglobin A1c goal of less than 8.0% ([facility]) E11.9 2. DM type 2 nursing care encounter ([facility]) E11.9 BG Readings - Blood sugars uncontrolled. A1c has worsened significantly. Medications - Reviewed current regimen, patient is adherent to regimen. Will continue per patient preference, he will work on diet and lifestyle. If does not improve in 3 months, will discussion insulin start. Diet, Exercise, Lifestyle - worsened due to lack of activity and worse diet . Discussed with patient, patient would like to work on life style to improve BG values. Patient is agreeable to SMBG 0-1 time(s) daily. Patient aware to contact clinic if any hypoglycemia before next visit. MEDICATION CHANGES: no change Diabetic Medications: Metformin 500 mg tablets BID Trulicity 4.5 mg weekly Jardiance 25 mg daily HEALTH MAINTENANCE INTERVENTIONS: Labs: Ordered & Scheduled: HgA1c and BMP/CMP Immunizations: Up to Date Foot Exam: Up to Date Eye Exam: ordered today will be completed with nurse Annual Wellness Visit: N/A FOLLOW UP: Return to clinic in 12 weeks 08/12/2023 Cookie Ortiz RPh Clinical Pharmacist - [employer] Medication Therapy Management [facility] 05/20/2023, 9:59 AM The importance of having a yearly diabetic eye exam has been discussed with patient. Order and/or Referral placed along with patient instructions. Provider made aware. Cookie Ortiz RPh documented in this encounter Miscellaneous Notes * Addendum Note - Flavia Diane OSA - 05/31/2023 1:06 PM ESTAddended by: FLAVIA DIANE on: 05/31/2023 01:06 PM Modules accepted: Orders documented in this encounter Plan of Treatment Upcoming Encounters Date Type Department Care Team (Late st Contact Info) Description 08/09/2023 3:00 PM EDT Office Visit Nephrology, [facility] [address] [place] [address] Nohemi Loredo MD [address] [place] [address] 08/12/2023 3:30 PM EDT Office Visit Pharmacy, [facility] [address] [place] [address] [facility] [address] [place] [address] 11/23/2023 11:40 AM EDT Office Visit Family Practice [facility] [address] [place] [address] Timmy Chavez MD [address] [place] [address] 05/17/2024 10:00 AM EST Office Visit Sleep Disorders Ctr [facility], [place] [address] [place] [phone] Mariel Mendez Franchesca, DO [address] [place] [address] Scheduled Orders Name Type Priority Associated Diagnoses Orde r Schedule HEMOGLOBIN A1C Lab Routine Type 2 diabetes mellitus with hemoglobin A1c goal of less than 8.0% (HCC) Expected: 08/19/2023 (Approximate), Expires: 05/20/2024 BASIC METABOLIC PANEL Lab Routine Type 2 diabetes mellitus with hemoglobin A1c goal of less than 8.0% (HCC) Expected: 05/20/2023 (Approximate), Expires: 05/20/2024 Health Maintenance Due Date Last Done Comments Cologuard 02/03/2008 Sigmoidoscopy 02/03/2008 Fecal Occult Blood Test 12/15/2013 12/15/2012 DXA Scan 05/16/2018 05/16/2017 Diabetic Eye Exam 11/18/2022 11/18/2021, , 01/16/2018, Additional history exists COVID-19 Vaccine ( season) 2023 05/13/2021, 08/18/2020, 07/28/2020 GFR 04/24/2023 10/22/2022, 07/01, 03/12/2022, Additional history exists CKD HGB USE SMARTSET 81833 07/23/202307/23, 04/29/2021, 09/09/2016, Additional history exists Albumin/Creatinine Ratio 10/23/2023 023, 07/23/2022, 01/30/2021, Additional history exists CKD PHOS USE SMARTSET 58738 10/23/202309/28, 07/23/2022, 08/21/2021, Additional history exists TSH [...] goal of less than 8.0% (HCC)- Primary DM type 2 nursing care encounter (HCC) Type II or unspecified type diabetes mellitus without mention of complication, not stated as uncontrolled documented in this encounter Care Teams Audio/Video Engineer Relationship Specialty Start Date End Date Timmy Chavez MD [address] [place] [address] PCP - General Family Medicine 09/09/16 documented as of this encounter
--- OUTSIDE RECORDS SUMMARY | 2023-09-07 10:29 | External Medical Summary ---
Author Name Unknown Address Unknown Organization K01:[facility] [address] [place] [address] Laboratory Report Ordering Provider Test Date Status ALEJANDRO HERNÁNDEZ 07/21/2023 14:39:35 Final Observation Date Value Abnormality Reference (Units ) Status LDL, (direct) 07/21/2023 14:39:35 41 <=129 (mg/dL) Final LDL Cholesterol Reference Ra nges (mg/dL):
<70 Target level for high risk ASCVD patient
<100 Optimal for general population
100-129 Near optimal for general population
130-159 Borderline high
160-189 High
>=190 Very high Performing Location [facility] [address] [place] [address]
--- OUTSIDE RECORDS SUMMARY | 2023-09-07 10:30 | External Medical Summary | Summary of Care ---
Author Name Unknown Organization [facility] Address [address] [place] [address] Phone [phone] Care Team Providers Care Sensor Technician Name Role Phone Timmy Chavez MD Primary Care Provider + Reason for Visit * Auth/Cert Specialty Diagnoses / Procedures Referred By Terri alfaro Referred To Contact Diagnoses Screen for colon cancer Screen for colon cancer [Z12.11] Procedures COLONOSCOPY, DIAGNOSTIC (RECTUM) COLONOSCOPY FLEXIBLE PROXIMAL DIAGNOSTIC Referral ID Status Reason Start Date Expiration Date Visits Re quested Visits Authorized [id number] Encounter Details Date Type Department Care Team (Latest Contact Info) Description 05/19/2023 11:56 AM EST - 05/19/2023 2:07 PM EST Hospital Encounter ENDO [facility], Endoscopy Room [facility] [address] [place] [place] [phone] Kateryna Urbina MD [address] [place], [place] [address] [address] Colonoscopy Discharge Disposition: Home - Self Care Allergies Active Allergy Reactions Criticality Noted Date Comments Lisinopril Edema face/lips/tongue High 11/28/2003 Lip swelling documented as of this encounter (statuses as of 05/20/2023) Medications Medication Sig Dispensed Refills Start Date [...] FOR ALLERGIES 1 Bottle 3 12/02/2014 Active Albuterol Sulfate HFA 108 (90 Base) MCG/ACT Inhalation Aerosol SolutionIndications :Asthma, allergic INHALE TWO PUFFS BY MOUTH 4 TIMES DAILY NEEDED FOR CHEST CONGESTION OR ASTHMA 54 g 3 10/08/2020 Active CPAP every night at bedtime. 0 Active Rosuvastatin Calcium 5 MG Oral Tablet (Crestor)Indication s:Dyslipidemia, goal LDL below 100 Take 1 Tablet by mouth in the morning. 90 Tablet 3 07/13/2022 Active Trulicity 4.5 MG/0.5ML Subcutaneous Solution Pen-injector (Dulaglutide)Indica tions:Type 2 diabetes mellitus with hemoglobin A1c [...] Testosterone 20.25 MG/ACT (1.62%) Transdermal Gel (AndroGel Pump)Indications:Hy pogonadism male Apply 3 Act topically to affected area in the morning. to clean, dry, unbroken skin on the shoulders or upper arms.. 225 g 1 11/10/2022 Active Fenofibrate Micronized 67 MG Oral CapsuleIndications: [...] Active amLODIPine Besylate 10 MG Oral Tablet (Norvasc)Indication s:HTN, goal below 140/80 Take 1 Tablet by mouth in the morning. 90 Tablet 2 04/25/2023 Active Empagliflozin 25 MG Oral Tablet (Jardiance) Take 1 Tablet by mouth in the morning. 90 Tablet 3 04/25/2023 Active documented as of this encounter (statuses as of 05/20/2023) Active Problems Problem Noted Date Diagnosed Date Chronic kidney disease, stage 3b 08/09/2022 Overview: Per CKD protocol Hypertension associated with stage 3b chronic kidney disease due to type 2 diabetes mellitus 08/09/2022 Overview: Per CKD protocol Gastroenteritis 02/03/2022 COVID-19 virus infection 04/28/2020 Hx of actinic keratosis 03/06/2018 Well adult exam 09/09/2016 Overview: Hx growth hormone as child 2012 colonoscopy WNL. HTN, goal below 140/90 [...] as of this encounter (statuses as of 05/20/2023) Resolved Problems Problem Noted Date Diagnosed Date Resolved Date Stage 3 chronic kidney disease 11/08/2022 12/09/2022 Type 2 diabetes mellitus wit h stage 3a chronic kidney disease and hypertension 05/10/2022 08/11/2022 Overview: Per CKD protocol Type 2 DM with CKD stage 3 and hypertension 05/03/2022 05/13/2022 Overview: Per CKD protocol Stage 3a chronic kidney disease 04/07/2020 08/11/2022 Overview: Per CKD protocol Kidney disease, chronic, sta ge III (GFR 30-59 ml/min) 08/07/2018 04/10/2020 Overview: Per CKD protocol #1 Hematospermia 06/18/2014 09/09/2016 Overview: Really blood in semen (he had a bilateral vasectomy and the blood should not be from the testes). Screening for deficiency anemia 12/11/2012 09/09/2016 Hypoglycemia 12/06/2012 09/09/2016 [facility] Clinical Tri al [id number] 09/27/2012 11/23/2012 HTN, GOAL BELOW 140/80 01/17/201209/02 [...] as of this encounter (statuses as of 05/20/2023) Immunizations Name Administration Dates Next Due COVID-19 mRNA, LNP-s, No Pre serve, 2-Dose Series (TheFamily) 05/13/2021,08/18/2020,07/28/2020 H1N1 2009 Influenza, IM 03/30/2009 Hepatitis B, 20+ yrs 03/31/1995,10/28/1994,09/27 Pneumococcal Conjugate Vacci ne, 20-valent ([id number]) 11/03/2021 Seasonal Influenza, PF, 6 M & [...] Sign Reading Time Taken Comments Blood Pressure 115/65 05/19/2023 1:50 PM EST Pulse 76 05/19/2023 1:50 PM EST Temperature 36.5 C (97.7 F) 05/19/2023 1:34 PM ES T Respiratory Rate 18 05/19/2023 1:50 PM EST Oxygen Saturation 100% 05/19/2023 1:50 PM EST Inhaled Oxygen Concentration - - Weight 74.8 kg (165 lb) 05/11/2023 2:08 PM EST Height 172.1 cm (5' 7.75") 05/11/2023 2:08 PM ES T Body Mass Index 25.27 05/11/2023 2:08 PM EST documented in this encounter H&P Notes * Kateryna Urbina MD - 05/19/2023 1:11 PM EST Endoscopy Pre-Procedure Assessment Name: Landon Ghosh Sr. Date: 05/19/2023 Time: 1:11 PM Procedure(s): Colonoscopy; with Indication(s) of average risk screening Endoscopy Pre-Procedure Assessment: Prior to the procedure, the patient is identified. The patient's history, medications and allergieshave been reviewed. The patient is competent. The risks and benefits of the proposed procedure and the planned sedation have been discussed with the patient. All questions have been answered and informed consent for the procedure has been obtained. Prior to Admission medications Medication Sig Last Dose Discont. Spironolactone 25 MG Oral Tablet (Aldactone) One tablet daily 05/17/2023 amLODIPine Besylate 10 MG Oral Tablet (Norvasc) Take 1 Tablet by mouth in the morning. 05/18/2023 Empagliflozin 25 MG Oral Tablet (Jardiance) Take 1 Tablet by mouth in the morning. 05/16/2023 Carvedilol 25 MG Oral Tablet (Coreg) TAKE ONE & ONE-HALF TABLETS BY MOUTH TWICE DAILY WITH MORNING AND EVENING MEALS 05/19/2023 Levothyroxine Sodium 100 MCG Oral Tablet (Levoxyl) Take 1 Tablet by mouth in the morning. 30 minutes prior to breakfast or other meds. 05/19/2023 Omeprazole 20 MG Oral Capsule Delayed Release (PriLOSEC) TAKE 1 CAP BY MOUTH DAILY. 05/18/2023 Terazosin HCl 1 MG Oral Capsule (Hytrin) TAKE TWO CAPSULES BY MOUTH ONCE DAILY AT BEDTIME 05/18/2023 Fenofibrate Micronized 67 MG Oral Capsule Take 1 Capsule by mouth daily before breakfast. 05/19/2023 Testosterone 20.25 MG/ACT (1.62%) Transdermal Gel (AndroGel Pump) Apply 3 Act topically to affectedarea in the morning. to clean, dry, unbroken skin on the shoulders or upper arms.. 05/18/2023 metFORMIN HCl 500 MG Oral Tablet (Glucophage) Take 1 Tablet by mouth 2 times a day with morning andevening meals. 05/17/2023 Trulicity 4.5 MG/0.5ML Subcutaneous Solution Pen-injector (Dulaglutide) Inject 1 pen once weekly 05/11/2023 Rosuvastatin Calcium 5 MG Oral Tablet (Crestor) Take 1 Tablet by mouth in the morning. 05/18/2023 CPAP every night at bedtime. 05/18/2023 Albuterol Sulfate HFA 108 (90 Base) MCG/ACT Inhalation Aerosol Solution INHALE TWO PUFFS BY MOUTH 4TIMES DAILY NEEDED FOR CHEST CONGESTION OR ASTHMA Past Month fluticasone (FLONASE) 50 MCG/ACT nasal spray USE ONE SPRAY IN EACH NOSTRIL TWICE DAILY FOR ALLERGIES 05/18/2023 VITAMIN B-12 1000 MCG PO TABS 1 TABLET DAILY 05/18/2023 HM VITAMIN D3 2000 UNITS PO CAPS 1 CAPSULE DAILY 05/18/2023 ASPIRIN 81 MG PO CHEW take one tablet daily 05/19/2023 CETIRIZINE HCL 10 MG PO TABS one tablet by mouth daily at night 05/18/2023 Review of patient's allergies indicates: Allergen Reactions Lisinopril Edema face/lips/tongue Lip swelling BP 123/68 | Pulse 71 | Temp 36 C (96.8 F) (Tympanic) | Resp 16 | Ht 1.721 m (5' 7.75") | Wt 74.8 kg (165 lb) | SpO2 99% | BMI 25.27 kg/m | BSA 1.89 m Physical Exam: Mental Status Examination: alert and oriented. Resp: normal ASA Grade: II - A patient with mild systemic disease. Abdomen: soft This patient has undergone a preprocedural evaluation. A determination has been made to proceed with the planned procedure under [facility] procedural guidelines and the [facility] Non-Emergent, Elective Medical Services and Treatment Recommendations (published on 09-04-19). The community and hospital prevalence of COVID-19 has been discussed as well as this patient's specific risks associated with SARS-CoV-19 infection. Based upon the clinical acuity and patient-specific care considerations, this procedure is deemed a Tier III - Procedures at little or no risk for clinical deterioration (example - cosmetic). After reviewing the risks and benefits of colonoscopy including infection, bleeding, perforation, missed lesions, splenic laceration, the patient is deemed in satisfactory condition to undergo the procedure. The anesthesia plan is to use general anesthesia. Kateryna Urbina MD 05/19/2023 documented in this encounter Procedure Notes * Timmy Chavez MD - 05/19/2023 12:50 PM ESTAssociated Order(s): COLONOSCOPY [facility] Patient Name: Landon Ghosh Procedure Date: 05/19/2023 12:50 PM Date of : 1965 Admit Type: Outpatient Note Status: Finalized Date of : 1965 Admit Type: Outpatient Age: 58 Room: Endo 3 Gender: Male Note Status: Finalized Procedure: Colonoscopy Indications: Screening for colorectal malignant neoplasm Providers: Kateryna Urbina MD (Doctor), Elicia Contreras RN Patient Profile: Last Colonoscopy: November 2012. Referring MD: Timmy Chavez MD Medicines: See the Anesthesia note for documentation of the administered medications Complications: No immediate complications. Procedure: Pre-Anesthesia Assessment: - Patient identification and proposed procedure were verified prior to the procedure by the physician, the nurse and the anesthesiologist. The procedure was verified in the pre-procedure area. - Prior to the procedure, a History and Physical was performed, and patient medications, allergies and sensitivities were reviewed. The patient's tolerance of previous anesthesia was reviewed. - The risks and benefits of the procedure and the sedation options and risks were discussed with the patient. All questions were answered and informed consent was obtained. - The medication list for this patient has been reviewed prior to the procedure and has been determined that the patient may proceed with the planned study. Any medication changes made as a result of the findings of this procedure have been discussed with the patient and/or industrial relations representative at the time of discharge from the department. - After I obtained informed consent, the scope was passed under direct vision. All instruments were visually inspected immediately before and after removal from the patient to ensure they are fully intact. Throughout the procedure, the patient's blood pressure, pulse, and oxygen saturations were monitored continuously. The PCF-H180AL [id number] was introduced through the anus and advanced to the terminal ileum. The colonoscopy was performed without difficulty. The patient tolerated the procedure well. The quality of the bowel preparation was adequate to identify polyps 6 mm and larger in size. Findings & Specimens: The terminal ileum appeared normal. The examined colon appeared normal. Three sessile polyps were found in the cecum. The polyps were 2 to 10 mm in size. These polyps were removed with a cold snare. Resection and retrieval were complete. The pathology specimen was placed into Bottle Number 1. Verification of patient identification for the specimen was done by the physician and nurse using the patient's name and medical record number. Scattered small-mouthed diverticula were found in the sigmoid colon. The exam was otherwise without abnormality on direct and retroflexion views. Impression: - The examined portion of the terminal ileum appeared normal. - The examined colon appeared normal. - Three 2 to 10 mm polyps in the cecum, removed with a cold snare. Resected and retrieved. - Sigmoid diverticulosis. - The examination was otherwise normal on direct and retroflexion views. Recommendation: - Await pathology results. - Repeat colonoscopy for surveillance based on pathology results. Kateryna Urbina MD 05/19/2023 1:36:49 PM This report has been signed electronically. documented in this encounter Nursing Notes * Arcelia Caputo RN - 05/19/2023 2:02 PM EST Patient is alert, pain free, passing flatus and tolerating po fluids prior to discharge. Patient has been visited by Dr. Urbina. Patient has received and demonstrates understanding of discharge instructions. Patient is transported via w/c to private auto accompanied by endo staff. * Arcelia Caputo RN - 05/19/2023 1:[address] Urbina in with with discussing results of procedure. Pt sitting up tolerating PO fluid. * Elicia Contreras RN - 05/19/2023 1:36 PM EST No abdominal pressure given Specimen(s) and location(s) verified with physician post procedure 1:36 PM Elicia Contreras RN See anesthesia record for medication administered during procedure. Elicia Contreras RN Post-procedure scope cleaning began at bedside by endo breeding technician Pt. Tolerated colonoscopy well, no complications, soundly asleep, abdomen soft, transported to postendoscopy via stretcher by HOLDEN. * Arcelia Caputo RN - 05/19/2023 1:34 PM EST Received pt, sleeping, VSS, CM shows NSR. Report given by Tahira HATCH. * Chary Spencer RN - 05/19/2023 12:47 PM EST The following pt discharge instructions reviewed with pt prior to prodedure: No driving today. No alcohol today. No signing of legal documents. Rest as much as possible today and can return to normal activities tomorrow. No operating any heavy equipment today. Diet as tolerated. Pt verbalized understanding. documented in this encounter Plan of Treatment Upcoming Encounters Date Type Department Care Team (Late st Contact Info) Description 05/20/2023 9:40 AM EST Office Visit Family Practice [facility] [address] [facility] [place] [address] Timmy Chavez MD [address] [place] [address] 05/20/2023 10:00 AM EST Office Visit Pharmacy, [facility] [address] [place] [address] [email or web address] [address] [place] [address] 08/09/2023 3:00 PM EDT Office Visit Nephrology, [facility] [address] [place] [address] Nohemi Loredo MD [address] [facility] [place] [address] 05/17/2024 10:00 AM EST Office Visit [facility] [place] [address] [place] [phone] Mariel Mendez, [address] [place] [address] Pending Results Name Type Priority Associated Diagnoses Date /Time SURGICAL PATHOLOGY Pathology Routine Screen for colon cancer 05/19/2023 1:35 PM EST Scheduled Orders Name Type Priority Associated Diagnoses Orde r Schedule SURGICAL PATHOLOGY Pathology Routine Screen for colon cancer Release Upon Ordering for 1 Occurrences starting 05/19/2023, 1 completed Health Maintenance Due Date Last Done Comments Cologuard 02/03/2008 Sigmoidoscopy 02/03/2008 Fecal Occult Blood Test 12/15/2013 12/15/2012 DXA Scan 05/16/2018 05/16/2017 Diabetic Eye Exam 11/18/2022 11/18/2021, , 01/16/2018, Additional history exists COVID-19 Vaccine ( season) 2023 05/13/2021, 08/18/2020, 07/28/2020 GFR 04/24/2023 10/22/2022, 07/01, 03/12/2022, Additional history exists CKD HGB USE SMARTSET 35863 07/23/202307/23, 04/29/2021, 09/09/2016, Additional history exists Albumin/Creatinine Ratio 10/23/2023 023, 07/23/2022, 01/30/2021, Additional history exists CKD PHOS USE SMARTSET 81435 10/23/202309/28, 07/23/2022, 08/21/2021, Additional history exists TSH 10/23/2023 10/22/2022, 07/29, 07/02/2020, Additional history exists Depression Screening 11/04/2023 11/03/2022 Diabetic Foot Exam 11/04/2023 11/03/2022, 0 11/03/2021, 10/23/2020, Additional history exists HbA1c 11/05/2023 05/06/2023, 07/01, 03/12/2022, Additional history exists DTaP,Tdap,and Td Vaccines (3 - Td or Tdap) 05/25/2026 05/25/2016, 11/01/2005, 10/28/1994 Lipid Panel 03/12/2027 03/12/2022, 07/2020, 03/13/2020, Additional history exists Colonoscopy 05/19/2033 05/19/2023, 11/29, 12/27/2012 Colorectal Cancer Screening 05/19/2033 Hepatitis B Completed [...] Not on filedocumented as of this encounter Procedures Procedure Name Priority Date/Time Associated Diagnosis Comments GLUCOSE METER, POINT OF CARE RONN 05/19/2023 12:56 PM EST COLONOSCOPY 05/19/2023 12:50 PM EST documented in this encounter Results * (ABNORMAL) GLUCOSE METER, POINT OF CARE (05/19/2023 12:56 PM EST) Glucose Meter 124(H) 70 - 120 mg/dL 05/19/2023 1:02 PM EST LABORATORY [facility] 57-00 Blood Whole blood specimen / Unknown 05/19/2023 12:56 PM EST 05/19/2023 1:02 PM EST Kateryna Urbina MD LAB POINT OF CARE TE ST DOCKED DEVICE UNSOLICITED RESULTS YOLANDE PERALTA 57-00 [address] [place] [address] * COLONOSCOPY (05/19/2023 12:50 PM EST) 05/19/2023 12:5 0 PM EST Narrative Procedure Note Timmy Chavez MD - 05/19/2023 12:50 PM EST [facility] Patient Name: Landon Ghosh Procedure Date: 05/19/2023 12:50 PM Date of : 1965 Admit Type: Outpatient Note Status:Finalized Date of : 1965 Admit Type: Outpatient Age: 58 Room: Endo 3 Gender: Male Note Status: Finalized Procedure: Colonoscopy Indications: Screening for colorectal malignant neoplasm Providers: Kateryna Urbina MD (Doctor), Elicia Contreras RN Patient Profile: Last Colonoscopy: November 2012. Referring MD: Timmy Chavez MD Medicines: See the Anesthesia note for documentation of theadministered medications Complications: No immediate complications. Procedure: Pre-Anesthesia Assessment: - Patient identification and proposed procedurewere verified prior to the procedure by the physician, the nurse and theanesthesiologist. The procedure was verified in the pre-procedure area. - Prior to the procedure, a History and Physicalwas performed, and patient medications, allergies and sensitivities werereviewed. The patient's tolerance of previous anesthesia was reviewed. - The risks and benefits of the procedure and thesedation options and risks were discussed with the patient. All questions wereanswered and informed consent was obtained. - The medication list for this patient has beenreviewed prior to the procedure and has been determined that the patient may proceed with the plannedstudy. Any medication changes made as a result of the findings of this procedure have beendiscussed with the patient and/or industrial relations representative [facility] - After I obtained informed consent, the scope waspassed under direct vision. All instruments were visually inspected immediatelybefore and after removal from the patient to ensure they are fully intact. Throughout the procedure, the patient's bloodpressure, pulse, and oxygen saturations were monitored continuously. The PCF-H180AL [id number] introduced through the anus and advanced to the terminal ileum. The colonoscopywas performed without difficulty. The patient tolerated the procedure well. Thequality of the bowel preparation was adequate to identify polyps 6 mm and larger insize. Findings & Specimens: The terminal ileum appeared normal. The examined colon appeared normal. Three sessile polyps were found in the cecum. The polyps were 2 to 10mm in size. These polyps were removed with a cold snare. Resection and retrieval were complete. Thepathology specimen was placed into Bottle Number 1. Verification of patient identification for thespecimen was done by the physician and nurse using the patient's name and medical record number. Scattered small-mouthed diverticula were found in the sigmoidcolon. The exam was otherwise without abnormality on direct and retroflexionviews. Impression: - The examined portion of the terminal ileumappeared normal. - The examined colon appeared normal. - Three 2 to 10 mm polyps in the cecum, removedwith a cold snare. Resected and retrieved. - Sigmoid diverticulosis. - The examination was otherwise normal on directand retroflexion views. Recommendation: - Await pathology results. - Repeat colonoscopy for surveillance based onpathology results. Kateryna Urbina MD 05/19/2023 1:36:49 PM This report has been signed electronically. Timmy Chavez MD [facility] documented in this encounter Visit Diagnoses Diagnosis Screen for colon cancer Special screening for malignant neoplasms, colon documented in this encounter Administered Medications Inactive Administered Medications - up to 3 most recent administrations Medication Order MAR Action Action Date Dose Rate Site Acetaminophen (Tylenol) tab 650 mg 650 mg, Oral, PRN Pain, Mild, Starting on Qi 05/19/23 at 1340, Until Qi 05/19/23 at 1807, For 1 dose, Maximum of 4 grams (4000 mg) per day., Post-op isolyte-S pH 7.4 infusion Intravenous, Plasma-LYTE 148, isolyte-S, and isolyte-S pH 7.4 are considered equivalent - including for MAR barcode scanning., CONTINUOUS, Starting on Qi 05/19/23 at 1315, Until Qi 05/19/23 at 1807, Pre-Op Restarted 05/19/2023 1:29 PM EST Continue from Pre-Op 05/19/2023 1:13 PM EST 100 mL/hr New Bag 05/19/2023 1:01 PM EST 1,000 mL 100 mL/hr documented in this encounter Active and Recently Administered Medications Times are shown in EST. Continuous Medication Order 05/17/2023 05/18/2023 05/19/2023 isolyte-S pH 7.4 infusion Intravenous, Plasma-LYTE 148, isolyte-S, and isolyte-S pH 7.4 are considered equivalent - including for MAR barcode scanning., CONTINUOUS, Starting on Qi 05/19/23 at 1315, Until Qi 05/19/23 at 1807, Pre-Op 1301 (New Bag - Prov ider: Chary Spencer RN)1313 (Continue from Pre-Op - Provider: Tahira Crouch CRNA)1328 (Paused - Provider: Tahira Crouch CRNA - Comment: Switch to gravity)1329 (Restarted - Provider: Tahira Crouch CRNA) PRN Medication Order 05/17/2023 05/18/2023 05/19/2023 Acetaminophen (Tylenol) tab 650 mg 650 mg, Oral, PRN Pain, Mild, Starting on Qi 05/19/23 at 1340, Until Qi 05/19/23 at 1807, For 1 dose, Maximum of 4 grams (4000 mg) per day., Post-op documented in this encounter Care Teams Sensor Technician Relationship Specialty Start Date End Date Timmy Chavez MD [address] [place] [address] PCP - General Family Medicine 09/09/16 documented as of this encounter
--- OUTSIDE RECORDS SUMMARY | 2023-09-07 10:30 | External Medical Summary | Summary of Care ---
Author Name Unknown Organization [facility] Address [address] [place] [address] Phone [phone] Care Team Providers Care Chute Man Name Role Phone Timmy Chavez MD Primary Care Provider + Reason for Visit * Reason Comments Return Visit 6 month return Encounter Details Date Type Department Care Team (Late st Contact Info) Description 05/20/2023 9:40 AM EST Office Visit Family [facility] [address] [place] [address] Timmy Chavez MD [address] [facility] [place] [address] Well adult exam*; Type 2 diabetes mellitus with hemoglobin A1c goal of less than 8.0% ([facility]); HTN, goal below 140/90; Polyp of colon, [...] deficiency anemia 12/11/2012 09/09/2016 Hypoglycemia 12/06/2012 09/09/2016 [facility] HTN3 Clinical Tri al [id number] 09/27/2012 11/23/2012 HTN, GOAL BELOW 140/80 01/17/201209/02 [...] mRNA, LNP-s, No Pre serve, 2-Dose Series ([employer]) 05/13/2021,08/18/2020,07/28/2020 H1N1 2009 Influenza, IM 03/30/2009 Hepatitis B, 20+ yrs 03/31/1995,10/28/1994,09/27 Pneumococcal Conjugate Vacci ne, 20-valent ([id number]) 11/03/2021 Seasonal Influenza, PF, 6 M & [...] performed by Ree Tovar DO at ENDOSCOPY [facility],HYPERPLASTIC POLYPS REPEAT COLONOSCOPY IN 10 YEAR COVID-19 [...] performed by Ree Tovar DO at ENDOSCOPY [facility],HYPERPLASTIC POLYPS REPEAT COLONOSCOPY IN 10 YEARS EGD, FLEXIBLE, DIAGNOSTIC 08/28/2013 ESOPHAGOGASTRODUODENOSCOPY (EGD), FLEXIBLE, TRANSORAL, DIAGNOSTIC performed by Ree Tovar DO at ENDOSCOPY [facility] MISCELLANEOUS ORDER ([facility] ONLY) nose and arm reset after dislocations VASECTOMY 1998 Dr. 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 2-1 daught in [place] teaching, son in [place]. +grandson Arturo Other Topics Concern Not on [...] angioedema from ibuprofen Diabetes Mother lives in [place] Hypertension Father Endocrine Disorder Father Hyperlipidemia Endocrine [...] counseled on diet/exercise Shots had flu, rsv Urlrv-JLH_-b/u path report likely will need 3-5 y [...] 08/09/2023 3:00 PM EDT Office Visit Nephrology, [facility] [address] [place] [address] Nohemi Loredo MD [address] [facility] [place] [address] 08/12/2023 3:30 PM EDT Office Visit Pharmacy, [facility] [address] [place] [address] [facility] [address] [place] [address] 11/23/2023 11:40 AM EDT Office Visit Family Practice [facility] [address] [place] [address] Timmy Chavez MD [address] [place] [address] 05/17/2024 10:00 AM EST Office Visit Sleep Disorders Ctr [facility] [address] [place] [phone] Mariel Mendez DO [address] [place] [address] Scheduled Orders Name Type Priority Associated Diagnoses Orde r Schedule LIPID PANEL WITH DIRECT LDL IF TG IS HIGH Lab Routine Type 2 diabetes mellitus with hemoglobin A1c goal of less than 8.0% ([facility]) Expected: 05/20/2023, Expires: 05/20/2024 Health Maintenance Due Date Last Done Comments Cologuard 02/03/2008 Sigmoidoscopy 02/03/2008 Fecal Occult Blood Test 12/15/2013 12/15/2012 DXA Scan 05/16/2018 05/16/2017 Diabetic Eye Exam 11/18/2022 11/18/2021, , 01/16/2018, Additional history exists COVID-19 Vaccine ( season) 2023 05/13/2021, 08/18/2020, 07/28/2020 GFR 04/24/2023 10/22/2022, 07/01, 03/12/2022, Additional history exists CKD HGB USE SMARTSET 96718 07/23/202307/23, 04/29/2021, 09/09/2016, Additional history exists Albumin/Creatinine Ratio 10/23/2023 023, 07/23/2022, 01/30/2021, Additional history exists CKD PHOS USE SMARTSET 82551 10/23/202309/28, 07/23/2022, 08/21/2021, Additional history exists TSH [...] type documented in this encounter Care Teams Chute Man Relationship Specialty Start Date End Date Timmy Chavez MD [address] [place] [address] PCP - General Family Medicine 09/09/16 documented as of this encounter"
--- OUTSIDE RECORDS SUMMARY | 2023-09-07 10:30 | External Medical Summary | Summary of Care ---
Author Name Unknown Organization [facility] Address [address] [place] [address] Phone [phone] Care Team Providers Care Clinical Research Management Associate Name Role Phone Timmy Chavez MD Primary Care Provider + Reason for Visit * Reason Comments Dosage Adjustment In Person (Anticoag Cl inic) Diabetes Follow-Up Encounter Details Date Type Department Care Team (Late st Contact Info) Description 05/20/2023 10:00 AM EST Office Visit [facility], [facility] [address] [facility] [address] [facility] [address] [place] [address] Type 2 diabetes mellitus with hemoglobin A1c goal of less than 8.0% ([facility])*; DM type 2 nursing care encounter ([facility]) Allergies Active Allergy Reactions Criticality Noted Date [...] deficiency anemia 12/11/2012 09/09/2016 Hypoglycemia 12/06/2012 09/09/2016 [facility] HTN3 Clinical Tri al [id number] 09/27/2012 11/23/2012 HTN, GOAL BELOW 140/80 01/17/201209/02 [...] mRNA, LNP-s, No Pre serve, 2-Dose Series ([employer]) 05/13/2021,08/18/2020,07/28/2020 H1N1 2009 Influenza, IM 03/30/2009 Hepatitis B, 20+ yrs 03/31/1995,10/28/1994,09/27 Pneumococcal Conjugate Vacci ne, 20-valent ([id number]) 11/03/2021 Seasonal Influenza, PF, 6 M & [...] Patient Instructions * Patient Instructions* Cookie Ortiz, [facility] - 05/20/2023 10:07 AM EST Images from [...] information about this test. Date Last Reviewed: 10/29/201519999704-7006 [employer]. [address] [place] [address]. All rights reserved. This information is not intended as a substitute for professional medical care. Always follow your healthcare professional's instructions. documented in this encounter Progress Notes * Cookie Ortiz RPh - 05/20/2023 9:59 AM EST Medication Therapy Disease Management [facility] - Diabetes Management Progress Note Landon Sam Davina Khalil, identified by name and date of , [...] hemoglobin A1c goal of less than 8.0% ([facility]) E11.9 2. DM type 2 nursing care encounter ([facility]) E11.9 BG Readings - Blood sugars uncontrolled. [...] 08/12/2023 Cookie Ortiz RPh Clinical Pharmacist - [facility] 05/20/2023, 9:59 AM The importance of having a yearly diabetic eye exam has been discussed with patient. Order and/or Referral placed along with patient instructions. Provider made aware. Cookie Ortiz RPh documented in this encounter Plan of Treatment Upcoming Encounters Date Type Department Care Team (Late st Contact Info) Description 08/09/2023 3:00 PM EDT Office Visit Nephrology, [facility] [address] [place] [address] Nohemi Loredo MD [address] [place] [address] 08/12/2023 3:30 PM EDT Office Visit Pharmacy, [facility] [address] [place] [address] [place], [facility] [address] [place] [address] 05/17/2024 10:00 AM EST Office Visit Sleep Disorders Ctr [facility] [address] [place] [phone] Mariel Mendez, [address] [place] [address] Scheduled Orders Name Type Priority Associated Diagnoses [...] Additional history exists CKD HGB USE SMARTSET 52676 07/23/202307/23, 04/29/2021, 09/09/2016, Additional history exists Albumin/Creatinine Ratio 10/23/2023 023, 07/23/2022, 01/30/2021, Additional history exists CKD PHOS USE SMARTSET 97298 10/23/202309/28, 07/23/2022, 08/21/2021, Additional history exists TSH [...] uncontrolled documented in this encounter Care Teams Clinical Research Management Associate Relationship Specialty Start Date End Date Timmy Chavez MD [address] [place] [address] PCP - General Family Medicine 09/09/16 documented as of this encounter
--- OUTSIDE RECORDS SUMMARY | 2023-09-07 10:31 | External Medical Summary | Summary of Care ---
Author Name Unknown Organization [facility] Address [address] [place] [address] Phone [phone] Care Team Providers Care Building Associate Name Role Phone Timmy Allen MD Primary Care Provider + Reason for Visit * Reason Onset Date Comments Medication Refill 04/25/2023 Encounter Details Date Type Department Care Team (Late st Contact Info) Description 04/25/2023 Refill Family Practice [facility] [address] [facility] [address] Timmy Allen MD [address] [place] [facility] [place] [address] HTN, goal below 140/80 Allergies Active Allergy Reactions Criticality Noted Date Comments Lisinopril Edema face/lips/tongue High 11/28/2003 Lip swelling documented as of this encounter (statuses as of 04/25/2023) Medications Medication Sig Dispensed Refills Start Date [...] CPAP every night at bedtime. 0 Active Spironolactone 25 MG Oral Tablet (Aldactone)Indicat ions:Hypertensive heart disease without heart failure One tablet daily 90 Tablet 3 05/17/2022 Active Rosuvastatin Calcium 5 MG Oral Tablet [...] other meds. 90 Tablet 1 04/07/2023 Active amLODIPine Besylate 10 MG Oral Tablet (Norvasc)Indicatio ns:HTN, goal below 140/80 Take 1 Tablet by mouth in the morning. 90 Tablet 2 04/25/2023 Active Empagliflozin 25 MG Oral Tablet (Jardiance) Take 1 Tablet by mouth in the morning. 90 Tablet 3 04/25/2023 Active amLODIPine Besylate 10 MG Oral Tablet (Norvasc)Indicatio ns:HTN, goal below 140/80 Take 1 Tablet by mouth in the morning. 90 Tablet 2 08/21/2022 3 Discontinue d(Refill) documented as of this encounter (statuses as of 04/25/2023) Active Problems Problem Noted Date Diagnosed Date [...] as of this encounter (statuses as of 04/25/2023) Resolved Problems Problem Noted Date Diagnosed Date [...] deficiency anemia 12/11/2012 09/09/2016 Hypoglycemia 12/06/2012 09/09/2016 [facility] HTN3 Clinical Tri al [id number] 09/27/2012 11/23/2012 HTN, GOAL BELOW 140/80 01/17/201209/02 [...] as of this encounter (statuses as of 04/25/2023) Immunizations Name Administration Dates Next Due COVID-19 mRNA, LNP-s, No Pre serve, 2-Dose Series ([employer]) 05/13/2021,08/18/2020,07/28/2020 H1N1 2009 Influenza, IM 03/30/2009 Hepatitis B, 20+ yrs 03/31/1995,10/28/1994,09/27 Pneumococcal Conjugate Vacci ne, 20-valent ([id number]) 11/03/2021 SEASONAL INFLUENZA, PF, 6 M & Above, IM , (FLULAVAL or FLUZONE) 2023,03/16/2022,02/17/2021,2019,03/12/2019,03/06/2018 Seasonal Influenza, Quadriva lent, No Preserve, [...] encounter Miscellaneous Notes * Telephone Encounter - Trey Boyd RPh - 04/25/2023 5:14 PM ESTSigned Prescriptions: Disp Refills amLODIPine Besylate 10 MG Oral Tablet (Nor*90 Tab*2 Sig: Take 1 Tablet by mouth in the morning.Authorizing Provider: TIMMY ALLEN User: TREY BOYD documented in this encounter Plan of Treatment Upcoming Encounters Date Type Department Care Team (Latest Contact Info) Description 05/16/2023 11:00 AM EST Office Visit Sleep Disorders Ctr [facility] [address] [place] [phone] Mariel Mendez DO [address] [place] [address] 05/19/2023 1:00 PM EST Hospital Encounter ENDO [facility], Endoscopy Room [facility] [address] [place] [phone] Kateryna Urbina MD [address] [place] [address] 05/19/2023 1:00 PM EST - 05/19/2023 1:30 PM EST Surgery ENDO [facility], Endoscopy Room [facility] [address] [place] [phone] Kateryna Urbina MD [address] [place] [phone] COLONOSCOPY FLEXIBLE PROXIMAL DIAGNOSTIC 05/20/2023 9:40 AM EST Office Visit Family Practice [facility] [address] [place] [address] Timmy Allen MD [address] [place] [address] 05/20/2023 10:00 AM EST Office Visit Pharmacy, [facility] [address] [place] [address] [facility] [address] [place] [address] 08/09/2023 3:00 PM EDT Office Visit Nephrology, [facility] [address] [place] [address] Nohemi Loredo MD [address] [place] [address] Scheduled Procedures Name Priority Associated Diagnoses Date/Ti me COLONOSCOPY FLEXIBLE PROXIMAL DIAGNOSTIC Screen for colon cancer 05/19/2023 1:00 PM EST Health Maintenance Due Date Last Done Comments Cologuard 02/03/2008 Sigmoidoscopy 02/03/2008 Fecal Occult Blood Test 12/15/2013 12/15/2012 DXA Scan 05/16/2018 05/16/2017 Diabetic Eye Exam 11/18/2022 11/18/2021, , 01/16/2018, Additional history exists Colonoscopy 12/27/2022 12/27/2012, 12/27/2012 Colorectal Cancer Screening 12/27/2022 HbA1c 01/20/2023 07/23/2022, 02/27, 01/13/2022, Additional history exists COVID-19 Vaccine ( season) 2023 05/13/2021, 08/18/2020, 07/28/2020 GFR 04/24/2023 10/22/2022, 07/01, 03/12/2022, Additional history exists CKD HGB USE SMARTSET 84588 07/23/202307/23, 04/29/2021, 09/09/2016, Additional history exists Albumin/Creatinine Ratio 10/23/2023 023, 07/23/2022, 01/30/2021, Additional history exists CKD PHOS USE SMARTSET 62145 10/23/202[address] 10/2022, 07/23/2022, 08/21/2021, Additional history exists TSH 10/23/2023 10/22/2022, 07/29, 07/02/2020, Additional history exists Depression Screening 11/04/2023 11/03/2022 Diabetic Foot Exam 11/04/2023 11/03/2022, 0 11/03/2021, 10/23/2020, Additional history exists DTaP,Tdap,and Td Vaccines (3 - Td or Tdap) 05/25/2026 05/25/2016, 11/01/2005, 10/28/1994 Lipid Panel 03/12/2027 03/12/2022, 07/2020, 03/13/2020, Additional history exists Hepatitis B Completed 03/31/1995, [...] HTN, goal below 140/80 Unspecified essential hypertension Screen for colon cancer Special screening for malignant neoplasms, colon documented in this encounter Care Teams Building Associate Relationship Specialty Start Date End Date Timmy Allen MD [address] [place] [address] PCP - General Family Medicine 09/09/16 documented as of this encounter
--- OUTSIDE RECORDS SUMMARY | 2023-09-07 10:31 | External Medical Summary ---
Author Name Unknown Address Unknown Organization K01:LABORATORY [facility] - [address] [place] [address] Laboratory Report Ordering Provider Test Date Status CIRILO ARECHIGA 05/06/2023 09:40:51 Final Observation Date Value Abnormality Reference (Units ) Status MYCODE SPECIMEN-SST 05/06/2023 09:40:51 Freezing of extracted DNA, whole blood and/or serum. Final Performing Location LABORATORY C - [address] [place] [address]
--- OUTSIDE RECORDS SUMMARY | 2023-09-07 10:31 | External Medical Summary ---
Author Name Unknown Address Unknown Organization K01:LABORATORY [facility] - [address] [place] [address] Laboratory Report Ordering Provider Test Date Status TIFFANIE GAXIOLA 05/06/2023 09:40:51 Final Observation Date Value Abnormality Reference (Units ) Status HbA1C 05/06/2023 09:40:51 10.1 Above high normal 4. 0-5.6 (%) Final The use of HbA1c to monitor glycemic status is based on normal hemoglobin and HbA composition. This test should not be used in patients with abnormal hemoglobin that affects the half life of the red blood cell or the in vivo glycation rates. Glucose, estimated average 05/06/2023 09:40:51 243 Above high normal <126 (mg/dL) Kirill de la cruz Performing Location LABORATORY [facility] - [address] [place] [address]
--- OUTSIDE RECORDS SUMMARY | 2023-09-07 10:31 | External Medical Summary ---
Author Name Unknown Address Unknown Organization : Laboratory Report Ordering Provider Test Date Status MONICO WILKINSON 05/19/2023 12:56:13 Final Observation Date Value Abnormality Reference (Units ) Status Glucose Point of Care 05/19/2023 12:56:13 124 Above high normal 70-120 (mg/dL) Final Performing Location
--- OUTSIDE RECORDS SUMMARY | 2023-09-07 10:31 | External Medical Summary ---
Author Name Unknown Address Unknown Organization K01:LABORATORY [facility] [place] [address] [place] [address] Laboratory Report Ordering Provider Test Date Status CIRILO ARECHIGA 05/06/2023 09:40:51 Final Observation Date Value Abnormality Reference (Units ) Status MYCODE SPECIMEN-SST 05/06/2023 09:40:51 Freezing of extracted DNA, whole blood and/or serum. Final Performing Location LABORATORY C - [address] [place] [address]
--- OUTSIDE RECORDS SUMMARY | 2023-09-07 10:31 | External Medical Summary | Summary of Care ---
Author Name Unknown Organization [facility] Address [address] [place] [address] Phone [phone] Care Team Providers Care Wood Craftsman Name Role Phone Timmy Chavez MD Primary Care Provider + Encounter Details Date Type Department Care Team (Late st Contact Info) Description 05/16/2023 Orders Only Outcomes Research Department [address] [place] [address] Faye Gilmore CHRA MyCode Research Other*[id number] Allergies Active Allergy Reactions Criticality Noted Date Comments Lisinopril Edema face/lips/tongue High 11/28/2003 Lip swelling documented as of this encounter (statuses as of 05/16/2023) Medications Medication Sig Dispensed Refills Start Date [...] as of this encounter (statuses as of 05/16/2023) Active Problems Problem Noted Date Diagnosed Date [...] as of this encounter (statuses as of 05/16/2023) Resolved Problems Problem Noted Date Diagnosed Date [...] deficiency anemia 12/11/2012 09/09/2016 Hypoglycemia 12/06/2012 09/09/2016 [facility] HTN3 Clinical Tri al [id number] 09/27/2012 11/23/2012 HTN, GOAL BELOW 140/80 01/17/201209/02 [...] as of this encounter (statuses as of 05/16/2023) Immunizations Name Administration Dates Next Due COVID-19 mRNA, LNP-s, No Pre serve, 2-Dose Series ([employer]) 05/13/2021,08/18/2020,07/28/2020 H1N1 2009 Influenza, IM 03/30/2009 Hepatitis B, 20+ yrs 03/31/1995,10/28/1994,09/27 Pneumococcal Conjugate Vacci ne, 20-valent ([id number]) 11/03/2021 Seasonal Influenza, PF, 6 M & [...] Care Team (Latest Contact Info) Description 05/19/2023 1:00 PM EST Hospital Encounter ENDO [facility], Endoscopy Room [facility] [address] [place] [phone] Kateryna Urbina MD [address] [place] [address] 05/19/2023 1:00 PM EST - 05/19/2023 1:30 PM EST Surgery ENDO [facility], Endoscopy Room [facility] [address] [place] [phone] Kateryna Urbina MD [address] [place] [address] COLONOSCOPY FLEXIBLE PROXIMAL DIAGNOSTIC 05/20/2023 9:40 AM EST Office Visit Family [facility] [address] [place] [address] Timmy Chavez MD [address] [place] [address] 05/20/2023 10:00 AM EST Office Visit Pharmacy, [facility] [place] [address] [facility] [address] [facility] [place] [address] 08/09/2023 3:00 PM EDT Office Visit Nephrology, [facility] [address] [facility] [place] [address] Nohemi Loredo MD [address] [facility] [place] [address] 05/17/2024 10:00 AM EST Office Visit Sleep Disorders Ctr [facility] [place] [phone] Mariel Mendez DO [address] [facility] [place] [address] Scheduled Orders Name Type Priority Associated Diagnoses Orde r Schedule MYCODE SUBSEQUENT ADULT Lab Routine MyCode Research Other*[id number] Every 6 Months for 2 Occurrences starting 05/16/2023 until 06/04/2024 Scheduled Procedures Name Priority Associated Diagnoses Date/Ti me COLONOSCOPY FLEXIBLE PROXIMAL DIAGNOSTIC Screen for colon cancer 05/19/2023 1:00 PM EST Health Maintenance Due Date Last Done Comments Cologuard 02/03/2008 Sigmoidoscopy 02/03/2008 Fecal Occult Blood Test 12/15/2013 12/15/2012 DXA Scan 05/16/2018 05/16/2017 Diabetic Eye Exam 11/18/2022 11/18/2021, , 01/16/2018, Additional history exists Colonoscopy 12/27/2022 12/27/2012, 12/27/2012 Colorectal Cancer Screening 12/27/2022 COVID-19 Vaccine ( season) 2023 05/13/2021, 08/18/2020, 07/28/2020 GFR 04/24/2023 10/22/2022, 07/01, 03/12/2022, Additional history exists CKD HGB USE SMARTSET 06479 07/23/202307/23, 04/29/2021, 09/09/2016, Additional history exists Albumin/Creatinine Ratio 10/23/2023 023, 07/23/2022, 01/30/2021, Additional history exists CKD PHOS USE SMARTSET 05713 10/23/202309/28, 07/23/2022, 08/21/2021, Additional history exists TSH [...] as of this encounter Visit Diagnoses Diagnosis MyCode Research Other*[id number] Screen for colon cancer Special screening for malignant neoplasms, colon documented in this encounter Care Teams Wood Craftsman Relationship Specialty Start Date End Date Timmy Chavez MD [address] [place] [address] PCP - General Family Medicine 09/09/16 documented as of this encounter
--- OUTSIDE RECORDS SUMMARY | 2023-09-07 10:31 | External Medical Summary | Summary of Care ---
Author Name Unknown Organization [facility] Address [address] [place] [address] Phone [phone] Care Team Providers Care Senior Hardware Engineer Name Role Phone Timmy Chavez MD Primary Care Provider + Encounter Details Date Type Department Care Team (Late st Contact Info) Description 05/16/2023 Telephone Pulmonary Medicine, [facility] [address] [place] [address] Mariel Mendez, [address] [facility] [place] [address] Allergies Active Allergy Reactions Criticality Noted Date [...] 09/09/2016 Overview: Hx growth hormone as child 2013 colonoscopy WNL. HTN, goal below 140/90 [...] anemia 12/11/2012 09/09/2016 Hypoglycemia 12/06/2012 09/09/2016 [facility] HTN3 Clinical Tri al [id number] 09/27/2012 11/23/2012 HTN, GOAL BELOW 140/80 01/17/201209/02 [...] mRNA, LNP-s, No Pre serve, 2-Dose Series (M2TECH) 05/13/2021,08/18/2020,07/28/2020 H1N1 2009 Influenza, IM 03/30/2009 Hepatitis B, 20+ yrs 03/31/1995,10/28/1994,09/27 Pneumococcal Conjugate Vacci ne, 20-valent ([id number]) 11/03/2021 Seasonal Influenza, PF, 6 M & [...] encounter Miscellaneous Notes * Telephone Encounter - Luis Alberto Menjivar OSA - 05/16/2023 12:32 PM EST Orders in 05/16 supplies T&B documented in this encounter Plan of Treatment Upcoming Encounters Date Type Department Care Team (Latest Contact Info) Description 05/19/2023 1:00 PM EST Hospital Encounter ENDO OSSC, Endoscopy Room [facility] [address] [facility] [place] [phone] Kateryna Urbina MD [address] [place] [address] 05/19/2023 1:00 PM EST - 05/19/2023 1:30 PM EST Surgery ENDO O[facility], Endoscopy Room [facility] [address] [place] [phone] Kateryna Urbina MD [address] [place] [address] COLONOSCOPY FLEXIBLE PROXIMAL DIAGNOSTIC 05/20/2023 9:40 AM EST Office Visit Family Practice [facility] [address] [facility] [place] [address] Timmy Chavez MD [address] [place] [address] 05/20/2023 10:00 AM EST Office Visit Pharmacy, [facility] [place] [address] [facility] [address] [place] [address] 08/09/2023 3:00 PM EDT Office Visit Nephrology, [facility] [address] [place] [address] Nohemi Loredo MD [address] [place] [address] 05/17/2024 10:00 AM EST Office Visit Sleep Disorders Ctr [facility] 132 [facility] [place] [phone] Mariel Mendez DO 132 [facility] [place] [address] Scheduled Procedures Name Priority Associated Diagnoses Date/Ti [...] Additional history exists CKD HGB USE SMARTSET 03535 07/23/202307/23, 04/29/2021, 09/09/2016, Additional history exists Albumin/Creatinine Ratio 10/23/2023 023, 07/23/2022, 01/30/2021, Additional history exists CKD PHOS USE SMARTSET 30825 10/23/202[address] 10/2022, 07/23/2022, 08/21/2021, Additional history exists [...] filedocumented as of this encounter Care Teams Senior Hardware Engineer Relationship Specialty Start Date End Date Timmy Chavez MD [address] [place] [address] PCP - General Family Medicine 09/09/16 documented as of this encounter
--- OUTSIDE RECORDS SUMMARY | 2023-09-07 10:31 | External Medical Summary | Summary of Care ---
Author Name Unknown Organization [facility] Address [address] [place] [address] Phone [phone] Care Team Providers Care Oven Equipment Repairer Name Role Phone Timmy Chavez MD Primary Care Provider + Reason for Visit * Reason Onset Date Comments Medication Refill 04/25/2023 Encounter Details Date Type Department Care Team (Late st Contact Info) Description 04/25/2023 Refill Family Practice [facility] [address] [facility] [place] [address] Rich Hussein MD [address] [place] [address] Hypertensive heart disease without heart failure Allergies Active Allergy Reactions Criticality Noted Date Comments Lisinopril Edema face/lips/tongue High 11/28/2003 Lip swelling documented as of this encounter (statuses as of 04/26/2023) Medications Medication Sig Dispensed Refills Start Date [...] the morning. 90 Tablet 3 04/25/2023 Active Spironolactone 25 MG Oral Tablet (Aldactone)Indicat ions:Hypertensive heart disease without heart failure One tablet daily 90 Tablet 3 05/17/2022 Discontinue d(Refill) documented as of this encounter (statuses as of 04/26/2023) Active Problems Problem Noted Date Diagnosed Date [...] as of this encounter (statuses as of 04/26/2023) Resolved Problems Problem Noted Date Diagnosed Date [...] deficiency anemia 12/11/2012 09/09/2016 Hypoglycemia 12/06/2012 09/09/[facility] HTN3 Clinical Tri al [id number] 09/27/2012 11/23/2012 HTN, GOAL BELOW 140/80 01/17/201209/02 [...] as of this encounter (statuses as of 04/26/2023) Immunizations Name Administration Dates Next Due COVID-19 mRNA, LNP-s, No Pre serve, 2-Dose Series (GetThis) 05/13/2021,08/18/2020,07/28/2020 H1N1 2009 Influenza, IM 03/30/2009 Hepatitis B, 20+ yrs 03/31/1995,10/28/1994,09/27 Pneumococcal Conjugate Vacci ne, 20-valent ([id number]) 11/03/2021 SEASONAL INFLUENZA, PF, 6 M & [...] encounter Miscellaneous Notes * Telephone Encounter - Rich Hussein MD - 04/26/2023 5:16 PM ESTSigned Prescriptions: Disp Refills Spironolactone 25 MG Oral Tablet (Aldacton*90 Tab*3 Sig: One tablet daily Authorizing Provider: RICH HUSSEIN * Telephone Encounter - Taina Ross LPN - 04/26/2023 9:22 AM ESTPending Prescriptions: Disp Refills Spironolactone 25 MG Oral Tablet (Aldacton*90 Tab*3 Sig: One tablet daily * Telephone Encounter - Taina Ross LPN - 04/26/2023 9:21 AM EST Refill request Last Ov- 11/08/22 Next Ov- 08/09/23 documented in this encounter Plan of Treatment Upcoming Encounters Date Type Department Care Team (Latest Contact Info) Description 05/16/2023 11:00 AM EST Office Visit [facility] Disorders Ctr [facility] [place] [phone] aMriel Mendez DO [address] [place] [address] 05/19/2023 1:00 PM EST Hospital Encounter ENDO OSS, Endoscopy Room [facility] [address] [place] [phone] Kateryna Urbina MD [address] [place] [address] 05/19/2023 1:00 PM EST - 05/19/2023 1:30 PM EST Surgery ENDO OSS, Endoscopy Room [facility] [address] [place] [phone] Kateryna Urbina MD [address] [place] [phone] COLONOSCOPY FLEXIBLE PROXIMAL DIAGNOSTIC 05/20/2023 9:40 AM EST Office Visit Family Practice [facility] [address] [place] [address] Timmy Chavez MD [address] [place] [address] 05/20/2023 10:00 AM EST Office Visit Pharmacy, [facility] [place] [address] [facility] [address] [place] [address] 08/09/2023 3:00 PM EDT Office Visit Nephrology, [facility] [address] [facility] [place] [address] Rich Hussein MD [address] [place] [address] Scheduled Procedures Name Priority Associated Diagnoses Date/Ti [...] Additional history exists CKD HGB USE SMARTSET 57591 07/23/202307/23, 04/29/2021, 09/09/2016, Additional history exists Albumin/Creatinine Ratio 10/23/2023 023, 07/23/2022, 01/30/2021, Additional history exists CKD PHOS USE SMARTSET 42646 10/23/202309/28, 07/23/2022, 08/21/2021, Additional history exists TSH 10/23/2023 10/22/2022, 07/29, 07/02/2020, Additional history exists Depression Screening 11/04/2023 11/03/2022 Diabetic Foot Exam 11/04/2023 11/03/2022, 0 11/03/2021, 10/23/2020, Additional history exists DTaP,Tdap,and Td Vaccines (3 - Td or Tdap) 05/25/2026 05/25/2016, 11/01/2005, 10/28/1994 Lipid Panel 03/12/2027 03/12/2022, 07/2020, 03/13/2020, Additional history exists Hepatitis B Completed 03/31/1995, 0 05/1994, 10/28/1994, Additional history exists Zoster Vaccines [...] Visit Diagnoses Diagnosis Hypertensive heart disease without heart failure Unspecified hypertensive heart disease without heart failure Screen for colon cancer Special screening for malignant neoplasms, colon documented in this encounter Care Teams Oven Equipment Repairer Relationship Specialty Start Date End Date Timmy Chavez MD [address] [place] [address] PCP - General Family Medicine 09/09/16 documented as of this encounter
--- OUTSIDE RECORDS SUMMARY | 2023-09-07 10:31 | External Medical Summary | Summary of Care ---
Author Name Unknown Organization [facility] Address [address] [place] [address] Phone [phone] Care Team Providers Care Condenser Cleaner Name Role Phone Timmy Allen MD Primary Care Provider + Reason for Visit * Reason Onset Date Comments Medication Refill 04/25/2023 Encounter Details Date Type Department Care Team (Late st Contact Info) Description 04/25/2023 Refill Pharmacy, [facility] [address] [place] [address] Timmy Allen MD [address] [place] [facility] [place] [address] Allergies Active Allergy Reactions Criticality Noted Date [...] the morning. 90 Tablet 3 07/13/2022 Active amLODIPine Besylate 10 MG Oral Tablet (Norvasc)Indicatio ns:HTN, goal below 140/80 Take 1 Tablet by mouth in the morning. 90 Tablet 2 08/21/2022 Active Trulicity 4.5 MG/0.5ML Subcutaneous Solution Pen-injector [...] other meds. 90 Tablet 1 04/07/2023 Active Empagliflozin 25 MG Oral Tablet (Jardiance) Take 1 Tablet by mouth in the morning. 90 Tablet 3 04/25/2023 Active Empagliflozin 25 MG Oral Tablet (Jardiance) Take 1 Tablet by mouth in the morning. 90 Tablet 1 10/18/2022 Discontinue d(Refill) documented as of this encounter [...] deficiency anemia 12/11/2012 09/09/2016 Hypoglycemia 12/06/2012 09/09/2016 [facility] HTN3 Clinical Tri al [id number] 09/27/2012 11/23/2012 HTN, GOAL BELOW 140/80 01/17/201209/02 [...] mRNA, LNP-s, No Pre serve, 2-Dose Series (YeHive) 05/13/2021,08/18/2020,07/28/2020 H1N1 2009 Influenza, IM 03/30/2009 Hepatitis B, 20+ yrs 03/31/1995,10/28/1994,09/27 Pneumococcal Conjugate Vacci ne, 20-valent ([id number]) 11/03/2021 SEASONAL INFLUENZA, PF, 6 M & [...] encounter Miscellaneous Notes * Telephone Encounter - Cookie Ortiz RPh - 04/25/2023 4:29 PM EST Signed Prescriptions: Disp Refills Empagliflozin 25 MG Oral Tablet (Jardiance)90 Tab*3 Sig: Take 1Tablet by mouth in the morning.Authorizing Provider: TIMMY ALLEN User: COOKIE ORTIZ documented in this encounter Plan of Treatment Upcoming Encounters Date Type Department Care Team (Latest Contact Info) Description 05/16/2023 11:00 AM EST Office Visit Sleep Disorders Ctr [facility] [address] [place] [phone] Mariel Mendez DO [address] [place] [address] 05/19/2023 1:00 PM EST Hospital Encounter ENDO OSSC, Endoscopy Room OSS [address] [place] [phone] Kateryna Urbina MD [address] [place] [address] 05/19/2023 1:00 PM EST - 05/19/2023 1:30 PM EST Surgery ENDO OSSC, Endoscopy Room OSS [address] [place] [phone] Kateryna Urbina MD [address] [place] [phone] COLONOSCOPY FLEXIBLE PROXIMAL DIAGNOSTIC 05/20/2023 9:40 AM EST Office Visit Family Practice [facility] [address] [place] [address] Timmy Allen MD [address] [place] [address] 05/20/2023 10:00 AM EST Office Visit Pharmacy, [facility] [address] [place] [address] [facility] [address] [place] [address] 08/09/2023 3:00 PM EDT Office Visit Nephrology, [facility] [address] [place] [address] Nohemi Loredo MD [address] [place] [address] Scheduled Procedures Name Priority Associated Diagnoses Date/Ti [...] Additional history exists CKD HGB USE SMARTSET 27309 07/23/202307/23, 04/29/2021, 09/09/2016, Additional history exists Albumin/Creatinine Ratio 10/23/2023 023, 07/23/2022, 01/30/2021, Additional history exists CKD PHOS USE SMARTSET 22046 10/23/202309/28, 07/23/2022, 08/21/2021, Additional history exists TSH 10/23/2023 10/22/2022, 07/29, 07/02/2020, Additional history exists Depression Screening 11/04/2023 11/03/2022 Diabetic Foot Exam 11/04/2023 11/03/2022, 0 11/03/2021, 10/23/2020, Additional history exists DTaP,Tdap,and Td Vaccines (3 - Td or Tdap) 05/25/2026 05/25/2016, 11/01/2005, 10/28/1994 Lipid Panel 03/12/2027 03/12/2022, 02/0 07/2020, 03/13/2020, Additional history exists Hepatitis B Completed 03/31/1995, 0605/1994, 10/28/1994, Additional history exists Zoster Vaccines Completed [...] filedocumented as of this encounter Care Teams Condenser Cleaner Relationship Specialty Start Date End Date Timmy Allen MD [address] [place] [address] PCP - General Family Medicine 09/09/16 documented as of this encounter
--- OUTSIDE RECORDS SUMMARY | 2023-09-07 10:31 | External Medical Summary | Summary of Care ---
Author Name Unknown Organization [facility] Address [address] [place] [facility] [place] [address] Phone [phone] Care Team Providers Care Burner Machine Operator Name Role Phone Timmy Chavez MD Primary Care Provider + Reason for Visit * Reason Comments Follow Up Here for return 1 ye ar. EDA. CPAP. No issues. Need new rx for medical supplies. Encounter Details Date Type Department Care Team (Late st Contact Info) Description 05/16/2023 11:00 AM EST Office Visit [facility] Disorders Ctr [facility] [place] [address] [place] [phone] Mariel Mendez DO [address] [place] [address] Obstructive sleep apnea* Allergies Active Allergy Reactions Criticality Noted Date [...] deficiency anemia 12/11/2012 09/09/2016 Hypoglycemia 12/06/2012 09/09/2016 [facility] HTN3 Clinical Tri al [id number] 09/27/2012 11/23/2012 HTN, GOAL BELOW 140/80 01/17/201209/02 [...] mRNA, LNP-s, No Pre serve, 2-Dose Series (Tri-Medics) 05/13/2021,08/18/2020,07/28/2020 H1N1 2009 Influenza, IM 03/30/2009 Hepatitis B, 20+ yrs 03/31/1995,10/28/1994,09/27 Pneumococcal Conjugate Vacci ne, 20-valent ([id number]) 11/03/2021 Seasonal Influenza, PF, 6 M & [...] Sign Reading Time Taken Comments Blood Pressure 98/58 05/16/2023 11:02 AM EST Pulse 78 05/16/2023 11:02 AM EST Temperature 36.2 C (97.2 F) 05/16/2023 11:[address] Respiratory Rate 16 05/16/2023 11:02 AM EST Oxygen Saturation 93% 05/16/2023 11:02 AM EST Inhaled Oxygen Concentration - - Weight 73.9 kg (163 lb) 05/16/2023 11:02 AM EST Height 171.5 cm (5' 7.5") 05/16/2023 11:02 AM ES T Body Mass Index 25.15 05/16/2023 11:02 AM EST documented in this encounter Progress Notes * Mariel Mendez, DO - 05/16/2023 11:03 AM EST Sleep Medicine Follow-Up HISTORY: Landon Ghosh is a 58 year old male for follow up of severe EDA. with Hx T2DM, DLD, hypothyroidism, asthma, HTN, for follow up of severe EDA. Initially presented with excessive daytime sleepiness. PSG 09/2010 (weight 181 lbs): AHI 44.7, SpO2 <91% 63 min. PAP titration 01/2011: CPAP 10 cwp; hypoxia resolved. Sleepiness improved with CPAP. His original CPAP (REMstar) was replaced through the [employer]icol recall with a DreamStation 2. Using CPAP 8 cmH2O. He continues to do well with CPAP. No concerns. Doing well with the new device. Subjective PAP adherence: excellent Sleep refreshing on PAP: yes Snoring on PAP: none Daytime sleepiness: no Drowsy driving: no Interface: nasal mask; needing to change due to his prior style being out of production. Dry nose or dry mouth: yes (in the dryer months) Use humidifier? no Aerophagia: no Morning headaches: no Recent weight change: no [place] Sleepiness Scale: 2 [place] Sleepiness Scale Question 05/16/2023 11:01 AM EST - Filed by Shari Lara LPN What is the chance you will doze off in the following situation? Sitting and reading Slight chance of dozing Watching TV No chance of dozing Sitting inactive in a public place, such as a theater or meeting No chance of dozing As a passenger in a car for an hour without a break No chance of dozing Lying down to rest in the afternoon when circumstances permit Slight chance of dozing When sitting and talking to someone No chance of dozing When sitting quietly after lunch without alcohol No chance of dozing In a car, while stopped for a few minutes in traffic No chance of dozing Score (range: 0 - 24) 2 CPAP Compliance: Report date: 05/11/23 % total days used: 100% % days used > 4 hours: 100% Average hours per day used: 8h 25m Large leak: 0 AHI: 1.1 /hr Pressure settin cmH2O Equipment: DME Provider is [employer] Uses a DreamStation 2. 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 Epididymal cyst N50.3 Low testosterone R79.89 HTN, goal below 140/90 I10 Well adult exam Z00.00 Hx of actinic keratosis Z87.2 COVID-19 virus infection U07.1 Gastroenteritis K52.9 Chronic kidney disease, stage 3b (HCC) N18.32 Hypertension associated with stage 3b chronic kidney disease due to type 2 diabetes mellitus (HCC) E11.22, I12.9, N18.32 Outpatient Medications Marked as Taking for the 05/16/23 encounter (Office Visit) with Mariel Mendez, DO Medication Sig Spironolactone 25 MG Oral Tablet (Aldactone) One tablet daily amLODIPine Besylate 10 MG Oral Tablet (Norvasc) Take 1 Tablet by mouth in the morning. Empagliflozin 25 MG Oral Tablet (Jardiance) Take 1 Tablet by mouth in the morning. Carvedilol 25 MG Oral Tablet (Coreg) TAKE ONE & ONE-HALF TABLETS BY MOUTH TWICE DAILY WITH MORNING AND EVENING MEALS Levothyroxine Sodium 100 MCG Oral Tablet (Levoxyl) Take 1 Tablet by mouth in the morning. 30 minutes prior to breakfast or other meds. Omeprazole 20 MG Oral Capsule Delayed Release (PriLOSEC) TAKE 1 CAP BY MOUTH DAILY. Terazosin HCl 1 MG Oral Capsule (Hytrin) TAKE TWO CAPSULES BY MOUTH ONCE DAILY AT BEDTIME Fenofibrate Micronized 67 MG Oral Capsule Take 1 Capsule by mouth daily before breakfast. Testosterone 20.25 MG/ACT (1.62%) Transdermal Gel (AndroGel Pump) Apply 3 Act topically to affectedarea in the morning. to clean, dry, unbroken skin on the shoulders or upper arms.. metFORMIN HCl 500 MG Oral Tablet (Glucophage) Take 1 Tablet by mouth 2 times a day with morning andevening meals. Trulicity 4.5 MG/0.5ML Subcutaneous Solution Pen-injector (Dulaglutide) Inject 1 pen once weekly Rosuvastatin Calcium 5 MG Oral Tablet (Crestor) Take 1 Tablet by mouth in the morning. CPAP every night at bedtime. Albuterol Sulfate HFA 108 (90 Base) MCG/ACT Inhalation Aerosol Solution INHALE TWO PUFFS BY MOUTH 4TIMES DAILY NEEDED FOR CHEST CONGESTION OR ASTHMA fluticasone (FLONASE) 50 MCG/ACT nasal spray USE ONE SPRAY IN EACH NOSTRIL TWICE DAILY FOR ALLERGIES VITAMIN B-12 1000 MCG PO TABS 1 TABLET DAILY HM VITAMIN D3 2000 UNITS PO CAPS 1 CAPSULE DAILY ASPIRIN 81 MG PO CHEW take one tablet daily CETIRIZINE HCL 10 MG PO TABS one tablet by mouth daily at night PHYSICAL EXAM: Filed Vitals: 05/16/23 1102 BP: 98/58 Pulse: 78 Resp: 16 Temp: 36.2 C (97.2 F) TempSrc: Tympanic SpO2: 93% Weight: 73.9 kg (163 lb) Height: 1.715 m (5' 7.5") Body mass index is 25.15 kg/m. General: alert, no acute distress Head: NC/AT Lungs: normal respiratory effort Neuro: speech clear and appropriate ASSESSMENT/PLAN: Obstructive sleep apnea - excellent adherence; encourage continued use of CPAP with all sleep - excellent efficacy of therapy; continue PAP at current setting 8 cmH2O - DME: T&B - Routine cleaning and change of supplies as needed. - Continue to avoid driving when feeling sleepy/drowsy. Follow-up with Sleep Medicine in 1 year. Mariel Mendez DO documented in this encounter Nursing Notes * Shari Lara LPN - 05/16/2023 11:04 AM EST Chief Complaint Patient presents with Follow Up Here for return 1 year. EDA. CPAP. No issues. DME: [facility]. [place] Sleepiness Scale Question 05/16/2023 11:01 AM EST - Filed by Shari Lara LPN What is the chance you will doze off in the following situation? Sitting and reading Slight chance of dozing Watching TV No chance of dozing Sitting inactive in a public place, such as a theater or meeting No chance of dozing As a passenger in a car for an hour without a break No chance of dozing Lying down to rest in the afternoon when circumstances permit Slight chance of dozing When sitting and talking to someone No chance of dozing When sitting quietly after lunch without alcohol No chance of dozing In a car, while stopped for a few minutes in traffic No chance of dozing Score (range: 0 - 24) 2 documented in this encounter Plan of Treatment Upcoming Encounters Date Type Department Care Team (Latest Contact Info) Description 05/19/2023 1:00 PM EST Hospital Encounter ENDO OSSC, Endoscopy Room [facility] [address] [place] [phone] Kateryna Urbina MD [address] [place] [phone] 05/19/2023 1:00 PM EST - 05/19/2023 1:30 PM EST Surgery ENDO [facility], Endoscopy Room [facility] [address] [place] [phone] Kateryna Urbina MD [address] [place] [address] COLONOSCOPY FLEXIBLE PROXIMAL DIAGNOSTIC 05/20/2023 9:40 AM EST Office Visit Family Practice [facility] [address] [place] [address] Timmy Chavez MD [address] [place] [address] 05/20/2023 10:00 AM EST Office Visit Pharmacy, [facility] [address] [place] [address] [facility] [address] [place] [address] 08/09/2023 3:00 PM EDT Office Visit Nephrology, [facility] [address] [place] [address] Nohemi Loredo MD [address] [place] [address] 05/17/2024 10:00 AM EST Office Visit Sleep Disorders Ctr [facility] [address] [place] [phone] Mariel Mendez, [address] [place] [address] Scheduled Procedures Name Priority Associated Diagnoses Date/Ti [...] Additional history exists CKD HGB USE SMARTSET 76570 07/23/202307/23, 04/29/2021, 09/09/2016, Additional history exists Albumin/Creatinine Ratio 10/23/2023 023, 07/23/2022, 01/30/2021, Additional history exists CKD PHOS USE SMARTSET 38120 10/23/202[address] 10/2022, 07/23/2022, 08/21/2021, Additional history exists [...] as of this encounter Visit Diagnoses Diagnosis Obstructive sleep apnea- Primary Obstructive sleep apnea (adult) (pediatric) Screen for colon cancer Special screening for malignant neoplasms, colon documented in this encounter Care Teams Burner Machine Operator Relationship Specialty Start Date End Date Timmy Chavez MD [address] [place] [address] PCP - General Family Medicine 09/09/16 documented as of this encounter
--- OUTSIDE RECORDS SUMMARY | 2023-09-07 10:31 | External Medical Summary | Summary of Care ---
Author Name Unknown Organization [facility] Address [address] [place] [address] Phone [phone] Care Team Providers Care Dry Mill Operator Name Role Phone Timmy Chavez MD Primary Care Provider + Reason for Visit * Reason Comments Outpatient Testing Encounter Details Date Type Department Care Team (Late st Contact Info) Description 05/06/2023 9:10 AM EST Laboratory Laboratory, [facility] [address] [place] [address] [facility] [address] [place] [address] Type 2 diabetes mellitus with hemoglobin A1c goal of less than 8.0% ([facility]); [employer] Other*[id number] Allergies Active Allergy Reactions Criticality Noted Date Comments Lisinopril Edema face/lips/tongue High 11/28/2003 Lip swelling documented as of this encounter (statuses as of 05/06/2023) Medications Medication Sig Dispensed Refills Start Date [...] as of this encounter (statuses as of 05/06/2023) Active Problems Problem Noted Date Diagnosed Date [...] as of this encounter (statuses as of 05/06/2023) Resolved Problems Problem Noted Date Diagnosed Date [...] deficiency anemia 12/11/2012 09/09/2016 Hypoglycemia 12/06/2012 09/09/2016 [facility] HTN3 Clinical Tri al [id number] 09/27/2012 11/23/2012 HTN, GOAL BELOW 140/80 01/17/201209/02 [...] as of this encounter (statuses as of 05/06/2023) Immunizations Name Administration Dates Next Due COVID-19 mRNA, LNP-s, No Pre serve, 2-Dose Series ([employer]) 05/13/2021,08/18/2020,07/28/2020 H1N1 2009 Influenza, IM 03/30/2009 Hepatitis B, 20+ yrs 03/31/1995,10/28/1994,09/27 Pneumococcal Conjugate Vacci ne, 20-valent ([id number]) 11/03/2021 SEASONAL INFLUENZA, PF, 6 M & [...] Office Visit Sleep Disorders Ctr [facility] [address] [place] [phone] Mariel Mendez DO [address] [place] [address] 05/19/2023 1:00 PM EST Hospital Encounter ENDO [facility], Endoscopy Room [facility] [address] [place] [phone] Kateryna Urbina MD [address] [place] [address] 05/19/2023 1:00 PM EST - 05/19/2023 1:30 PM EST [facility] [phone] Kateryna Urbina MD [address] [place] [address] COLONOSCOPY FLEXIBLE PROXIMAL DIAGNOSTIC 05/20/2023 9:40 AM EST Office Visit Family Practice [facility] [address] [place] [address] [facility] [address] 05/20/2023 10:00 AM EST Office Visit Pharmacy, [facility] [address] [place] [address] [facility] [address] [place] [address] 08/09/2023 3:00 PM EDT Office Visit Nephrology, [facility] [address] [place] [address] Nohemi Loredo MD [address] [place] [address] Pending Results Name Type Priority Associated Diagnoses Date /Time HEMOGLOBIN A1C Lab Routine Type 2 diabetes mellitus with hemoglobin A1c goal of less than 8.0% ([facility]) 05/06/2023 9:40 AM EST MYCODE INITIAL ADULT Lab Routine [employer] Other*[id number] 05/06/2023 9:40 AM EST MYCODE INITIAL ADULT-PINK Lab Routine [employer] Other*[id number] 05/06/2023 9:40 AM EST MYCODE SST1 Lab Routine [employer] Other*[id number] 05/06/2023 9:40 AM EST MYCODE SST2 Lab Routine [employer] Other*[id number] 05/06/2023 9:40 AM EST Scheduled Procedures Name Priority Associated Diagnoses [...] Additional history exists CKD HGB USE SMARTSET 36499 07/23/202307/23, 04/29/2021, 09/09/2016, Additional history exists Albumin/Creatinine Ratio 10/23/2023 023, 07/23/2022, 01/30/2021, Additional history exists CKD PHOS USE SMARTSET 28393 10/23/202309/28, 07/23/2022, 08/21/2021, Additional history exists TSH [...] A1c goal of less than 8.0% (HCC) [employer] Other*[id number] Screen for colon cancer Special screening for malignant neoplasms, colon documented in this encounter Care Teams Dry Mill Operator Relationship Specialty Start Date End Date Timmy Chavez MD [address] [place] [address] PCP - General Family Medicine 09/09/16 documented as of this encounter
--- OUTSIDE RECORDS SUMMARY | 2023-09-07 10:31 | External Medical Summary ---
Author Name Unknown Address Unknown Organization K01:[facility] - [address] [place] [address] Laboratory Report Ordering Provider Test Date Status CIRILO ARECHIGA 05/06/2023 09:40:51 Final Observation Date Value Abnormality Reference (Units ) Status MYCODE SPECIMEN-LAV 05/06/2023 09:40:51 Freezing of extracted DNA, whole blood and/or serum. Final Performing Location [facility] - [address] [place] [address]
--- OUTSIDE RECORDS SUMMARY | 2023-09-07 10:32 | External Medical Summary | Summary of Care ---
Author Name Unknown Organization [facility] Address [address] [place] [address] Phone [phone] Care Team Providers Care Order Control Clerk Blood Bank Name Role Phone Timmy Chavez MD Primary Care Provider + Reason for Visit * Reason Onset Date Comments Medication Refill 04/06/2023 Encounter Details Date Type Department Care Team (Late st Contact Info) Description 04/06/2023 Refill Cardiology, [facility] [address] [email or web address] [place] [address] Scot Vernon, DO [address] [place] [address] HTN, goal below 140/80; Hypertensive heart disease without congestive heart failure Allergies Active Allergy Reactions Criticality Noted Date Comments Lisinopril Edema face/lips/tongue High 11/28/2003 Lip swelling documented as of this encounter (statuses as of 04/07/2023) Medications Medication Sig Dispensed Refills Start Date [...] evening meals. 180 Tablet 3 08/23/2022 Active Omeprazole 20 MG Oral Capsule Delayed Release (PriLOSEC)Indicati ons:GERD (gastroesophageal reflux disease) TAKE 1 CAP BY MOUTH DAILY. 90 Capsule 1 10/18/2022 Active Empagliflozin 25 MG Oral Tablet (Jardiance) Take 1 Tablet by mouth in the morning. 90 Tablet 1 10/18/2022 Active Testosterone 20.25 MG/ACT (1.62%) Transdermal Gel [...] EVENING MEALS 270 Tablet 3 04/07/2023 Active Levothyroxine Sodium 100 MCG Oral Tablet (Levoxyl)Indicatio ns:Hypothyroidism due to acquired atrophy of thyroid Take 1 Tablet by mouth in the morning. 30 minutes prior to breakfast or other meds. 90 Tablet 1 04/07/2023 Active Carvedilol 25 MG Oral Tablet (Coreg)Indications :HTN, goal below 140/80,Hypertensiv e heart disease without congestive heart failure TAKE ONE & ONE-HALF TABLETS BY MOUTH TWICE DAILY WITH MORNING AND EVENING MEALS 270 Tablet 3 04/12/2022 3 Discontinue d(Refill) documented as of this encounter (statuses as of 04/07/2023) Active Problems Problem Noted Date Diagnosed Date [...] as of this encounter (statuses as of 04/07/2023) Resolved Problems Problem Noted Date Diagnosed Date [...] deficiency anemia 12/11/2012 09/09/2016 Hypoglycemia 12/06/2012 09/09/2016 [facility] HTN3 Clinical Tri al [id number] 09/27/2012 11/23/2012 HTN, GOAL BELOW 140/80 01/17/201209/02 [...] as of this encounter (statuses as of 04/07/2023) Immunizations Name Administration Dates Next Due COVID-19 mRNA, LNP-s, No Pre serve, 2-Dose Series ([email or web address]) 05/13/2021,08/18/2020,07/28/2020 H1N1 2009 Influenza, IM 03/30/2009 Hepatitis B, 20+ yrs 03/31/1995,10/28/1994,09/27 Pneumococcal Conjugate Vacci ne, 20-valent ([email or web address]) 11/03/2021 SEASONAL INFLUENZA, PF, 6 M & [...] Telephone Encounter - Braxton Fonseca PA-C - 04/07/2023 11:29 AM EST Signed Prescriptions: Disp Refills Carvedilol 25 MG Oral Tablet (Coreg) 270 Ta*3 Sig: TAKE ONE & ONE-HALF TABLETS BY MOUTH TWICE DAILY WITH MORNING AND EVENING MEALS Authorizing Provider: BRAXTON FONSECA * Telephone Encounter - Jacquelin Sim COT - 04/07/2023 10:58 AM ESTPending Prescriptions: Disp Refills Carvedilol 25 MG Oral Tablet (Coreg) 270 Ta*3 Sig: TAKE ONE & ONE-HALF TABLETS BY MOUTH TWICE DAILY WITH MORNING AND EVENING MEALS * Telephone Encounter - Jacquelin Sim COT - 04/07/2023 10:58 AM EST Did you pend patient's preferred pharmacy and medication before forwarding?yes Pharmacy: [facility] [facility] [place] Pending Prescriptions: Disp Refills Carvedilol 25 MG Oral Tablet (Coreg) 270 Ta*3 Sig: TAKE ONE & ONE-HALF TABLETS BY MOUTH TWICE DAILY WITH MORNING AND EVENING MEALS Last Visit: 01/19/2023 (in office), Visit date not found (telemedicine) Next Visit: Visit date not found If no future appointments scheduled, and last appointment is greater than a year ago, please schedule patient for a follow-up appointment Last date the medication was ordered: 04-12-2022 Is this request for a controlled substance?No Urine Drug Screen:No results found. However, due to the size of the patient record, not all encounters were searched. Please check Results Review for a complete set of results. Patient Phone Numbers Labs: Lab Results Component Value Date/Time CREAT [...] AM ALT 49 07/19/2018 08:34 AM HGBA1C 8.8 (H) 07/23/2022 07:36 AM HGBA1C 8.3 (H) 01/13/2022 12:00 AM HGBA1C 9.9 (H) 07/19/2018 08:34 AM documented in this encounter Plan of Treatment Upcoming Encounters Date Type Department Care Team (Latest Contact Info) Description 05/16/2023 11:00 AM EST Office Visit Sleep Disorders Ctr [facility] [address] [place] [phone] Mariel Mendez DO [address] [place] [address] 05/19/2023 1:00 PM EST Hospital Encounter ENDO [facility], Endoscopy Room [facility] [address] [place] [phone] Kateryna Urbina MD [address] [place] [id number] 05/19/2023 1:00 PM EST - 05/19/2023 1:30 PM EST Surgery ENDO [facility], Endoscopy Room [facility] [address] [place] [phone] Kateryna Urbina MD [address] [place] [address] COLONOSCOPY FLEXIBLE PROXIMAL DIAGNOSTIC 05/20/2023 9:40 AM EST Office Visit Family Practice [facility] 132 [facility] [place] [address] Timmy Chavez MD 132 [facility] [place] [address] 05/20/2023 10:00 AM EST Office Visit Pharmacy, [facility] 132 [facility] [place] [address] [facility] 132 [facility] [place] [address] 08/09/2023 3:00 PM EDT Office Visit Nephrology, [facility] [address] [facility] [place] [address] Nohemi Loredo MD [address] [facility] [place] [address] Scheduled Procedures Name Priority Associated Diagnoses Date/Ti [...] Additional history exists CKD HGB USE SMARTSET 57836 07/23/202307/23, 04/29/2021, 09/09/2016, Additional history exists Albumin/Creatinine Ratio 10/23/2023 023, 07/23/2022, 01/30/2021, Additional history exists CKD PHOS USE SMARTSET 32757 10/23/202309/28, 07/23/2022, 08/21/2021, Additional history exists TSH 10/23/2023 10/22/2022, 07/29, 07/02/2020, Additional history exists Depression Screening 11/04/2023 11/03/2022 Diabetic Foot Exam 11/04/2023 11/03/2022, 0 11/03/2021, 10/23/2020, Additional history exists DTaP,Tdap,and Td Vaccines (3 - Td or Tdap) 05/25/2026 05/25/2016, 11/01/2005, 10/28/1994 Lipid Panel 03/12/2027 03/12/2022, 020 07/2020, 03/13/2020, Additional history exists Hepatitis B [...] HTN, goal below 140/80 Unspecified essential hypertension Hypertensive heart disease without congestive heart failure Unspecified hypertensive heart disease without heart failure Screen for colon cancer Special screening for malignant neoplasms, colon documented in this encounter Care Teams Order Control Clerk Blood Bank Relationship Specialty Start Date End Date Timmy Chavez MD [address] [place] [address] PCP - General Family Medicine 09/09/16 documented as of this encounter
--- OUTSIDE RECORDS SUMMARY | 2023-09-07 10:32 | External Medical Summary | Summary of Care ---
Author Name Unknown Organization [facility] Address [address] [place] [address] Phone [phone] Care Team Providers Care Senior Research Engineer Name Role Phone Timmy Allen MD Primary Care Provider + Reason for Visit * Reason Onset Date Comments Medication Refill 04/06/2023 Encounter Details Date Type Department Care Team (Late st Contact Info) Description 04/06/2023 Refill Pharmacy, [facility] [address] [facility] [place] [address] Timmy Allen MD [address] [facility] [address] Hypothyroidism due to acquired atrophy of thyroid Allergies Active Allergy Reactions Criticality Noted Date [...] CPAP every night at bedtime. 0 Active Carvedilol 25 MG Oral Tablet (Coreg)Indications :HTN, goal below 140/80,Hypertensiv e heart disease without congestive heart failure TAKE ONE & ONE-HALF TABLETS BY MOUTH TWICE DAILY WITH MORNING AND EVENING MEALS 270 Tablet 3 04/12/2022 Active Spironolactone 25 MG Oral Tablet (Aldactone)Indicat [...] AT BEDTIME 180 Capsule 3 01/20/2023 Active Levothyroxine Sodium 100 MCG Oral Tablet (Levoxyl)Indicatio ns:Hypothyroidism due to acquired atrophy of thyroid Take 1 Tablet by mouth in the morning. 30 minutes prior to breakfast or other meds. 90 Tablet 1 04/07/2023 Active Levothyroxine Sodium 100 MCG Oral Tablet (Levoxyl)Indicatio ns:Hypothyroidism due to acquired atrophy of thyroid Take 1 Tablet by mouth in the morning. 30 minutes prior to breakfast or other meds. 90 Tablet 1 10/18/2022 3 Discontinue d(Refill) documented as of this [...] deficiency anemia 12/11/2012 09/09/2016 Hypoglycemia 12/06/2012 09/09/2016 [facility] HTN3 Clinical Tri al [id number] 09/27/2012 11/23/2012 HTN, GOAL BELOW 140/80 01/17/201209/02 [...] mRNA, LNP-s, No Pre serve, 2-Dose Series ([employer]) 05/13/2021,08/18/2020,07/28/2020 H1N1 2009 Influenza, IM 03/30/2009 Hepatitis B, 20+ yrs 03/31/1995,10/28/1994,09/27 Pneumococcal Conjugate Vacci ne, 20-valent ([id number]) 11/03/2021 SEASONAL INFLUENZA, PF, 6 M & [...] encounter Miscellaneous Notes * Telephone Encounter - Sarina Brownlee RPh - 04/07/2023 7:55 AM EST Signed Prescriptions: Disp Refills Levothyroxine Sodium 100 MCG Oral Tablet (*90 Tab*1 Sig: Take 1 Tablet by mouth in the morning. 30 minutes prior to breakfast or other meds.Authorizing Provider: TIMMY ALLEN User: SARINA BROWNLEE documented in this encounter Plan of Treatment Upcoming Encounters Date Type Department Care Team (Latest Contact Info) Description 05/16/2023 11:00 AM EST Office Visit [facility] [address] [place] [phone] Mariel Mendez DO [address] [place] [address] 05/19/2023 1:00 PM EST Hospital Encounter ENDO O[facility], Endoscopy Room [facility] [address] [place] [phone] Kateryna Urbina MD [address] [place] [address] 05/19/2023 1:00 PM EST - 05/19/2023 1:30 PM EST Surgery ENDO [facility], Endoscopy Room [facility] [address] [place] [phone] Kateryna Urbina MD [address] [place] [address] COLONOSCOPY FLEXIBLE PROXIMAL DIAGNOSTIC 05/20/2023 9:40 AM EST Office Visit Family Practice [facility] [address] [place] [address] Timmy Allen MD [address] [place] [address] 05/20/2023 10:00 AM EST Office Visit Pharmacy, [facility] [place] [address] [place] [address] [facility] [address] [place] [address] 08/09/2023 3:00 PM EDT Office Visit Nephrology, [facility] [place] [address] Nohemi Loredo MD [address] [place] [address] Scheduled Procedures Name Priority Associated Diagnoses Date/Ti [...] Additional history exists CKD HGB USE SMARTSET 15799 07/23/202307/23, 04/29/2021, 09/09/2016, Additional history exists Albumin/Creatinine Ratio 10/23/2023 023, 07/23/2022, 01/30/2021, Additional history exists CKD PHOS USE SMARTSET 10081 10/23/[address] 10/2022, 07/23/2022, 08/21/2021, Additional history exists [...] as of this encounter Visit Diagnoses Diagnosis Hypothyroidism due to acquired atrophy of thyroid Screen for colon cancer Special screening for malignant neoplasms, colon documented in this encounter Care Teams Senior Research Engineer Relationship Specialty Start Date End Date Timmy Allen MD 132 [facility] [place] [address] PCP - General Family Medicine 09/09/16 documented as of this encounter
--- OUTSIDE RECORDS SUMMARY | 2023-09-07 10:32 | External Medical Summary | Summary of Care ---
Author Name Unknown Organization [facility] Address [address] [place] [address] Phone [phone] Care Team Providers Care Cash Grain Grower Name Role Phone Timmy Allen MD Primary Care Provider + Reason for Visit * Reason Onset Date Comments Medication Refill 04/06/2023 Encounter Details Date Type Department Care Team (Late st Contact Info) Description 04/06/2023 Refill Family Practice [facility] [address] [facility] [place] [address] Timmy Allen MD [address] [place] [address] GERD (gastroesophageal reflux disease) Allergies Active Allergy Reactions Criticality Noted Date [...] evening meals. 180 Tablet 3 08/23/2022 Active Empagliflozin 25 MG Oral Tablet (Jardiance) [...] other meds. 90 Tablet 1 04/07/2023 Active Omeprazole 20 MG Oral Capsule Delayed Release (PriLOSEC)Indicati ons:GERD (gastroesophageal reflux disease) TAKE 1 CAP BY MOUTH DAILY. 90 Capsule 1 10/18/2022 3 Discontinue d(Refill) documented as [...] anemia 12/11/2012 09/09/2016 Hypoglycemia 12/06/2012 09/09/2016 [facility] HTN3 Clinical Tri al [id number] 09/27/2012 11/23/2012 HTN, GOAL BELOW 140/80 01/17/201209/02 [...] mRNA, LNP-s, No Pre serve, 2-Dose Series ([employer]) 05/13/2021,08/18/2020,07/28/2020 H1N1 2009 Influenza, IM 03/30/2009 Hepatitis B, 20+ yrs 03/31/1995,10/28/1994,09/27 Pneumococcal Conjugate Vacci ne, 20-valent ([id number]) 11/03/2021 SEASONAL INFLUENZA, PF, 6 M & [...] Notes * Telephone Encounter - Tin Hensley RPh - 04/07/2023 1:13 PM ESTSigned Prescriptions: Disp Refills Omeprazole 20 MG Oral Capsule Delayed Rele*90 Cap*1 Sig: TAKE 1CAP BY MOUTH DAILY.Authorizing Provider: TIMMY ALLEN User: TIN HENSLEY----- documented in this encounter Plan of Treatment Upcoming Encounters Date Type Department Care Team (Latest Contact Info) Description 05/16/2023 11:00 AM EST Office Visit Sleep Disorders Ctr [facility] [address] [place] [phone] Mariel Mendez DO [address] [place] [address] 05/19/2023 1:00 PM EST Hospital Encounter ENDO OSS[facility], Endoscopy Room [facility] [address] [place] [phone] Kateryna Urbina MD [address] [place] [address] 05/19/2023 1:00 PM EST - 05/19/2023 1:30 PM EST Surgery ENDO OSSC, Endoscopy Room [facility] [address] [place] [phone] Kateryna Urbina MD [address] [place] [phone] COLONOSCOPY FLEXIBLE PROXIMAL DIAGNOSTIC 05/20/2023 9:40 AM EST Office Visit Family Practice [facility] [address] [place] [address] Timmy Allen MD [address] [place] [address] 05/20/2023 10:00 AM EST Office Visit Pharmacy, [facility] [address] [place] [address] [facility] [address] [place] [address] 08/09/2023 3:00 PM EDT Office Visit Nephrology, [facility] [address] [place] [address] Nohemi Loredo MD [address] [place] [address] Scheduled Procedures Name Priority Associated Diagnoses Date/Ti [...] Additional history exists CKD HGB USE SMARTSET 30965 07/23/202307/23, 04/29/2021, 09/09/2016, Additional history exists Albumin/Creatinine Ratio 10/23/2023 023, 07/23/2022, 01/30/2021, Additional history exists CKD PHOS USE SMARTSET 10309 10/23/202309/28, 07/23/2022, 08/21/2021, Additional history exists TSH [...] as of this encounter Visit Diagnoses Diagnosis GERD (gastroesophageal reflux disease) Esophageal reflux Screen for colon cancer Special screening for malignant neoplasms, colon documented in this encounter Care Teams Cash Grain Grower Relationship Specialty Start Date End Date Timmy Allen MD [address] [facility] [place] [address] PCP - General Family Medicine 09/09/16 documented as of this encounter
--- NOTE | 2023-09-07 13:05 | Nephrology Consultation ---
Date of Consultation September 07, 2023 Assessment & Plan (1) Hyponatremia: hypovolemic hyponatremia w/ presenting sodium 124 on 09/05 at 2130. correcting too fast now, or at least as corrected as we want it to be >> sodium no more than 130 by 2100 09/06 and already there mdiday >stopped NS, changed to D5W at 125 ml/HR midday >recheck bmp 1700 >> recheck shows sNa correcting too fast to 133 >> continue D5W same rate ON; creatinine has improved to better than baseline; would avoid desmopressin in this setting d/t pituitary issues >BMP in AM after night on D5W Will sign off; pls call if ? NEPHRO d/c recs -hospital d/c appt w/ me in 2-4 wks after d/c w/ BMP, serum osms, rd urine sodium, urine osms to be ordered by neph nurse adn done no more than 3 days before appt -bmp at hosp f/u appt w/ PCP as well (2) Acute kidney injury superimposed on CKD: VASILE on cKD. baseline creatinine 1.6-1.8. nonoligiruc, prerenal, improving; resolved on recheck late today -avoid nephrotoxins History of Present Illness Reason for Consultation: VASILE on CKD, electrolyte abnormalities Requesting Physician: Dr Norris Attending Physician: Verónica Norris MD History of Present Illness 58 y/o M whom I'm asked to see for Vasile on CKD and electrolyte abnormalities was admitted earlier today w/ hyponatremia in the setting of a few days of n/v/watery diarrhea. 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 Hospitalized here 2021 for VASILE, electrolyte issues from gastritis. He started w/ diarrhea on 09/03 and it went on all day 09/04 and much of 09/05 which is when emesis happened x 2. No blood in stool or vomitus. Stools were "like swampwater." He knows about the sick day rule for jardiance and stopped it and metformin when he was feeling poorly. His presenting sodium at 2130 last evening was 124, up to 130 on midday labs. presenting creatinine was 2.3, down to 2 by 0300. He had 1L NS followed by standing rate. also had 2 gm IV mag. Currently on NS at 60 ml/hr Denies abdominal pain, sob, chest pain, palpitations, fever, edema, new/worrisome voiding sx. feeling improved when I saw him on late afternoon rounds and plan was slowly to advance his diet. no sick contacts or recent abtx; some recent restaurant food may have made him ill he thinks. Allergies Allergy/AdvReac Type Severity Reaction Status Date / Time lisinopril Allergy Intermediate Swelling Verified 09/07/23 02:40 of Lip/Tongue/Throat Home Medications Medication Instructions Recorded Confirmed Type carvedilol 25 mg tablet 37.5 mg PO BIDM 01/27/22 09/07/23 History cetirizine 10 mg tablet (Zyrtec) 10 mg PO HS 01/27/22 09/07/23 History dulaglutide 4.5 mg/0.5 mL 4.5 mg subcut WK 01/27/22 09/07/23 History subcutaneous pen injector (Trulicity) empagliflozin 25 mg tablet 25 mg PO DAILY 01/27/22 09/07/23 History (Jardiance) fenofibrate micronized 67 mg 67 mg PO DAILYBB 01/27/22 09/07/23 History capsule levothyroxine 100 mcg tablet 100 mcg PO DAILYBB 01/27/22 09/07/23 History metformin 500 mg tablet 500 mg PO BIDM 01/27/22 09/07/23 History omeprazole 20 mg capsule,delayed 20 mg PO DAILY 01/27/22 09/07/23 History release rosuvastatin 5 mg tablet 5 mg PO DAILY 01/27/22 09/07/23 History spironolactone 25 mg tablet 25 mg PO QAM 01/27/22 09/07/23 History terazosin 1 mg capsule 2 mg PO HS 01/27/22 09/07/23 History testosterone 20.25 mg transdermal QAM 01/27/22 09/07/23 History albuterol sulfate 90 mcg/actuation 2 puff inhalation QID PRN 09/07/23 09/07/23 History aerosol inhaler Shortness Of Breath Or Wheezing amlodipine 10 mg tablet 10 mg PO QAM 09/07/23 09/07/23 History aspirin 81 mg tablet,delayed 81 mg PO QAM 09/07/23 09/07/23 History release cholecalciferol (vitamin D3) 50 2,000 unit PO DAILY 09/07/23 09/07/23 History mcg (2,000 unit) tablet cyanocobalamin (vitamin B-12) 1,000 mcg PO DAILY 09/07/23 09/07/23 History 1,000 mcg tablet fluticasone propionate 50 1 spray intranasal BID PRN 09/07/23 09/07/23 History mcg/actuation nasal Congestion spray,suspension Patient History Medical History (Updated 09/07/23 @ 14:11 by Nohemi Loredo MD, PhD) Hyponatremia Acute on chronic renal failure HTN (hypertension) EDA (obstructive sleep apnea) CAD (coronary artery disease) CKD (chronic kidney disease) stage 3, GFR 30-59 ml/min Panhypopituitarism Type 2 diabetes mellitus Gastroenteritis Dehydration VASILE (acute kidney injury) Family History Father Hypertension Mother Diabetes Social History Smoking Status: Never smoker Hx Alcohol Use: No Hx Substance Use: No Preferred Language: Swedish Communication Ability: Effective Habitat Biologist Required: No Beliefs That Will Affect Care: None Current Living Situation: Spouse Other Information That Helps Us Care for You: No Feels Safe at Home: Yes Safety Concerns: Feels Safe At This Time Assistive Devices: None Review of Systems 2 Review of Systems: All systems reviewed & are unremarkable except as noted in HPI & below Physical Exam 2 Constitutional: well developed, well nourished and cooperative (on RA, maneuvers easily for exam); no acute distress Eyes: EOM intact bilaterally ENMT: Ears: no external ear abnormality Nose: no external nose abnormality Mouth: + dry oral mucous membranes Neck: no nuchal rigidity Respiratory: normal respiratory effort Auscultation: + diminished lung sounds Gastrointestinal (Abdomen): Inspection/Auscultation: normal bowel sounds P ercussion/Palpation: abdomen soft; abdomen nontender Musculoskeletal: Extremities: strength 5/5 throughout Skin: no rashes, warm and dry Neurologic: crabtree, fluent speech, no tremor Results & Data Vital Signs (Past 12 Hours) Vital Signs Pulse Pulse Resp BP BP Pulse Ox Pulse Ox 09/07/23 07:28 98 09/07/23 07:28 72 18 116/78 98 09/07/23 07:27 75 09/07/23 06:00 70 29 H 130/71 96 09/07/23 04:18 73 09/07/23 04:00 71 17 129/70 97 09/07/23 04:00 129/70 09/07/23 03:00 135/73 09/07/23 02:00 76 14 132/66 97 O2 Del Method O2 Del Method 09/07/23 07:28 Room Air 09/07/23 07:28 Room Air 09/07/23 07:27 09/07/23 06:00 09/07/23 04:18 09/07/23 04:00 09/07/23 04:00 09/07/23 03:00 09/07/23 02:00 Laboratory Results 09/07/23 06:42 09/07/23 11:55
[2023-09-07] MEDS: DEXTROSE 5% 1,000 ML IV STA (14:41)
--- NOTE | 2023-09-07 16:53 | Communication Note ---
Date of Service: September 07, 2023 Patient seen and examined Reports feeling better. No vomiting so far. Reports last bowel movement was around 2 AM. Denies any abdominal pain or any complaints at this time. Advance diet Nephrology eval and recs appreciated Continue IVF Follow up BMP, electrolytes Other plans as detailed in H/P this AM
[2023-09-07 18:27] LABS: BUN Creatinine Ratio 22.8 (10-20); Calcium 8.9 mg/dl (8.6-10.3); Creatinine Clr Calc Pharmacy 52.4 ml/min; Est GFR (African American) 60.2 ml/min; Magnesium 2.1 mg/dl (1.7-2.4); Potassium 4.3 mmol/L (3.5-5.1)
[2023-09-07] MEDS: CETIRIZINE HCL 10 MG TABLET PO SCH (20:33)
[2023-09-07] MEDS: TERAZOSIN HCL 1 MG CAP PO SCH (21:50)
[2023-09-08 05:22] LABS: Hemoglobin 11.6 g/dl (14.0-18.0); Mean Corpuscular Hemoglobin 28.3 pg (25.0-34.0); Mean Corpuscular Hgb Conc 32.2 g/dL (32.0-36.0); Mean Corpuscular Volume 87.8 fL (80.0-100.0); Mean Platelet Volume 10.8 fL (9.4-12.4); Platelet Count 347 K/uL (130-400); RDW Coefficient of Variation 12.8 % (11.5-14.5); RDW Standard Deviation 40.8 fL (36.4-46.3); White Blood Count 8.53 K/ul (4.8-10.8)
[2023-09-08 05:36] LABS: BUN Creatinine Ratio 19.2 (10-20); Creatinine Clr Calc Pharmacy 48.7 ml/min; Est GFR (African American) 55.1 ml/min; Est GFR (Non-African American) 47.6 ml/min; Magnesium 2.1 mg/dl (1.7-2.4); Phosphorus 2.9 mg/dl (2.5-4.9); Potassium 4.3 mmol/L (3.5-5.1)
--- NOTE | 2023-09-08 12:18 | Discharge Summary ---
Date of Service September 08, 2023 Admission HPI Per Admitting Provider History obtained from patient and records. 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 Last confinement 2021 for ARF on CKD, hypovolemic hyponatremia secondary to gastroenteritis. Few days history of nausea, vomiting, watery diarrhea symptoms without abdominal pain symptoms. No chest pain or shortness of breath. No fever, some chills. Recent food consumption at a [employer] in [place], [place]. No other family members were sick. No recent antibiotic Rx. Patient consulted ER for worsening symptoms. 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 Admission Exam Per Admitting Provider GENERAL: Comfortable, pleasant, no respiratory distress SKIN: Pallor, warm HEENT: Bespectacled, pale palpebral conjunctivae, no ptosis, dry buccal mucosa NECK : Supple, no tenderness CHEST : CTA, no tenderness HEART : RRR, no obvious murmurs ABDOMEN: Some distention, nontender EXTREMITIES : No LE swelling/tenderness, no other conspicuous deformities noted NEUROLOGIC : Coherent, no facial asymmetry, no other gross focality Principal Diagnosis Hyponatremia Acute on chronic kidney disease Gastroenteritis Discharge Exam Constitutional + well hydrated; no acute distress Eyes PERRL, conjunctivae normal, anicteric sclerae ENMT external ear and nose normal, oropharynx normal Respiratory normal respiratory effort, lungs clear to auscultation Cardiovascular Rate/Rhythm: regular rate and regular rhythm Gastrointestinal (Abdomen) normal bowel sounds, soft, nontender, no hepatosplenomegaly Musculoskeletal no cyanosis or clubbing, extremities motor strength 5/5 Neurologic PERRL, EOMI, accommodation nl, no face palsy, no dysarthria Psychiatric A+Ox3, euthymic affect Discharge Data Allergies Allergy/AdvReac Type Severity Reaction Status Date / Time lisinopril Allergy Intermediate Swelling Verified 09/07/23 02:40 of Lip/Tongue/Throat Consultations 09/07/23 01:41 ED Decision to Admit Stat 09/07/23 08:45 Consult Nephrology Routine Hospital Course (1) Acute hyponatremia: Hyponatremia Hypovolemic hyponatremia Secondary to acute gastroenteritis Similar to circumstances of confinement from 2 years ago Also had VASILE on CKD, NAGMA secondary to diarrheal illness Stool PCR/C diff were negative Was managed with IVF and supportive care Test Borer Helper evaluated while inpatient Hyponatremia and VASILE resolved All symptoms are completely resolved today Discharged home to follow up with PCP and Nephrology Hx nonocclusive CAD Hypertension, BP stable Hyperlipidemia on statin Rx Hypothyroidism, euthyroid 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 DM2 on oral medications Total Time Total Time Spent Total Time Spent (In Minutes): 35 Total Time Includes: Examination of the Patient, Discharge Planning and Medication Reconciliation Discharge Plan Discharge Items Patient Disposition: Home - Self-Care Reason For Visit: HYPONATREMIA Discharge Diagnosis: Hyponatremia Acute on chronic kidney disease Gastroenteritis Activity: Resume your previous activity Non-emergency contact: Primary Care Provider and Test Borer Helper Call non-emergency contact if: you have any medication questions Follow-up/Referrals: Nohemi Loredo MD, PhD [Physician] - (The Nephrology office will contact you for a follow up appointment and lab work.) Timmy Chavez MD [Primary Care Provider] - (Date & Time 09/14/2023 2:40 PM Provider Timmy Chavez MD Department [facility] ) Diet: Carb Consistent or DM2 Addtl Attending Provider Instructions: Mr Ghosh You came to the hospital for nausea, vomiting and diarrhea. You were evaluated and managed for the above listed diagnoses. Your symptoms resolved and you are being discharged home. Please ensure follow up with your Test Borer Helper and Family Doctor. It was a pleasure taking care of you. Pending Studies at Discharge: No Stand-Alone Forms: My Swank, Smoking Cessation Medications and DC Order Prescriptions: Continued metformin 500 mg tablet 500 mg PO BIDM carvedilol 25 mg tablet 37.5 mg PO BIDM fenofibrate micronized 67 mg capsule 67 mg PO DAILYBB terazosin 1 mg capsule 2 mg PO HS spironolactone 25 mg tablet 25 mg PO QAM levothyroxine 100 mcg tablet 100 mcg PO DAILYBB omeprazole 20 mg capsule,delayed release(DR/EC) 20 mg PO DAILY rosuvastatin 5 mg tablet 5 mg PO DAILY testosterone 20.25 mg/1.25 gram (1.62 %) gel in metered-dose pump 20.25 mg transdermal QAM Jardiance 25 mg tablet 25 mg PO DAILY Rx Instructions: 09/07/23 pt stopped taking this med two days ago due to possible side affects. Trulicity 4.5 mg/0.5 mL pen injector 4.5 mg SUBCUT WK Rx Instructions: take this med every Tuesday cetirizine [Zyrtec] 10 mg Tablet 10 mg PO HS amlodipine 10 mg Tablet 10 mg PO QAM fluticasone propionate 50 mcg/actuation [place],Suspension 1 spray INTRANASAL BID PRN (Reason: Congestion) Rx Instructions: administer into each nostril aspirin 81 mg Tablet,Delayed Release (Dr/Ec) 81 mg PO QAM albuterol sulfate 90 mcg/actuation Hfa Aerosol Inhaler 2 puff INHALATION QID PRN (Reason: Shortness Of Breath Or Wheezing) cyanocobalamin (vitamin B-12) 1,000 mcg Tablet 1,000 mcg PO DAILY cholecalciferol (vitamin D3) 50 mcg (2,000 unit) Tablet 2,000 unit PO DAILY Discharge Orders: Discharge Order (Routine); Ordered 09/08/23 Ordered By: Verónica Norris Admission Data Admit Date/Time: 09/07/23 03:44 Attending Provider: Verónica Norris I. Admit Provider: Dale Sosa Primary Care Provider: Timmy Chavez Other Providers: Dale Sosa Other Interventions: Discharge Summary Assessment (RN) Last Done: 09/08/23 13:40
--- NOTE | 2023-09-09 09:29 | Electrocardiogram Report ---
Test Reason : Blood Pressure : / mmHG Vent. Rate : 080 BPM Atrial Rate : 080 BPM P-R Int : 200 ms QRS Dur : 076 ms QT Int : 362 ms P-R-T Axes : 039 046 067 degrees QTc Int : 417 ms Normal sinus rhythm Normal ECG When compared with ECG of 14-OCT-2014 18:37, No significant change was found Confirmed by Alli Mazariegos ([id number]) on 09/09/2023 9:29:19 AM Referred By: REFERRED SELF Confirmed By:Alli Mazariegos
== END 2023-09-08 14:12 | disposition home or self-care (01) | DRG 641 ==
LOC: ED 21:20 → EDINP 09-07 03:44 → 2W 09-07 05:24
DX: Z11.52 Encounter for screening for COVID-19; I25.10 Atherosclerotic heart disease of native coronary artery without angina pectoris; Z79.82 Long term (current) use of aspirin; E23.0 Hypopituitarism; I12.9 Hypertensive chronic kidney disease with stage 1 through stage 4 chronic kidney disease, or unspecified chronic kidney disease; N18.30 Chronic kidney disease, stage 3 unspecified; E87.20 Acidosis, unspecified; G47.33 Obstructive sleep apnea (adult) (pediatric); D63.1 Anemia in chronic kidney disease; Z88.8 Allergy status to other drugs, medicaments and biological substances; Z79.890 Hormone replacement therapy; Z79.84 Long term (current) use of oral hypoglycemic drugs; Z79.899 Other long term (current) drug therapy; E87.1 Hypo-osmolality and hyponatremia; E03.9 Hypothyroidism, unspecified; E11.22 Type 2 diabetes mellitus with diabetic chronic kidney disease; K52.9 Noninfective gastroenteritis and colitis, unspecified; Z83.49 Family history of other endocrine, nutritional and metabolic diseases; E78.5 Hyperlipidemia, unspecified; Z83.3 Family history of diabetes mellitus; N17.9 Acute kidney failure, unspecified